=== PATIENT | male | born 1940 | race Caucasian/White ===

== ENCOUNTER → 2018-01-06 15:35 | Outpatient (REF) | payer MEDICARE, SELFPAY ==
[2018-01-06 19:46] LABS: Basophils # 0.1 K/mm3 (0-0.2); Basophils % 0.8 % (0.1-2.0); Eosinophils # 0.1 K/mm3 (0.0-0.4); Hematocrit 47.1 % (42.0-52.0); Hemoglobin 15.5 g/dL (14.1-18.0); Lymphocytes % 18.9 K/mm3 (10-50); Mean Corpuscular HGB Conc 32.9 g/dL (31.8-35.4); Mean Corpuscular Hemoglobin 29.8 pg (27.0-31.2); Mean Corpuscular Volume 90.6 fl (80-94); Mean Platelet Volume 8.6 fl (7.4-10.4); Monocytes # 0.5 K/mm3 (0.1-1.0); Monocytes % 5.1 % (1.7-9.3); Neutrophils # 7.9 K/mm3 (1.8-7.8); Neutrophils % 74.2 % (37.0-80.0); Platelet Count 244 K/mm3 (142-424); Red Cell Distribution Width 13.6 % (11.5-17.5); White Blood Count 10.7 K/mm3 (4.8-10.8)
[2018-01-06 20:32] LABS: Hemoglobin A1C 8.7 % (0.0-7.0)
[2018-01-06 20:52] LABS: Alanine Aminotransferase 23 U/L (12-78); Albumin Level 3.5 gm/dL (3.4-5.0); Alkaline Phosphatase 84 U/L (46-116); Anion Gap 17.3 mEq/L (5-15); Aspartate Amino Transferase 13 U/L (15-37); Bilirubin,Total 0.5 mg/dL (0.2-1.0); Blood Urea Nitrogen 17 mg/dL (7-18); Calcium 9.2 mg/dL (8.5-10.1); Carbon Dioxide 25 mmol/L (21.0-32.0); Chloride 103 mmol/L (98-107); Chol/HDL Ratio 4.1 (1-3.5); Cholesterol 150 mg/dL (140-200); Estimated Glomerular Filt Rate 65 ml/min (>60); GFR (African American) 79 ML/MIN (>60); Globulin 3.4 gm/dl (1.3-3.2); Glucose 239 mg/dL (74-106); HDL Cholesterol 37 mg/dL (27-67); LDL Cholesterol 71 mg/dL (0-130); Potassium 4.3 mmoL/L (3.5-5.1); Sodium 141 mmol/L (136-145); T4 (Thyroxine) 7.4 ug/dl (4.7-13.3); Thyroid Stimulating Hormone 2.87 uIU/ml (0.358-3.740); Total Protein,Serum 6.9 gm/dL (6.4-8.2); Triglycerides 212 mg/dL (30-200); VLDL Cholesterol 42 mg/dL (0-40)
[2018-01-08 12:34] LABS: Prostate Specific Ag 0.4 ng/mL (0.0-4.0)
[2018-01-08 12:35] LABS: PSA, Free 0.02 ng/mL
== END ==
LOC: LAB 15:35
PROVIDERS: Visit Provider Physician Assistant
DX: F32.1 Major depressive disorder, single episode, moderate (principal); E11.9 Type 2 diabetes mellitus without complications; E11.8 Type 2 diabetes mellitus with unspecified complications
CPT/HCPCS: 80053; 80061; 83036; 84153; 84154; 84436; 84443; 85025

== ENCOUNTER 2018-01-06 22:01 | Emergency (ER) | payer MEDICARE, SELFPAY ==
[2018-01-06 22:02] VITALS: BP 179/88; PULSE 93; RESP 16; TEMP 36.9; O2SAT 96; BMI 31.0
--- NOTE | 2018-01-06 22:13 | XR_ITS ---
XR elbow RT min 3V HISTORY: ITS.REASON: PAIN, SWELLING ORDERING PHYSICIAN: Scooter Ellis MD PATIENT AGE: 77 years COMPARISON: None FINDINGS: There are moderate osteoarthritic changes of the elbow joint with osteophytes involving the distal humerus, proximal radius and ulna. There is some decrease in joint space. The radial head has a somewhat lobular contour laterally and could be due to an old fracture. There is a positive anterior and posterior fat pad. IMPRESSION: 1. No acute displaced fracture. 2. Osteoarthritis of the elbow. 3. Positive fat pads consistent with joint effusion or hemarthrosis. If the patient has had recent trauma then, one must consider an occult fracture. In this case, CT may be of further value. There are some deformity of the radial head but this is felt to be chronic.
--- NOTE | 2018-01-06 22:13 | XR_ITS ---
XR chest 2V HISTORY: Chest pain ITS.REASON: RIGHT ARM PAIN ORDERING PHYSICIAN: Scooter Ellis MD PATIENT AGE: 77 years COMPARISON: 11/25/2014 FINDINGS: Borderline cardiomegaly without failure. Coronary artery stent versus calcification noted.. The lungs are clear without infiltrates, suspicious nodules, or pleural effusions. Degenerative change thoracic spine No acute bony abnormalities. IMPRESSION: 1. Borderline cardiomegaly with coronary artery disease 2. Otherwise negative
--- NOTE | 2018-01-06 22:26 | PC.NURSE ---
EKG COMPLETED A REPEAT WITH BETTER PLACEMENT
[2018-01-06 22:30] LABS: Basophils % 0.3 % (0.1-2.0); Eosinophils # 0.1 K/mm3 (0.0-0.4); Eosinophils % 0.6 % (0.1-12.0); Hematocrit 45.6 % (42.0-52.0); Hemoglobin 15.1 g/dL (14.1-18.0); Lymphocytes # 2.4 K/mm3 (0.7-4.5); Lymphocytes % 17.5 K/mm3 (10-50); Mean Corpuscular HGB Conc 33.2 g/dL (31.8-35.4); Mean Corpuscular Hemoglobin 29.8 pg (27.0-31.2); Mean Corpuscular Volume 89.6 fl (80-94); Mean Platelet Volume 7.9 fl (7.4-10.4); Monocytes # 0.6 K/mm3 (0.1-1.0); Monocytes % 4.2 % (1.7-9.3); Neutrophils # 10.5 K/mm3 (1.8-7.8); Neutrophils % 77.4 % (37.0-80.0); Platelet Count 248 K/mm3 (142-424); Red Blood Count 5.09 M/mm3 (4.60-6.20); Red Cell Distribution Width 13.6 % (11.5-17.5); White Blood Count 13.6 K/mm3 (4.8-10.8)
--- NOTE | 2018-01-06 22:40 | PC.NURSE ---
PT HELPED TO THE BATHROOM AT THIS TIME
[2018-01-06 22:57] LABS: Alanine Aminotransferase 20 U/L (12-78); Albumin Level 3.4 gm/dL (3.4-5.0); Albumin/Globulin Ratio 0.9 (1.1-1.8); Alkaline Phosphatase 75 U/L (46-116); Anion Gap 13.1 mEq/L (5-15); Aspartate Amino Transferase 12 U/L (15-37); Bilirubin,Total 0.5 mg/dL (0.2-1.0); Blood Urea Nitrogen 19 mg/dL (7-18); CKMB Relative Index 1.3 U/L (0-4.0); Calcium 8.9 mg/dL (8.5-10.1); Carbon Dioxide 29 mmol/L (21.0-32.0); Chloride 101 mmol/L (98-107); Creatine Kinase 60 U/L (39-308); Creatine Kinase MB 0.8 mg/ml (0.0-3.6); Creatinine Clearance Estimated 63 mL/min (0-300); Creatinine,Serum 1.25 mg/dL (0.70-1.30); Estimated Glomerular Filt Rate 56 ml/min (>60); GFR (African American) 68 ML/MIN (>60); Glucose 290 mg/dL (74-106); Potassium 4.1 mmoL/L (3.5-5.1); Sodium 139 mmol/L (136-145); Total Protein,Serum 7.4 gm/dL (6.4-8.2); Troponin I < 0.02 ng/ml (0.00-0.06)
[2018-01-06 23:02] VITALS: BP 181/91; PULSE 95; RESP 16
[2018-01-06 23:08] LABS: Lactic Acid 2.5 mmol/L (0.4-2.0)
--- NOTE | 2018-01-06 23:39 | PC.NURSE ---
PT HELPED TO THE BATHROOM AT THIS TIME
--- NOTE | 2018-01-07 00:40 | HMH.EDUPEXT ---
ED Disposition Clinical Impression: Arthritis, LBBB (left bundle branch block) Disposition: Home, Self-Care Condition on Discharge: Good Instructions: DI for Arthritis Additional Instructions: call pcp for follow up Prescriptions: predniSONE [Prednisone 20mg Tab] 20 mg PO DAILY #10 tab Referrals: Lili Seymour PA [Primary Care Provider] - - Critical Care Critical Care Time: No Attestation: On 01/06/18, the high probability of a clinically significant, sudden or life threatening deterioration of the following system(s) required my full and direct attention, intervention and personal management. The time I documented below is in addition to time spent performing reported procedures but includes the following listed in this critical care notation. Medical Decision Making - Medical Records Medical records reviewed: Yes: I reviewed the patient's medical records. Vital Signs: 01/06/18 22:02 01/06/18 23:02 Temperature 98.4 F Temperature Source Oral Pulse Rate [Right Brachial] 93 H 95 H Respiratory Rate 16 16 Blood Pressure [Right Arm] 179/88 181/91 Blood Pressure Mean [Right Arm] 118 121 02 Sat by Pulse Oximetry 96 Oxygen Delivery Method Room Air - Lab Data Lab results reviewed: Yes: I reviewed the patient's lab results. Lab Results 01/06/18 22:00: WBC 13.6 H D, RBC 5.09, Hgb 15.1, Hct 45.6, MCV 89.6, MCH 29.8, MCHC 33.2, RDW 13.6, Plt Count 248, MPV 7.9, Neut % (Auto) 77.4, Lymph % (Auto) 17.5, [place] % (Auto) 4.2, Eos % (Auto) 0.6, Baso % (Auto) 0.3, Neut # (Auto) 10.5 H, Lymph # (Auto) 2.4, [place] # (Auto) 0.6, Eos # (Auto) 0.1, Baso # (Auto) 0.0 01/06/18 22:00: Sodium 139, Potassium 4.1, Chloride 101, Carbon Dioxide 29, Anion Gap 13.1, BUN 19 H, Creatinine 1.25, Estimated Creat Clear 63, Estimated GFR 56 L, Est GFR ( Amer) 68, Glucose 290 H D, Calcium 8.9, Total Bilirubin 0.5, AST 12 L, ALT 20, Alkaline Phosphatase 75, Total Creatine Kinase 60, CK-MB (CK-2) 0.8, CK-MB (CK-2) Rel Index 1.3, Troponin I < 0.02, Total Protein 7.4, Albumin 3.4, Globulin 4.0 H, Albumin/Globulin Ratio 0.9 L 01/06/18 22:00: Lactic Acid 2.5 H Result diagrams: 01/06/18 22:00 01/06/18 22:00 Orders (Tests/Meds): ED MEDICATIONS Discontinued Medications Generic Name Dose Route Start Last Admin Trade Name Lamonteq PRN Reason Stop Dose Admin Ketorolac Tromethamine 30 mg 01/07/18 00:04 01/07/18 00:09 Toradol 30mg/Ml Vial IV 01/07/18 00:05 30 mg ONCE ONE Administration Methylprednisolone Sodium Succinate 125 mg 01/07/18 00:04 01/07/18 00:09 Solu-Medrol 125mg/2ml Vial IV 01/07/18 00:05 125 mg ONCE ONE Administration ORDERS Category Date Time Status Chest XR 2 view (NOT portable) [XR chest 2V] Stat Exams 01/06/18 22:13 Taken XR elbow RT min 3V Stat Exams 01/06/18 22:13 Taken Blood Culture Stat Micro 01/06/18 22:00 Received ECG Request by /Neville Stat Y 01/06/18 22:10 Ordered - Radiology Data #1 Image(s): Chest, Elbow Image Reviewed: Yes I reviewed the patient's radiology image Preliminary Findings: Abnormal, No Fracture Seen - ECG Data Tracing #1 I reviewed this ECG and interpreted as documented below: Normal Sinus Rhythm: Yes Conduction abnormalities present: LBBB - Cristiano Inquiry Pt receiving controlled substance: No Upper Extremity HPI - General Chief Complaint: Extremity Injury, Upper Stated Complaint: ARM PAIN Time Seen by Provider: 01/07/18 00:40 Mode of Arrival: Ambulatory Source of Information: Patient, Spouse, Relative, Medical Record Limitations: No Limitations - History of Present Illness HPI narrative: swelling and pain rt elbow w/o trauma today w/o gout hx- has diabetes and ht dis and neuropathy MD complaint: injury to: right, elbow Onset (ago): day(s) Other Extremity Injury: Right: elbow Handedness: right Place: home Severity: moderate Context: other - Related Data Home Medications Medication Instructio
--- NOTE | 2018-01-07 00:43 | ED_ITS ---
ED Disposition Clinical Impression: Arthritis, LBBB (left bundle branch block) Disposition: Home, Self-Care Condition on Discharge: Good Instructions: DI for Arthritis Additional Instructions: call pcp for follow up Prescriptions: predniSONE [Prednisone 20mg Tab] 20 mg PO DAILY #10 tab Referrals: Lili Seymour PA [Primary Care Provider] - - Critical Care Critical Care Time: No Attestation: On 01/06/18, the high probability of a clinically significant, sudden or life threatening deterioration of the following system(s) required my full and direct attention, intervention and personal management. The time I documented below is in addition to time spent performing reported procedures but includes the following listed in this critical care notation. Medical Decision Making - Medical Records Medical records reviewed: Yes: I reviewed the patient's medical records. Vital Signs: 01/06/18 22:02 01/06/18 23:02 Temperature 98.4 F Temperature Source Oral Pulse Rate [Right Brachial] 93 H 95 H Respiratory Rate 16 16 Blood Pressure [Right Arm] 179/88 181/91 Blood Pressure Mean [Right Arm] 118 121 02 Sat by Pulse Oximetry 96 Oxygen Delivery Method Room Air - Lab Data Lab results reviewed: Yes: I reviewed the patient's lab results. Lab Results 01/06/18 22:00: WBC 13.6 H D, RBC 5.09, Hgb 15.1, Hct 45.6, MCV 89.6, MCH 29.8, MCHC 33.2, RDW 13.6, Plt Count 248, MPV 7.9, Neut % (Auto) 77.4, Lymph % (Auto) 17.5, [place] % (Auto) 4.2, Eos % (Auto) 0.6, Baso % (Auto) 0.3, Neut # (Auto) 10.5 H, Lymph # (Auto) 2.4, [place] # (Auto) 0.6, Eos # (Auto) 0.1, Baso # (Auto) 0.0 01/06/18 22:00: Sodium 139, Potassium 4.1, Chloride 101, Carbon Dioxide 29, Anion Gap 13.1, BUN 19 H, Creatinine 1.25, Estimated Creat Clear 63, Estimated GFR 56 L, Est GFR ( Amer) 68, Glucose 290 H D, Calcium 8.9, Total Bilirubin 0.5, AST 12 L, ALT 20, Alkaline Phosphatase 75, Total Creatine Kinase 60, CK-MB (CK-2) 0.8, CK-MB (CK-2) Rel Index 1.3, Troponin I < 0.02, Total Protein 7.4, Albumin 3.4, Globulin 4.0 H, Albumin/Globulin Ratio 0.9 L 01/06/18 22:00: Lactic Acid 2.5 H Result diagrams: 01/06/18 22:00 01/06/18 22:00 Orders (Tests/Meds): ED MEDICATIONS Discontinued Medications Generic Name Dose Route Start Last Admin Trade Name Freq PRN Reason Stop Dose Admin Ketorolac Tromethamine 30 mg 01/07/18 00:04 01/07/18 00:09 Toradol 30mg/Ml Vial IV 01/07/18 00:05 30 mg ONCE ONE Administration Methylprednisolone Sodium Succinate 125 mg 01/07/18 00:04 01/07/18 00:09 Solu-Medrol 125mg/2ml Vial IV 01/07/18 00:05 125 mg ONCE ONE Administration ORDERS Category Date Time Status Chest XR 2 view (NOT portable) [XR chest 2V] Stat Exams 01/06/18 22:13 Taken XR elbow RT min 3V Stat Exams 01/06/18 22:13 Taken Blood Culture Stat Micro 01/06/18 22:00 Received ECG Request by /Neville Stat Y 01/06/18 22:10 Ordered - Radiology Data #1 Image(s): Chest, Elbow Image Reviewed: Yes I reviewed the patient's radiology image Preliminary Findings: Abnormal, No Fracture Seen - ECG Data Tracing #1 I reviewed this ECG and interpreted as documented below: Normal Sinus Rhythm: Yes Conduction abnormalities present: LBBB - Cristiano Inquiry Pt receiving controlled substance: No
[2018-01-07 00:46] VITALS: BP 208/101; PULSE 95; RESP 18; TEMP 36.7
== END 2018-01-07 00:52 | disposition home or self-care (01) ==
PROVIDERS: Emergency Provider Emergency Medicine; Family Provider Physician Assistant; PCP Physician Assistant
DX: M19.90 Unspecified osteoarthritis, unspecified site (principal); I44.7 Left bundle-branch block, unspecified; E11.40 Type 2 diabetes mellitus with diabetic neuropathy, unspecified; I25.2 Old myocardial infarction; Z79.82 Long term (current) use of aspirin; Z79.899 Other long term (current) drug therapy; Z86.79 Personal history of other diseases of the circulatory system
CPT/HCPCS: 71046; 73080; 80053; 80061; 82550; 82553; 83036; 83605; 84153; 84154; 84436; 84443; 84484; 85025; 87040; 93005; 93041; 96374; 96375; 99284

== ENCOUNTER → 2018-01-14 14:47 | Outpatient (CLI) | payer MEDICARE, SELFPAY ==
--- NOTE | 2018-01-14 14:48 | XR_ITS ---
XR chest 2V HISTORY: Weight loss, nausea and vomiting ITS.REASON: weight loss ORDERING PHYSICIAN: CHUCK Blancas PATIENT AGE: 77 years COMPARISON: [id number] FINDINGS: The cardiomediastinal silhouette and pulmonary vascularity are within normal limits. Coronary artery stent or calcification noted as before. Normal heart size. The lungs are clear without infiltrates, suspicious nodules, or pleural effusions. No acute bony abnormalities. IMPRESSION: No change with no acute finding
[2018-01-16 12:14] LABS: Folate 9.8 ng/mL (>3.0)
[2018-04-13 10:10] LABS: Testosterone, Total, LC/MS 266.9; Vitamin B12 195
[2018-04-13 10:11] LABS: 1,25 Dihydroxy Vitamin D 55; 1,25-Dihydroxy, Vitamin D-2 10; 1,25-Dihydroxy, Vitamin D-3 45; Testosterone,Free 11.3
== END ==
PROVIDERS: PCP Physician Assistant; Visit Provider Physician Assistant
DX: R63.4 Abnormal weight loss (principal)
CPT/HCPCS: 71046; 82607; 82652; 82746; 84402

== ENCOUNTER → 2018-01-14 14:56 | Outpatient (CLI) | payer MEDICARE, SELFPAY | PROVIDERS: Visit Provider Physician Assistant | DX: R63.4 Abnormal weight loss (principal); R53.82 Chronic fatigue, unspecified; R45.84 Anhedonia | CPT/HCPCS: 71046; 82607; 82652; 82746; 84402 ==

== ENCOUNTER → 2018-01-19 09:20 | Outpatient (CLI) | payer MEDICARE, SELFPAY | PROVIDERS: Family Provider Physician Assistant; PCP Physician Assistant; Visit Provider Physician Assistant | DX: R09.89 Other specified symptoms and signs involving the circulatory and respiratory systems (principal) ==

== ENCOUNTER → 2018-02-20 09:12 | Outpatient (POV) | payer MEDICARE, SELFPAY | PROVIDERS: Family Provider Physician Assistant; PCP Physician Assistant; Visit Provider Podiatrist | DX: Z00.00 Encounter for general adult medical examination without abnormal findings (principal) ==

== ENCOUNTER → 2018-08-05 08:44 | Outpatient (CLI) | payer MEDICARE, SELFPAY ==
[2018-08-05 09:37] LABS: Blood Urea Nitrogen 20 mg/dL (7-18); Estimated Glomerular Filt Rate 33 ml/min (>60); GFR (African American) 39 ML/MIN (>60)
--- NOTE | 2018-08-05 09:46 | CT_ITS ---
CT abdomen pelvis wo con CLINICAL INDICATION: Left lower quadrant pain ITS.REASON: LLQ PAIN ORDERING PHYSICIAN: Ev Gillis PATIENT AGE: 77 years COMPARISON: 03/18/2017 TECHNIQUE: Axial images obtained with sagittal and coronal reformats. All CT scans at the facility use one or more dose reduction, viz: automated exposure control, ma/kV adjustment per patient size (including targeted exams where dose is matched to indication, i.e. head), or iterative reconstruction technique. PROCEDURE: Oral Contrast: None IV Contrast: None . FINDINGS: Lower thoracic images show coronary artery calcification and/or stents lobe with bilateral valve annular calcification. There are multiple gallstones. The liver, spleen, adrenal glands, pancreas, and right kidney have an unremarkable appearance. There is mild left hydronephrosis and hydroureter secondary to a 3 mm stone at the ureterovesical junction. There is mild stranding of the left perinephric and periureteral fat. No intestinal obstruction or free air. Prior appendectomy. There is diverticulosis of the sigmoid colon. No evidence of diverticulitis. Prostate metallic seeds implants are noted. There is a small left inguinal hernia containing fat. No acute bony anomalies. Intramedullary kaden is present in the left femur. There is an old left symphysis pubis fracture IMPRESSION: 1. 3 mm left ureterovesical junction stone with mild left hydronephrosis and hydroureter along with stranding of the perinephric and periureteral fat on the left. 2. Cholelithiasis. 3. Left femoral hernia containing fat
== END ==
PROVIDERS: Family Provider Physician Assistant; PCP Nurse Practitioner Family; Visit Provider Nurse Practitioner Family
DX: R10.32 Left lower quadrant pain (principal)
CPT/HCPCS: 36415; 74176; 82565; 84520

== ENCOUNTER → 2019-04-16 07:53 | Outpatient (CLI) | payer MEDICARE, SELFPAY ==
--- NOTE | 2019-04-16 | CA_ITS ---
PROCEDURE: 2-D M-mode and color Doppler study INDICATIONS FOR THE TEST: Chest pain COPD Heart Murmur Tobacco Smoking Palpitations Fatigue+ Syncope Edema Hypertension+Diabetes Mellitus+ Rheumatic Fever SOB KIM Obesity Hyperlipidemia+ Family History HD Additional History CHF, CAD, GERD, HX OF MD, 3 STENTS PATIENT INFORMATION HEIGHT: 67 WEIGHT: 171 GENDER: Male B/P: 119/80 2-D/M-MODE INTERPRETATION: 2-D MEASUREMENTS OBSERVED VALUES IN CMS Right Ventricular Dimension (RVDd) 2.2 Interventricular Septum (Thickness)(IVsd) 1.1 Left Ventricular Internal Dimensions(LVIDd) 2.3 Left Ventricular Posterior Wall (Thickness)(LVPWd) 1.1 Aortic Root 3.5 Aortic Cusp Separation 2.2 Left Atrial Dimensions (LAD) 3.9 2D 1. Left atrium is mildly enlarged, left ventricle is normal size, mild concentric left ventricular hypertrophy, visually estimated ejection fraction 55%, there is abnormal septal motion. 2. The right atrium and right ventricle are normal size and contractility. 3. The aortic valve is thickened and calcified leaflet continue to display mobility. 4. Mitral and tricuspid valve leaflets are minimally thickened. 5. The pulmonic valve is poorly visualized. 6. No significant pericardial effusion noted. DOPPLER INTERROGATION: Doppler interrogation of the aortic, mitral and tricuspid valvular presence of mild mitral and tricuspid regurgitation, tricuspid regurgitation jet velocity is inadequate for calculation of the right ventricular systolic pressure, grade 1 diastolic dysfunction seen without tissue Doppler evidence of raised left atrial pressure. CONCLUSION: 1. Mildly enlarged left atrium, normal left ventricular size, mild concentric left ventricular hypertrophy, visually estimated ejection fraction 55%, there is abnormal septal motion, grade 1 diastolic dysfunction seen without tissue Doppler evidence of raised left atrial pressure. 2. Thickened and calcified aortic valve without aortic stenosis aortic insufficiency. 3. Mild mitral and tricuspid regurgitation 4. No significant pericardial effusion noted.
--- NOTE | 2019-04-16 07:57 | CT_ITS ---
CT head/brain wo con HISTORY: ITS.REASON: MILD COGNITIVE IMPAIMENT, HTN,FATIGUE ORDERING PHYSICIAN: Phil Yeager MD PATIENT AGE: 78 years COMPARISON: None TECHNIQUE: Axial images obtained without contrast. Brain and bone windows reviewed. All CT scans at the facility use one or more dose reduction, viz: automated exposure control, ma/kV adjustment per patient size (including targeted exams where dose is matched to indication, i.e. head), or iterative reconstruction technique. FINDINGS: No midline shift, mass effect, intracranial hemorrhage, hydrocephalus, or extra-axial fluid collection is evident. There is an old lacunar infarction with cystic encephalomalacia in the left basal ganglia anteriorly. There is mild generalized atrophy. The calvarium has an unremarkable appearance. No mastoid effusion. No sinus air-fluid levels.. IMPRESSION: 1. No acute intracranial findings. 2. Atrophy with old lacunar infarction of left basal ganglia
== END ==
PROVIDERS: PCP Internal Medicine Adolescent Medicine; Visit Provider Internal Medicine Adolescent Medicine
DX: G31.84 Mild cognitive impairment of uncertain or unknown etiology (principal); I10 Essential (primary) hypertension; R53.83 Other fatigue; R06.02 Shortness of breath
CPT/HCPCS: 70450; 93306; G0399

== ENCOUNTER → 2019-05-13 11:36 | Outpatient (CLI) | payer MEDICARE, SELFPAY | PROVIDERS: Visit Provider Urology | DX: C61 Malignant neoplasm of prostate (principal) | CPT/HCPCS: 36415; 84153 ==

== ENCOUNTER → 2019-08-30 11:29 | Outpatient (CLI) | payer MEDICARE, SELFPAY ==
[2019-08-30 14:56] LABS: Hemoglobin A1C 6.8 % (0.0-7.0)
== END ==
PROVIDERS: PCP Internal Medicine Adolescent Medicine; Visit Provider Internal Medicine Adolescent Medicine
DX: E11.9 Type 2 diabetes mellitus without complications (principal); Z79.4 Long term (current) use of insulin
CPT/HCPCS: 83036

== ENCOUNTER 2020-02-19 21:14 | Observation (INO) ==
[2020-02-19 21:26] LABS: Basophils # 0.1 K/mm3 (0-0.2); Basophils % 0.5 % (0.1-2.0); Eosinophils # 0.2 K/mm3 (0.0-0.4); Eosinophils % 1.1 % (0.1-12.0); Hematocrit 38.6 % (42.0-52.0); Hemoglobin 12.4 g/dL (14.1-18.0); Lymphocytes % 15.1 % (10-50); Mean Corpuscular HGB Conc 32.2 g/dL (31.8-35.4); Mean Corpuscular Volume 88.8 fl (80-94); Mean Platelet Volume 7.1 fl (7.4-10.4); Monocytes # 0.6 K/mm3 (0.1-1.0); Monocytes % 4.5 % (1.7-9.3); Neutrophils # 10.5 K/mm3 (1.8-7.8); Neutrophils % 78.9 % (37.0-80.0); Platelet Count 379 K/mm3 (142-424); Red Blood Count 4.35 M/mm3 (4.60-6.20); Red Cell Distribution Width 12.8 % (11.5-17.5); White Blood Count 13.3 K/mm3 (4.8-10.8)
[2020-02-19 21:31] LABS: Activated Partial Thrombo Time 25.9 seconds (23.6-34.0); INR 0.93 (0.9-1.1); Prothrombin Time 9.7 seconds (9.4-11.8)
[2020-02-19 21:33] LABS: Anion Gap 13.6 mEq/L (5-15)
[2020-02-19 21:34] LABS: Calcium 9.2 mg/dl (8.4-10.2)
[2020-02-19 21:39] LABS: Microscopic, Urine URINE MICROSCOPIC (MICROSCOPIC)
[2020-02-19 22:08] LABS: Appearance,Urine CLEAR (Clear); Bilirubin,Urine Negative (Negative); Blood, Urine 2+ (Negative); Color,Urine YELLOW (Yellow); Glucose,Urine (UA) Negative (Negative); Ketones,Urine Negative (Negative); Leukocyte Esterase,Urine Negative (Negative); Protein,Urine TRACE (Negative); Specific Gravity, Urine 1.025 (1.005-1.030); Urobilinogen,Urine 0.2 EU/dl (0.2)
--- NOTE | 2020-02-19 22:12 | Emergency Department Note ---
ED Disposition Clinical Impression: SIRS (systemic inflammatory response syndrome), LBBB (left bundle branch block), BRUCE (acute kidney injury) Type 2 diabetes mellitus Qualifiers: Diabetes mellitus intermediate insulin use: unspecified terminal make up operator insulin use status Diabetes mellitus complication status: with other specified complication Qualified Code(s): E11.69 - Type 2 diabetes mellitus with other specified complication Disposition: Admitted as Observation Condition on Discharge: Good Referrals: Provider,Referral, MD [Primary Care Provider] - - Critical Care Critical Care Time: No Attestation: On 02/19/20, the high probability of a clinically significant, sudden or life threatening deterioration of the following system(s) required my full and direct attention, intervention and personal management. The time I documented below is in addition to time spent performing reported procedures but includes the following listed in this critical care notation. Medical Decision Making - Medical Records Medical records reviewed: Yes: I reviewed the patient's medical records. - Cristiano Inquiry Pt receiving controlled substance: No Vital Signs: 02/19/20 21:06 02/19/20 21:36 02/19/20 22:29 Temperature 100.2 F H Temperature Source Rectal Pulse Rate [Left Radial] 104 H 94 H 96 H Respiratory Rate 16 16 16 Blood Pressure [Right Arm] 175/87 H 175/96 H 165/99 H Blood Pressure Mean [Right Arm] 116 122 121 Blood Pressure Source [Right Arm] Automatic Cuff Automatic Cuff Blood Pressure Position [Right Arm] Sitting Sitting Sitting 02 Sat by Pulse Oximetry 97 97 97 Oxygen Delivery Method Room Air Room Air Room Air 02/19/20 22:30 02/19/20 23:00 Temperature 99.1 F Temperature Source Oral Pulse Rate [Left Radial] 98 H 100 H Respiratory Rate 18 18 Blood Pressure [Right Arm] 189/96 H 188/93 H Blood Pressure Mean [Right Arm] 127 124 Blood Pressure Source [Right Arm] Automatic Cuff Automatic Cuff Blood Pressure Position [Right Arm] Supine Supine 02 Sat by Pulse Oximetry 99 99 Oxygen Delivery Method Room Air - Lab Data Lab results reviewed: Yes: I reviewed the patient's lab results. Lab Results 02/19/20 21:05: WBC 13.3 H, RBC 4.35 L, Hgb 12.4 L, Hct 38.6 L, MCV 88.8, MCH 28.6, MCHC 32.2, RDW 12.8, Plt Count 379, MPV 7.1 L, Neut % (Auto) 78.9, Lymph % (Auto) 15.1, [place] % (Auto) 4.5, Eos % (Auto) 1.1, Baso % (Auto) 0.5, Neut # (Auto) 10.5 H, Lymph # (Auto) 2.0, [place] # (Auto) 0.6, Eos # (Auto) 0.2, Baso # (Auto) 0.1 02/19/20 21:05: Sodium 136, Potassium 5.6 H, Chloride 98, Carbon Dioxide 30, Anion Gap 13.6, BUN 30 H, Creatinine 2.40 H, Estimated Creat Clear 24, Estimated GFR 26 L, Est GFR ( Amer) 32 L, Glucose 157 H, Calcium 9.2 02/19/20 21:05: PT 9.7, INR 0.93, APTT 25.9 02/19/20 21:05: Lactate 2.1 02/19/20 21:05: Troponin I < 0.01 02/19/20 21:30: Urine Color Yellow, Urine Appearance Clear, Urine pH 6.0, Ur Specific [place] 1.025, Urine Protein Trace, Urine Glucose (UA) Negative, Urine Ketones Negative, Urine Blood 2+, Urine Nitrate Negative, Urine Bilirubin Negative, Urine Urobilinogen 0.2, Ur Leukocyte Esterase Negative, Urine RBC 5- 10, Hyaline Casts 3-5, Coarse Granular Casts Occasional 02/19/20 21:30: Influenza Type A Ag Negative, Influenza Type B Ag Negative Result diagrams: 02/19/20 21:05 02/19/20 21:05 Orders (Tests/Meds): ED MEDICATIONS Generic Name Dose Route Start Last Admin Trade Name Freq PRN Reason Stop Dose Admin Sodium Chloride 1,000 mls @ 999 mls/hr 02/19/20 22:15 02/19/20 22:11 Sod Chlor 0.9% 1000ml Bag IV 02/19/20 23:15 999 mls/hr .Q1H1M CARLOS Administration ORDERS Category Date Time Status CXR --portable [XR chest portable] Stat Exams 02/19/20 22:22 Taken C-Reactive Protein Stat Lab 02/19/20 21:05 Received ESR [Erythrocyte Sedimentation Rate] Stat Lab 02/19/20 21:05 Received POC Glucose,Bedside Stat Lab 02/19/20 21:17 Ordered Troponin I Q3H Lab 02/20/20 01:15 Ordered Troponin I Q3H Lab 02/20/20 04:15 Ordered Uric Acid Stat Lab 02/19/20 21:05 Received Blood Culture Stat Micro 02/19/20 21:05 Received - Radiology Data #1 Image(s): Chest Image Reviewed: Yes I reviewed the patient's radiology image Preliminary Findings: Abnormal (cm) - CT Data CT Scan: Head Time Received: 23:[address] Reviewed: Yes: I have viewed the radiologist's interpretation Preliminary Findings: Abnormal (see report) - ECG Data Tracing #1 Normal Sinus Rhythm: Yes Ischemic changes: non-specific ST-T wave changes Conduction abnormalities present: LBBB ECG compared to prior tracings: there are no significant changes - Physician Consults Physician Consulted: temitope Reason -: Admission Neuro HPI - General Chief Complaint: Neuro Symptoms/Deficit Stated Complaint: right sided weakness Time Seen by Provider: 02/19/20 21:15 Mode of Arrival: Ambulatory Source of Information: Patient, EMS, Medical Record Limitations: No Limitations Description of Symptoms (Recalled from ER Triage Doc. by RN): pt stated the pt has had increased weakness on the right side since yesterday. pt is right handed and is usually able to feed and dress himself. pt isnt able to use his right hand and is unsteady on the right side when ambulating. pt has dementia and is unable to answer history questions. - History of Present Illness HPI Narrative: family reports temp 100.8 today and had pain and dec use of rt wrist - prev cva and has dementia and dec in speech function - no trauma - no cough Onset (ago): hour(s) Timing confirmed by: family member Location: right arm History of same: No Severity: moderate Context: gradual onset On Anticoagulants: No Associated symptoms: denies other symptoms Treatments Prior to Arrival: none - Related Data Home Medications: Home Medications Medication Instructions Recorded Confirmed aspirin 81 mg tablet,delayed 81 mg PO QDAY 12/04/17 02/19/20 release finasteride 5 mg tablet 5 mg PO ONCE 01/26/18 02/19/20 nitroglycerin 0.4 mg sublingual 0.4 mg SUBLINGUAL Q5M PRN 01/26/18 02/19/20 tablet Losartan Potassium [Cozaar 100mg 100 mg PO DAILY 09/23/18 02/19/20 Tablets] metformin 1,000 mg tablet 500 mg PO DAILY 90 Days tab 03/15/19 02/19/20 donepezil 5 mg tablet 10 mg PO DAILY tab 05/31/19 02/19/20 insulin glargine 100 unit/mL (3 15 unit SQ DAILY ml 05/31/19 02/19/20 mL) subcutaneous pen oxybutynin chloride 5 mg tablet 5 mg PO BID 01/25/20 02/19/20 Allergies/Adverse Reactions: Allergies Allergy/AdvReac Type Severity Reaction Status Date / Time pregabalin [From Lyrica] Allergy Verified 01/25/20 14:23 Stroke Alert/NIH Score - LOC Stroke Alert: Yes Stroke Alert date: 02/19/20 Stroke Alert time of activation: 21:00 Level of Consciousness: Alert LOC Questions: Both incorrect LOC Commands: Obeys both correctly - Facial/Visual Best Gaze: Normal Visual: No visual loss Facial Palsy: Normal - Motor Motor Response, Left Arm: No drift/Amputation/Fused Motor Response, Right Arm: Drift Motor Response, Left Leg: No drift/Amputation/Fused Motor Response, Right Leg: No drift/Amputation/Fused - Sensory/Language Limb Ataxia: Absent Sensory: Normal Best Language: Mild to moderate aphasia Dysarthria: Normal speech, Intubated or Barrier present - NIH Score Stroke Risk Score: 2 [facility] History - Hepatitis A Screen Drug use history?: No High risk sexual behaviors?: No History of sexually transmitted infection?: No Currently employed?: No Childcare worker?: No Do you have indoor plumbing?: Yes Do you have electricity?: Yes Attestation statement:: This patient has been screened for Hepatitis A risk factors. I have reviewed the patient's past medical history: Yes Medical History: Reports:: Cancer, Congestive Heart Failure, Coronary Artery Disease, Depression, Diabetes Mellitus Type 2, Gastroesophageal Reflux Disease(GERD), Myocardial Infarction Denies:: Diabetes Mellitus Type 1, Hyperlipidemia, Hypertension, Internal Pacemaker, Lung Disease, Seizures Other Medical History: Reports: Anemia Comment: BPH, Mild cognitive impairment, episode of major depression disorder, sleep disturbance Other Surgeries: Yes: Appendectomy, Cancer Surgery, Colonoscopy, Coronary Stent, Other. No: Pacemaker Amputation: No Fractures: No Comment: surgery Left leg - Social History Smoking Status: Never smoker Tobacco Type: cigarettes Alcohol Intake: never Alcohol Intake Frequency:: other Substance Use Type: denies use Occupational Status: retired Housing: house Household Members: family - Psychiatric History Pschychiatric History:: Reports:: Depression Family Hx:: Heart Attack, Diabetes ROS Obtained: Yes All systems reviewed & no additional complaints - Constitutional Constitutional: Reports fever(s) - Eyes Eyes: Denies change in vision - ENT Ears, Nose, Mouth, and Throat: Denies sore throat - Cardiovascular Cardiovascular: Denies chest pain - Respiratory Respiratory: No cough - Gastrointestinal Gastrointestingal: Denies: diarrhea - Genitourinary Male Genitourinary: Denies hematuria - Musculoskeletal Musculoskeletal: Reports as per HPI, Reports joint pain, Reports joint swelling, Reports limited range of motion - Integumentary/Breasts Skin/Breast: Denies rash - Neurologic Neurologic: Reports as per HPI, Reports abnormal speech, Denies focal weakness, Denies loss of vision, Denies seizure-like activity Physical Exam - General General appearance: alert - Head Head exam: normocephalic - Eye Eye exam: Present: PERRL, EOMI. Absent: scleral icterus - ENT ENT exam: Present: mucous membranes dry - Neck Neck exam: Present: trachea midline - Respiratory Respiratory exam: Present: normal lung sounds bilaterally. Absent: respiratory distress - Cardiovascular Cardiovascular exam: Present: regular rate, systolic murmur - Abdominal Exam Abdominal exam: Present: soft - Expanded Upper Extremity Exam Right Forearm/Wrist exam: Present: tenderness, swelling, other (inc warmth). Absent: full ROM Vascular exam: Normal: capillary refill - Neurological Exam Neurological exam: Present: alert, CN II-XII intact - Skin Skin exam: Absent: rash
[2020-02-19 22:14] LABS: Coarse Granular Casts,Urine Occasional #/lpf (0)
[2020-02-19 23:46] LABS: Uric Acid 6.7 mg/dl (3.5-8.5)
[2020-02-19 23:51] LABS: C-Reactive Protein 58.2 mg/L (0-4)
[2020-02-20 04:54] LABS: Anion Gap 11.6 mEq/L (5-15); Blood Urea Nitrogen 32 mg/dl (9-20); Calcium 8.7 mg/dl (8.4-10.2); Carbon Dioxide 25 mmol/L (22.0-30.0); Chloride 102 mmol/L (98-107); Sodium 133 mmol/L (136-145)
[2020-02-20 05:10] LABS: Glucose 195 mg/dl (74-100)
[2020-02-20 05:12] LABS: Basophils % 0.2 % (0.1-2.0); Eosinophils % 0.1 % (0.1-12.0); Hematocrit 34.8 % (42.0-52.0); Hemoglobin 11.5 g/dL (14.1-18.0); Lymphocytes # 0.9 K/mm3 (0.7-4.5); Lymphocytes % 7.6 % (10-50); Mean Corpuscular HGB Conc 33.1 g/dL (31.8-35.4); Mean Corpuscular Volume 86.3 fl (80-94); Mean Platelet Volume 7.8 fl (7.4-10.4); Monocytes # 0.2 K/mm3 (0.1-1.0); Monocytes % 1.7 % (1.7-9.3); Neutrophils # 11.1 K/mm3 (1.8-7.8); Neutrophils % 90.4 % (37.0-80.0); Platelet Count 343 K/mm3 (142-424); Red Blood Count 4.03 M/mm3 (4.60-6.20); Red Cell Distribution Width 12.9 % (11.5-17.5); White Blood Count 12.3 K/mm3 (4.8-10.8)
[2020-02-20 06:36] LABS: Lymphocytes % 4 % (10-50); Neutrophils % 90 % (42-76); RBC Morphology Normal; Total Cells Counted 100
--- NOTE | 2020-02-20 08:04 | Pharmacy Consult Notes ---
[facility] Pharmacy VTE Monitoring - Patient Demographics Admission date: 02/20/20 Report Date: 02/20/20 Time: 08:04 Allergies/Adverse Reactions: Patient Allergies pregabalin [From Lyrica] Allergy (Verified 01/25/20 14:23) Height: 1.7 m Weight: 76.26 kg Patient Problems: Current Active Problems SIRS (systemic inflammatory response syndrome) (Acute) BRUCE (acute kidney injury) (Acute) LBBB (left bundle branch block) (Acute) Type 2 diabetes mellitus (Acute) - VTE Risk Labs: VTE Related Lab Results Hgb 11.5 g/dL (14.1-18.0) L 02/20/20 04:30 Hct 34.8 % (42.0-52.0) L 02/20/20 04:30 Plt Count 343 K/mm3 (142-424) 02/20/20 04:30 PT 9.7 seconds (9.4-11.8) 02/19/20 21:05 INR 0.93 (0.9-1.1) 02/19/20 21:05 APTT 25.9 seconds (23.6-34.0) 02/19/20 21:05 BUN 32 mg/dl (9-20) H 02/20/20 04:30 Creatinine 2.20 mg/dl (0.66-1.25) H 02/20/20 04:30 Estimated Creat Clear 29 mL/min (50-200) 02/20/20 04:30 VTE Score: 8 VTE Risk Level: Moderate Risk - Prophylaxis Types of VTE Prophylaxis: TEDS Knee High (HARDIK HOSE ORDER PLACED) Location of Applied Device: Not Applicable
--- NOTE | 2020-02-20 10:25 | H&P/Discharge Summary ---
General - General Admission date:: 02/20/20 Discharge date: 02/20/20 *Admission Date: 02/20/20 *Chief complaint: Fatigue, wrist pain, SIRS *History of present illness: 79-year-old gentleman with history of dementia, diabetes, progressive decline over the past several months who presents from home via EMS to the ER. Patient recently excepted to hospice for further management of his dementia. Family has been pleased with the daily nursing assistance however displeased with patient's medical management as they were not fully aware that his symptoms would be managed and not treated more aggressively. They state over the past 24 to 48 hours prior to admission he had developed some worsening weakness. Additionally had some acute onset of right wrist pain with no known trauma. Upon presentation, patient found to have warm tender right wrist. Additionally noted to have worsening BRUCE. Was quite fatigued and had Sirs criteria with tachycardia and elevated white count. No focal source of infection identified at this time. Initiated on antibiotics with cultures obtained. IV fluids administered. Admitted to medicine for further management and observation overnight. [facility] History Medical History: Reports:: Cancer (Prostate), Congestive Heart Failure, Coronary Artery Disease, Depression, Diabetes Mellitus Type 2, Gastroesophageal Reflux Disease(GERD), Myocardial Infarction Denies:: Diabetes Mellitus Type 1, Hyperlipidemia, Hypertension, Internal Pacemaker, Lung Disease, Seizures *Have you ever received a pneumonia vaccine?: Yes *Have you received a flu vaccine this season?: Yes Other Medical History: Reports: Anemia Other Surgeries: Yes: Appendectomy, Cancer Surgery, Colonoscopy, Coronary Stent, Other. No: Pacemaker Amputation: No Fractures: No - *Social History Smoking Status: Never smoker Tobacco Type: cigarettes Alcohol Intake: never Alcohol Intake Frequency:: other Substance Use Type: denies use *Occupational Status:: retired Housing: house Household Members: spouse *Travel in the last 8 weeks: None - Psychiatric History Pschychiatric History:: Reports:: Depression Family Hx:: Unable to obtain Review of Systems - *Neurologic Reports abnormal speech, Denies localized weakness, Denies loss of vision, Denies seizure-like activity Exam Vital signs and Labs for Last 24 Hours: Temp Pulse Resp BP Pulse Ox 98.2 F 76 18 126/63 95 02/20/20 07:48 02/20/20 07:48 02/20/20 07:48 02/20/20 07:48 02/20/20 07:48 Laboratory Results - last 24 hr 02/19/20 21:05: WBC 13.3 H, RBC 4.35 L, Hgb 12.4 L, Hct 38.6 L, MCV 88.8, MCH 28.6, MCHC 32.2, RDW 12.8, Plt Count 379, MPV 7.1 L, Neut % (Auto) 78.9, Lymph % (Auto) 15.1, [place] % (Auto) 4.5, Eos % (Auto) 1.1, Baso % (Auto) 0.5, Neut # (Auto) 10.5 H, Lymph # (Auto) 2.0, [place] # (Auto) 0.6, Eos # (Auto) 0.2, Baso # (Auto) 0.1 02/19/20 21:05: Sodium 136, Potassium 5.6 H, Chloride 98, Carbon Dioxide 30, Anion Gap 13.6, BUN 30 H, Creatinine 2.40 H, Estimated Creat Clear 24, Estimated GFR 26 L, Est GFR ( Amer) 32 L, Glucose 157 H, Calcium 9.2 02/19/20 21:05: PT 9.7, INR 0.93, APTT 25.9 02/19/20 21:05: Lactate 2.1 02/19/20 21:05: Troponin I < 0.01 02/19/20 21:05: ESR 85 H 02/19/20 21:05: Uric Acid 6.7, C-Reactive Protein 58.2 H 02/19/20 21:30: Urine Color Yellow, Urine Appearance Clear, Urine pH 6.0, Ur Specific [place] 1.025, Urine Protein Trace, Urine Glucose (UA) Negative, Urine Ketones Negative, Urine Blood 2+, Urine Nitrate Negative, Urine Bilirubin Negative, Urine Urobilinogen 0.2, Ur Leukocyte Esterase Negative, Urine RBC 5- 10, Hyaline Casts 3-5, Coarse Granular Casts Occasional 02/19/20 21:30: Influenza Type A Ag Negative, Influenza Type B Ag Negative 02/20/20 01:20: Troponin I < 0.01 02/20/20 01:20: Lactate 1.2 02/20/20 04:30: Sodium 133 L, Potassium 5.6 H, Chloride 102, Carbon Dioxide 25, Anion Gap 11.6, BUN 32 H, Creatinine 2.20 H, Estimated Creat Clear 29, Estimated GFR 29 L, Est GFR ( Amer) 35 L, Glucose 195 H D, Calcium 8.7, Troponin I < 0.01 02/20/20 04:30: WBC 12.3 H, RBC 4.03 L, Hgb 11.5 L, Hct 34.8 L, MCV 86.3, MCH 28.6, MCHC 33.1, RDW 12.9, Plt Count 343, MPV 7.8, Neut % (Auto) 90.4 H, Lymph % (Auto) 7.6 L, [place] % (Auto) 1.7, Eos % (Auto) 0.1, Baso % (Auto) 0.2, Neut # (Auto) 11.1 H, Lymph # (Auto) 0.9, [place] # (Auto) 0.2, Eos # (Auto) 0.0, Baso # (Auto) 0.0, Total Counted 100, Neutrophils % (Manual) 90 H, Band Neutrophils % 6.0, Lymphocytes % (Manual) 4 L, Platelet Estimate Normal, RBC Morphology Normal 02/20/20 06:22: POC Glucose 215 H I & O for Last 24 hours: Intake & Output 02/17/20 02/18/20 02/19/20 02/20/20 23:59 23:59 23:59 23:59 Intake Total 804 / 804 Balance 804 / 804 Weight 68.039 kg 76.26 kg - Constitutional no acute distress, average body habitus, cooperative - *Routine HEENT Exam Head: Present: normocephalic Eye: Present: EOMI, PERRL ENT: Present: mucous membranes moist - *Routine Neck Exam Present: supple. Absent: lymphadenopathy - *Routine Respiratory Exam Present: CTA bilaterally - *Routine Cardiovascular Exam Present: RRR - *Routine Abdominal Exam Present: soft, normoactive bowel sounds. Absent: tenderness - *Routine Extremities Exam Absent: cyanosis, clubbing, edema Comments: Right wrist mildly warm compared to left, tender to palpation on the dorsum of right wrist, no significant swelling or erythema; movement in hands bilaterally intact. No other swollen joints appreciated - *Routine Skin Exam Present: warm. Absent: rash - *Routine Neurological Exam Present: alert Oriented x2. Cooperative. No focal neurologic deficits Hospital Course Hospital Course: Admitted to medicine for Sirs and BRUCE. Responded well to IV fluids with improvement in creatinine. Tolerating p.o. intake. Patient appeared in no distress this morning on exam. Stated he was feeling much better and comfortable going home. Had discussion with patient's who felt comfortable taking him home at this time. Plan to complete empiric course of Augmentin while cultures are pending. Suspect right wrist was warm and painful due to gout however given patient's diabetes and worsening kidney function. Will repeat labs later this week and have close follow-up in the outpatient setting. Patient afebrile, hemodynamically stable, decreased blood pressure medication dosage in the setting of BRUCE and using an ARB at home. Stressed the importance of p.o. fluids to . She felt comfortable taking him home today. Denies chest pain, nausea, vomiting, diarrhea, dysuria, focal weakness, confusion. No complaint of pain until right wrist is touched however has good range of motion. Medically stable for discharge Results Labs on day of discharge: Labs from last 24 hours 02/20/20 02/20/20 02/20/20 06:22 04:30 04:30 WBC 12.3 H RBC 4.03 L Hgb 11.5 L Hct 34.8 L MCV 86.3 MCH 28.6 MCHC 33.1 RDW 12.9 Plt Count 343 MPV 7.8 Neut % (Auto) 90.4 H Lymph % (Auto) 7.6 L [place] % (Auto) 1.7 Eos % (Auto) 0.1 Baso % (Auto) 0.2 Neut # (Auto) 11.1 H Lymph # (Auto) 0.9 [place] # (Auto) 0.2 Eos # (Auto) 0.0 Baso # (Auto) 0.0 Total Counted 100 Neutrophils % (Manual) 90 H Band Neutrophils % 6.0 Lymphocytes % (Manual) 4 L Platelet Estimate Normal RBC Morphology Normal ESR PT INR APTT Sodium 133 L Potassium 5.6 H Chloride 102 Carbon Dioxide 25 Anion Gap 11.6 BUN 32 H Creatinine 2.20 H Estimated Creat Clear 29 Estimated GFR 29 L Est GFR ( Amer) 35 L Glucose 195 H D POC Glucose 215 H Lactate Uric Acid Calcium 8.7 Troponin I < 0.01 C-Reactive Protein Urine Color Urine Appearance Urine pH Ur Specific [place] Urine Protein Urine Glucose (UA) Urine Ketones Urine Blood Urine Nitrate Urine Bilirubin Urine Urobilinogen Ur Leukocyte Esterase Urine RBC Hyaline Casts Coarse Granular Casts Influenza Type A Ag Influenza Type B Ag 02/20/20 02/20/20 02/19/20 01:20 01:20 21:30 WBC RBC Hgb Hct MCV MCH MCHC RDW Plt Count MPV Neut % (Auto) Lymph % (Auto) [place] % (Auto) Eos % (Auto) Baso % (Auto) Neut # (Auto) Lymph # (Auto) [place] # (Auto) Eos # (Auto) Baso # (Auto) Total Counted Neutrophils % (Manual) Band Neutrophils % Lymphocytes % (Manual) Platelet Estimate RBC Morphology ESR PT INR APTT Sodium Potassium Chloride Carbon Dioxide Anion Gap BUN Creatinine Estimated Creat Clear Estimated GFR Est GFR ( Amer) Glucose POC Glucose Lactate 1.2 Uric Acid Calcium Troponin I < 0.01 C-Reactive Protein Urine Color Urine Appearance Urine pH Ur Specific [place] Urine Protein Urine Glucose (UA) Urine Ketones Urine Blood Urine Nitrate Urine Bilirubin Urine Urobilinogen Ur Leukocyte Esterase Urine RBC Hyaline Casts Coarse Granular Casts Influenza Type A Ag Negative Influenza Type B Ag Negative 02/19/20 02/19/20 02/19/20 21:30 21:05 21:05 WBC RBC Hgb Hct MCV MCH MCHC RDW Plt Count MPV Neut % (Auto) Lymph % (Auto) [place] % (Auto) Eos % (Auto) Baso % (Auto) Neut # (Auto) Lymph # (Auto) [place] # (Auto) Eos # (Auto) Baso # (Auto) Total Counted Neutrophils % (Manual) Band Neutrophils % Lymphocytes % (Manual) Platelet Estimate RBC Morphology ESR 85 H PT INR APTT Sodium Potassium Chloride Carbon Dioxide Anion Gap BUN Creatinine Estimated Creat Clear Estimated GFR Est GFR ( Amer) Glucose POC Glucose Lactate Uric Acid 6.7 Calcium Troponin I C-Reactive Protein 58.2 H Urine Color Yellow Urine Appearance Clear Urine pH 6.0 Ur Specific [place] 1.025 Urine Protein Trace Urine Glucose (UA) Negative Urine Ketones Negative Urine Blood 2+ Urine Nitrate Negative Urine Bilirubin Negative Urine Urobilinogen 0.2 Ur Leukocyte Esterase Negative Urine RBC 5-10 Hyaline Casts 3-5 Coarse Granular Casts Occasional Influenza Type A Ag Influenza Type B Ag 02/19/20 02/19/20 02/19/20 21:05 21:05 21:05 WBC RBC Hgb Hct MCV MCH MCHC RDW Plt Count MPV Neut % (Auto) Lymph % (Auto) [place] % (Auto) Eos % (Auto) Baso % (Auto) Neut # (Auto) Lymph # (Auto) [place] # (Auto) Eos # (Auto) Baso # (Auto) Total Counted Neutrophils % (Manual) Band Neutrophils % Lymphocytes % (Manual) Platelet Estimate RBC Morphology ESR PT 9.7 INR 0.93 APTT 25.9 Sodium Potassium Chloride Carbon Dioxide Anion Gap BUN Creatinine Estimated Creat Clear Estimated GFR Est GFR ( Amer) Glucose POC Glucose Lactate 2.1 Uric Acid Calcium Troponin I < 0.01 C-Reactive Protein Urine Color Urine Appearance Urine pH Ur Specific [place] Urine Protein Urine Glucose (UA) Urine Ketones Urine Blood Urine Nitrate Urine Bilirubin Urine Urobilinogen Ur Leukocyte Esterase Urine RBC Hyaline Casts Coarse Granular Casts Influenza Type A Ag Influenza Type B Ag 02/19/20 02/19/20 21:05 21:05 WBC 13.3 H RBC 4.35 L Hgb 12.4 L Hct 38.6 L MCV 88.8 MCH 28.6 MCHC 32.2 RDW 12.8 Plt Count 379 MPV 7.1 L Neut % (Auto) 78.9 Lymph % (Auto) 15.1 [place] % (Auto) 4.5 Eos % (Auto) 1.1 Baso % (Auto) 0.5 Neut # (Auto) 10.5 H Lymph # (Auto) 2.0 [place] # (Auto) 0.6 Eos # (Auto) 0.2 Baso # (Auto) 0.1 Total Counted Neutrophils % (Manual) Band Neutrophils % Lymphocytes % (Manual) Platelet Estimate RBC Morphology ESR PT INR APTT Sodium 136 Potassium 5.6 H Chloride 98 Carbon Dioxide 30 Anion Gap 13.6 BUN 30 H Creatinine 2.40 H Estimated Creat Clear 24 Estimated GFR 26 L Est GFR ( Amer) 32 L Glucose 157 H POC Glucose Lactate Uric Acid Calcium 9.2 Troponin I C-Reactive Protein Urine Color Urine Appearance Urine pH Ur Specific [place] Urine Protein Urine Glucose (UA) Urine Ketones Urine Blood Urine Nitrate Urine Bilirubin Urine Urobilinogen Ur Leukocyte Esterase Urine RBC Hyaline Casts Coarse Granular Casts Influenza Type A Ag Influenza Type B Ag DS: Diagnosis - Discharge Diagnosis (1) Dementia Status: Chronic (2) BRUCE (acute kidney injury) Status: Acute (3) SIRS (systemic inflammatory response syndrome) Status: Acute (4) Type 2 diabetes mellitus Status: Chronic (5) Gout attack Status: Acute Problem details: right wrist Discharge Plan - Patient Discharge Instructions ACTIVITY: Continue current activity DIET: continue same diet Patient Instructions: DI for Diabetes Type 2, DI for Acute Kidney Injury - Follow up Plan Follow up with: Phil Yeager MD [Staff Physician] - 2 weeks Disposition: Home, Self-Group Home Medications: Home Medications Medication Instructions Recorded Confirmed Type aspirin 81 mg tablet,delayed 81 mg PO DAILY 12/04/17 02/20/20 History release finasteride 5 mg tablet 5 mg PO ONCE 01/26/18 02/19/20 History metformin 1,000 mg tablet 500 mg PO DAILY 90 Days tab 03/15/19 02/19/20 History insulin glargine 100 unit/mL (3 15 unit SQ DAILY ml 05/31/19 02/19/20 History mL) subcutaneous pen oxybutynin chloride 5 mg tablet 5 mg PO BID 01/25/20 02/19/20 History Amoxicillin/Potassium Clav 1 tab PO Q12H 9 Days #18 tab 02/20/20 Rx [Augmentin 875-125 Tablet] Donepezil HCl [Aricept 10mg 10 mg PO HS 02/20/20 02/20/20 History tablet] Losartan Potassium [Cozaar 100mg 50 mg PO DAILY 30 Days #15 tab 02/20/20 Rx Tablets] Prescriptions/Medication Reconciliation: New Amoxicillin/Potassium Clav [Augmentin 875-125 Tablet] 1 tab PO Q12H 9 Days #18 tab Losartan Potassium [Cozaar 100mg Tablets] 50 mg PO DAILY 30 Days #15 tab Continued aspirin 81 mg tablet,delayed release 81 mg PO DAILY finasteride 5 mg tablet 5 mg PO ONCE metformin 1,000 mg tablet 500 mg PO DAILY 90 Days tab insulin glargine 100 unit/mL (3 mL) subcutaneous pen 15 unit SQ DAILY ml oxybutynin chloride 5 mg tablet 5 mg PO BID Donepezil HCl [Aricept 10mg tablet] 10 mg PO HS Discontinued nitroglycerin 0.4 mg sublingual tablet 0.4 mg SUBLINGUAL Q5M PRN PRN Reason: Chest Pain Citalopram Hydrobromide [Celexa 40mg Tablet] 20 mg PO DAILY - Problem Reconciliation Problems Reviewed?: Yes
--- NOTE | 2020-02-21 16:12 | Electrocardiograph Report ---
APPROVED REPORT Exam: Resting ECG HR:100 bpm ECG Measurements Heart Rate 100 AXES UT 152 P 45 QRSd 128 QRS 27 QT 384 T14 QTc 495 <Conclusion> Normal sinus rhythm Left bundle branch block Abnormal ECG Electronically signed by : Martínez Castellon, 02/21/2020 16:12:13
== END 2020-02-20 15:00 | disposition home or self-care (01) ==
LOC: ER 21:14 → 2ND 21:14
PROVIDERS: ADMIT Internal Medicine Adolescent Medicine; ATTEND Internal Medicine Adolescent Medicine
CPT/HCPCS: 36415; 70450; 71010; 71045; 80048; 81001; 82962; 83605; 84484; 84550; 85007; 85025; 85610; 85651; 85730; 86140; 87040; 87275; 87276; 93005; 96365; 96367; 96375; 99285; G0378

== ENCOUNTER → 2020-02-25 09:55 | Outpatient (CLI) | payer MEDICARE, SELFPAY ==
--- NOTE | 2020-02-25 10:01 | XR_ITS ---
PROCEDURE: XR WRIST RT MIN 3V CLINICAL INDICATION: RT WRIST PAIN COMPARISON: No exams were available for comparison FINDINGS: Osteoarthritic changes are present involving the scapho trapezium joint and 1st metacarpal-carpal joint. No other significant anomalies are evident. 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
[2020-02-25 11:06] LABS: Erythrocyte Sedimentation Rate 112 mm/hr (0-20)
[2020-02-25 15:09] LABS: C-Reactive Protein 62.2 mg/L (0-4)
== END ==
PROVIDERS: PCP Internal Medicine Adolescent Medicine; Visit Provider Internal Medicine Adolescent Medicine
DX: M25.531 Pain in right wrist (principal)
CPT/HCPCS: 36415; 73110; 85651; 86140

== ENCOUNTER → 2020-05-11 12:08 | Outpatient (CLI) | payer MEDICARE, SELFPAY ==
[2020-05-11 14:04] LABS: Prostate Specific Ag, Diagnost 0.188 ng/ml (0.0-4.0)
== END ==
PROVIDERS: Visit Provider Urology
DX: C61 Malignant neoplasm of prostate (principal)
CPT/HCPCS: 36415; 84153

== ENCOUNTER → 2020-05-29 15:36 | Outpatient (CLI) | payer MEDICARE, SELFPAY ==
[2020-05-29 16:11] LABS: Basophils # 0.1 K/mm3 (0-0.2); Basophils % 0.9 % (0.1-2.0); Eosinophils # 0.2 K/mm3 (0.0-0.4); Eosinophils % 2.4 % (0.1-12.0); Hematocrit 34.5 % (42.0-52.0); Hemoglobin 11.8 g/dL (14.1-18.0); Lymphocytes % 31.5 % (10-50); Mean Corpuscular HGB Conc 34.3 g/dL (31.8-35.4); Mean Corpuscular Volume 87.4 fl (80-94); Mean Platelet Volume 7.5 fl (7.4-10.4); Monocytes # 0.4 K/mm3 (0.1-1.0); Monocytes % 3.8 % (1.7-9.3); Neutrophils # 5.8 K/mm3 (1.8-7.8); Neutrophils % 61.4 % (37.0-80.0); Platelet Count 311 K/mm3 (142-424); Red Blood Count 3.95 M/mm3 (4.60-6.20); Red Cell Distribution Width 15.1 % (11.5-17.5); White Blood Count 9.4 K/mm3 (4.8-10.8)
[2020-05-29 16:33] LABS: Hemoglobin A1C 7.4 % (4.0-6.0)
[2020-05-29 19:00] LABS: Chloride 101 mmol/L (98-107)
[2020-05-29 19:01] LABS: Sodium 133 mmol/L (136-145)
[2020-05-29 19:03] LABS: Alanine Aminotransferase 14 U/L (12-78); Aspartate Amino Transferase 17 U/L (17-59); Blood Urea Nitrogen 22 mg/dl (9-20); Estimated Glomerular Filt Rate 39 ml/min (>60); GFR (African American) 47 ML/MIN (>60); Potassium 4.9 mmoL/L (3.5-5.1)
[2020-05-29 19:04] LABS: Albumin Level 3.1 g/dl (3.5-5.0); Alkaline Phosphatase 96 U/L (38-126); Anion Gap 10.9 mEq/L (5-15); Bilirubin,Total 0.4 mg/dl (0.2-1.3); Calcium 8.8 mg/dl (8.4-10.2); Carbon Dioxide 26 mmol/L (22.0-30.0); Glucose 222 mg/dl (74-100); Total Protein,Serum 6.1 g/dl (6.3-8.2)
[2020-05-29 20:03] LABS: Erythrocyte Sedimentation Rate 63 mm/hr (0-20)
== END ==
PROVIDERS: Visit Provider Internal Medicine Adolescent Medicine
DX: I10 Essential (primary) hypertension (principal); M25.531 Pain in right wrist; E11.9 Type 2 diabetes mellitus without complications; Z79.4 Long term (current) use of insulin
CPT/HCPCS: 36415; 80053; 83036; 85025; 85651; 86140

== ENCOUNTER → 2020-05-30 08:52 | Outpatient (CLI) | payer MEDICARE, SELFPAY ==
--- NOTE | 2020-05-30 08:58 | CT_ITS ---
PROCEDURE: CT ABDOMEN PELVIS W CON CLINICAL INDICATION: Follow-up colon cancer COMPARISON: [facility] abdomen pelvis wo con from 08/05/2018 TECHNIQUE: IV Contrast: 75ML OPTIRAY 350 Oral Contrast 450ml Redicat Axial images obtained with sagittal and coronal reformats. All CT scans at the facility use one or more dose reduction, viz: automated exposure control, ma/kV adjustment per patient size (including targeted exams where dose is matched to indication, i.e. head), or iterative reconstruction technique. FINDINGS: LOWER THORAX: No acute finding ABDOMEN & PELVIS: There are multiple gallstones present. No focal liver lesion evident. The spleen, adrenal glands, have an unremarkable appearance. There is pancreatic atrophy without obvious pancreatic mass. There is mild prominence of the right renal pelvis. There is moderate left hydronephrosis and hydroureter secondary to a 19 by 10 mm stone in the mid left ureter at the L3 level. No intestinal obstruction or free air. No evidence of appendicitis or diverticulitis. There are prostate seed implants present. No pelvic or abdominal mass adenopathy or abnormal fluid collection. There is colonic diverticulosis without evidence of diverticulitis. There is an old pubic bone fracture medially. Intramedullary kaden is present in the left femur. There is a small left inguinal hernia containing fat IMPRESSION: 1. No evidence of metastatic disease. 2. 19 x 10 mm left mid ureteral stone with moderate left hydroureteronephrosis 3. Cholelithiasis Dictated by: Taye Gould MD 05/31/2020 11:14 Electronically signed by Taye Gould MD in [place] 05/31/2020 11:14
--- NOTE | 2020-05-30 08:58 | CT_ITS ---
PROCEDURE: CT CHEST W CON CLINCAL INDICATION: COLON CANCER Follow-up colon cancer COMPARISON: [facility] CT abdomen pelvis wo con from 08/05/2018 CT ABDOMEN PELVIS W CON from 05/30/2020 TECHNIQUE: IV Contrast: 75ml Optiray 350 Axial images obtained with sagittal and coronal reformats. All CT scans at the facility use one or more dose reduction, viz: automated exposure control, ma/kV adjustment per patient size (including targeted exams where dose is matched to indication, i.e. head), or iterative reconstruction technique. FINDINGS: HEART AND MEDIASTINAL STRUCTURES: There are few scattered small mediastinal lymph nodes. No dominant adenopathy. No mediastinal or. There is extensive coronary artery calcification and/or stents noted. There is some eccentric atherosclerotic plaque within the aortic arch inferiorly and on the left LUNGS AND PLEURAL SPACES: Atelectatic or fibrotic changes are present in the lung bases. There is a 3 mm nodule in the right upper lobe anteriorly image 37 and a 5 mm nodule right middle lobe centrally image 45. These nodules may been present on the previous abdomen CT of 08/05/2018 probably benign. No lobar consolidation or collapse BONY STRUCTURES: No acute bony abnormalities apparent. UPPER ABDOMEN: Please see abdomen report ADDITIONAL FINDINGS: Mild gynecomastia IMPRESSION: No convincing evidence of metastatic disease Dictated by: Taye Gould MD 05/31/2020 11:09 Electronically signed by Taye Gould MD in [place] 05/31/2020 11:09
== END ==
PROVIDERS: PCP Internal Medicine Adolescent Medicine; Visit Provider Surgery
DX: C18.9 Malignant neoplasm of colon, unspecified (principal)
CPT/HCPCS: 71260; 74177; Q9967

== ENCOUNTER → 2020-06-08 09:41 | Outpatient (CLI) | payer MEDICARE, SELFPAY ==
[2020-06-08 10:25] LABS: Basophils # 0.1 K/mm3 (0-0.2); Basophils % 0.8 % (0.1-2.0); Eosinophils # 0.3 K/mm3 (0.0-0.4); Eosinophils % 2.3 % (0.1-12.0); Hematocrit 39.8 % (42.0-52.0); Hemoglobin 13.3 g/dL (14.1-18.0); Lymphocytes # 2.1 K/mm3 (0.7-4.5); Lymphocytes % 16.2 % (10-50); Mean Corpuscular HGB Conc 33.6 g/dL (31.8-35.4); Mean Corpuscular Hemoglobin 30.5 pg (27.0-31.2); Mean Platelet Volume 7.5 fl (7.4-10.4); Monocytes # 0.5 K/mm3 (0.1-1.0); Monocytes % 3.8 % (1.7-9.3); Neutrophils # 9.9 K/mm3 (1.8-7.8); Neutrophils % 76.9 % (37.0-80.0); Platelet Count 283 K/mm3 (142-424); Red Blood Count 4.37 M/mm3 (4.60-6.20); Red Cell Distribution Width 15.1 % (11.5-17.5); White Blood Count 12.9 K/mm3 (4.8-10.8)
[2020-06-08 11:09] LABS: Chloride 101 mmol/L (98-107); Potassium 4.9 mmoL/L (3.5-5.1); Sodium 135 mmol/L (136-145)
[2020-06-08 11:12] LABS: Anion Gap 11.9 mEq/L (5-15); Blood Urea Nitrogen 30 mg/dl (9-20); Carbon Dioxide 27 mmol/L (22.0-30.0); Estimated Glomerular Filt Rate 34 ml/min (>60); GFR (African American) 42 ML/MIN (>60); Glucose 282 mg/dl (74-100)
[2020-06-08 13:20] LABS: Coronavirus 19 IgG Antibody Positive (Negative); Coronavirus 19 IgM Antibody Negative (Negative)
== END ==
PROVIDERS: Visit Provider Urology
DX: Z01.818 Encounter for other preprocedural examination (principal); N20.0 Calculus of kidney
CPT/HCPCS: 36415; 80048; 85025; 86328

== ENCOUNTER 2020-06-09 08:49 | Day surgery (SDC) | payer MEDICARE, SELFPAY ==
[2020-06-08 11:20] VITALS: BMI 28.0
[2020-06-09] VITALS (11 sets, daily range): BP systolic 144–164; BP diastolic 50–99; PULSE 75–88; RESP 12–19; TEMP 36.3–43; O2SAT 96–99
--- NOTE | 2020-06-09 12:17 | HMH.ANESCL ---
[facility] Anesthesia Checklist - Structural Data Admitted From: Home Planned Operative Procedure/s: eswl Consent for Planned Operative Procedure(s) Verified: Yes - Additional verifications Anesthesia Reactions: No Hx Blood Transfusions: No Blood Transfusion Reaction: No - Airway Assessment C-Spine Mobility Assessed: Yes TMJ Mobility Assessed: Yes Dentition: Good Dentition - Neurological Assessment Level of Consciousness: Awake, Alert, Appropriate - Anesthesia Plan Anesthesia Risk discussed: Yes Anesthesia Plan: Verified ASA Class: III Anesthesia Type: General [facility] History I have reviewed the patient's past medical history: Yes Medical History: Reports:: Cancer (prostate, colon), Congestive Heart Failure, Coronary Artery Disease, Depression, Diabetes Mellitus Type 2, Gastroesophageal Reflux Disease(GERD), Myocardial Infarction Denies:: Diabetes Mellitus Type 1, Hyperlipidemia, Hypertension, Internal Pacemaker, Lung Disease, MRSA, Seizures *Have you ever received a pneumonia vaccine?: Yes *Have you received a flu vaccine this season?: Yes Other Medical History: Reports: Anemia. Denies: Blood Transfusion Reaction Anesthesia experience/problems:: none Other Surgeries: Yes: No Previous Surgery, Appendectomy, Cancer Surgery, Colonoscopy, Coronary Stent, Other. No: Pacemaker Amputation: No Fractures: No - *Social History Last grade of school completed: 9th or 10th Smoking Status: Never smoker Tobacco Type: cigarettes Alcohol Intake: never Alcohol Intake Frequency:: other Substance Use Type: denies use *Occupational Status:: retired Housing: house Household Members: spouse *Travel in the last 8 weeks: None - Psychiatric History Pschychiatric History:: Reports:: Depression Family Hx:: Coronary Artery Disease, Diabetes, Heart Attack
[2020-06-09 12:35] LABS: POC Glucose,Bedside 160 (70-110)
--- NOTE | 2020-06-09 13:45 | SUR.OPER ---
Cystoscopy and left ureteral stent placement procedure ended at 1130, pt repositioned for ESWL and start time for ESWL was at 1133, counts correct and verified prior to start of ESWL, surgeon notified
--- NOTE | 2020-06-09 13:58 | HMH.OPNOTE ---
Date of procedure: 06/09/20 Pre-op Diagnosis:: 19 x 10 mm left proximal ureteral stone Post-op Diagnosis:: Same Procedure performed:: Cystoscopy with left stent placement and left ESWL Surgeon:: Monroe Miranda MD [employer]INTAINER:: Oscar Haynes Anesthesia: GETA Estimated blood loss (mL): 0 Clinical Note:: 79-year-old white male with incidentally noted 19 x 10 mm proximal left ureteral stone on recent CT scan. Patient is asymptomatic and denies any nausea vomiting fevers chills or hematuria. He is pleasantly demented. Operative findings:: Stent was able to bypass the proximal left ureteral stone and 4000 shockwaves delivered to the stone. Operative note:: Patient taken to the operating room after informed consent was obtained. Placed on the operating table in the supine position. General anesthesia administered. IV antibiotics and sequential compression devices placed. He was then placed into the dorsal lithotomy position prepped draped in the standard surgical fashion. 22 Omar passed into the urethra and into the bladder without difficulty. Bladder was examined in a systematic fashion and there is no evidence of abnormalities. The left ureteral orifice was cannulated with a 5 Panamanian ureteral catheter and passed up to the level of the proximal stone. Was attempted to be manipulated back into the renal pelvis but it was too large and would not budge. We were able to pass a wire by the stone and a 6 x 24 Panamanian stent was passed over the wire and the wire removed. A good curl was noted proximally and distally. Patient then positioned to the supine position and after the lithotripter was focused onto the ureteral stone. Started at the distal end of the stone and worked her way back proximally. Total of 4000 shockwaves at a maximum KV of 9 were delivered. Patient tolerated procedure well there are no complications. Of note when the stent was placed there is no evidence of any purulent debris present. Patient discharged to recovery in stable condition. He was discharged home with routine instructions and medications. Condition: stable Disposition: PACU Specimens:: None Complications:: None
== END 2020-06-09 13:27 | disposition home or self-care (01) ==
PROVIDERS: PCP Internal Medicine Adolescent Medicine; Visit Provider Urology
PROC: (CPT 50590; principal; 2020-06-09 10:30)
DX: N20.1 Calculus of ureter (principal); Z85.46 Personal history of malignant neoplasm of prostate; Z79.82 Long term (current) use of aspirin; Z79.84 Long term (current) use of oral hypoglycemic drugs; Z79.4 Long term (current) use of insulin; Z79.899 Other long term (current) drug therapy; Z86.73 Personal history of transient ischemic attack (TIA), and cerebral infarction without residual deficits; F03.90 Unspecified dementia, unspecified severity, without behavioral disturbance, psychotic disturbance, mood disturbance, and anxiety; Z85.038 Personal history of other malignant neoplasm of large intestine; Z90.49 Acquired absence of other specified parts of digestive tract; E11.9 Type 2 diabetes mellitus without complications; I25.2 Old myocardial infarction
CPT/HCPCS: 50590; 52000; 82962; 96374; C2617; J2405

== ENCOUNTER → 2020-06-19 13:56 | Outpatient (CLI) | payer MEDICARE, SELFPAY ==
--- NOTE | 2020-06-19 14:03 | XR_ITS ---
PROCEDURE: XR KUB CLINICAL INDICATION: ureteral stone COMPARISON: CT ABDOMEN PELVIS W CON from 05/30/2020 FINDINGS: There is a left ureteral stent in place with the proximal aspect of the stent overlying the region of the renal pelvis and the distal aspect overlying the urinary bladder. A 2 cm stone is in the proximal right ureter at the L3 level. Scattered areas of calcification are present along the proximal ureter and 1 at the distal ureter which could be due to ureteral stone fragments also with small fragments overlying the lower pole of the left kidney. IMPRESSION: Ureteral stent in place with left ureteral calculi Dictated by: Taye Gould MD 06/19/2020 15:49 Electronically signed by Taye Gould MD in [place] 06/19/2020 15:49
== END ==
PROVIDERS: PCP Internal Medicine Adolescent Medicine; Visit Provider Urology
DX: N20.1 Calculus of ureter (principal)
CPT/HCPCS: 74018

== ENCOUNTER → 2020-07-03 12:12 | Outpatient (CLI) | payer MEDICARE, SELFPAY ==
--- NOTE | 2020-07-03 12:17 | XR_ITS ---
PROCEDURE: XR KUB CLINICAL INDICATION: kidney stone COMPARISON: CT ABDOMEN PELVIS W CON from 05/30/2020 XR KUB from 06/19/2020 FINDINGS: AP and oblique views are obtained of the abdomen. There is left ureteral stent in place. Along the proximal aspect of the stent there is a large stone measuring 2.3 by 0.9 cm. This stone is lateral to the stent. There is a calcific density measuring 5 mm medial to the distal aspect of the stent which is probably related to a vascular calcification. IMPRESSION: Left ureteral stent in place with 2.3 cm ureteral stone lateral to the stent at the L3 level Dictated by: Taye Gould MD 07/03/2020 13:26 Electronically signed by Taye Gould MD in [place] 07/03/2020 13:26
== END ==
PROVIDERS: PCP Internal Medicine Adolescent Medicine; Visit Provider Urology
DX: N20.0 Calculus of kidney (principal)
CPT/HCPCS: 74018

== ENCOUNTER → 2020-07-06 11:05 | Outpatient (CLI) | payer MEDICARE, SELFPAY ==
[2020-07-06 13:47] LABS: Coronavirus 19 IgM Antibody Negative (Negative)
[2020-07-06 13:49] LABS: Coronavirus 19 IgG Antibody Positive (Negative)
== END ==
PROVIDERS: Visit Provider Urology
DX: Z01.818 Encounter for other preprocedural examination (principal); Z20.828 Contact with and (suspected) exposure to other viral communicable diseases
CPT/HCPCS: 86328

== ENCOUNTER 2020-07-07 08:02 | Day surgery (SDC) | payer MEDICARE, SELFPAY ==
[2020-07-05 13:41] VITALS: BMI 28.1
[2020-07-07] VITALS (11 sets, daily range): BP systolic 144–191; BP diastolic 77–97; PULSE 77–93; RESP 15–18; TEMP 36.1–36.5; O2SAT 94–100
[2020-07-07 08:39] LABS: POC Glucose,Bedside 85 (70-110)
[2020-07-07 08:46] LABS: Basophils # 0.1 K/mm3 (0-0.2); Basophils % 0.7 % (0.1-2.0); Eosinophils # 0.4 K/mm3 (0.0-0.4); Hematocrit 39.1 % (42.0-52.0); Hemoglobin 13.2 g/dL (14.1-18.0); Lymphocytes # 2.7 K/mm3 (0.7-4.5); Lymphocytes % 28.9 % (10-50); Mean Corpuscular HGB Conc 33.7 g/dL (31.8-35.4); Mean Corpuscular Hemoglobin 29.8 pg (27.0-31.2); Mean Corpuscular Volume 88.5 fl (80-94); Mean Platelet Volume 7.4 fl (7.4-10.4); Monocytes # 0.5 K/mm3 (0.1-1.0); Monocytes % 5.1 % (1.7-9.3); Neutrophils # 5.8 K/mm3 (1.8-7.8); Neutrophils % 61.3 % (37.0-80.0); Platelet Count 244 K/mm3 (142-424); Red Blood Count 4.42 M/mm3 (4.60-6.20); White Blood Count 9.5 K/mm3 (4.8-10.8)
[2020-07-07 08:49] LABS: Chloride 103 mmol/L (98-107); Potassium 4.1 mmoL/L (3.5-5.1)
[2020-07-07 08:50] LABS: Sodium 139 mmol/L (136-145)
[2020-07-07 08:52] LABS: Blood Urea Nitrogen 24 mg/dl (9-20); Creatinine Clearance Estimated 36 mL/min (50-200); Estimated Glomerular Filt Rate 34 ml/min (>60); GFR (African American) 42 ML/MIN (>60)
[2020-07-07 08:53] LABS: Anion Gap 11.1 mEq/L (5-15); Calcium 9.3 mg/dl (8.4-10.2); Carbon Dioxide 29 mmol/L (22.0-30.0); Glucose 91 mg/dl (74-100)
--- NOTE | 2020-07-07 08:54 | P.PN_ITS ---
[facility] Anesthesia Checklist - Patient Identification Patient Identification: Arm Band - Structural Data Admitted From: Home Planned Operative Procedure/s: left ureteroscopy with laser of stone, stone extraction, stent change Consent for Planned Operative Procedure(s) Verified: Yes Verified Documents: Surgical Consent, History and Physical - NPO Status Verified Time NPO: 00:00 - Additional verifications Anesthesia Reactions: No Hx Blood Transfusions: No Blood Transfusion Reaction: No - Airway Assessment C-Spine Mobility Assessed: Yes (mp2) TMJ Mobility Assessed: Yes Dentition: Poor Dentition - Neurological Assessment Level of Consciousness: Awake, Alert - Anesthesia Plan Anesthesia Risk discussed: Yes Anesthesia Plan: Verified ASA Class: III Anesthesia Type: General [facility] History I have reviewed the patient's past medical history: Yes Medical History: Reports:: Cancer (prostate, colon), Congestive Heart Failure, Coronary Artery Disease, Depression, Diabetes Mellitus Type 2, Gastroesophageal Reflux Disease(GERD), Kidney Stones, Myocardial Infarction Denies:: Diabetes Mellitus Type 1, Hyperlipidemia, Hypertension, Internal Pacemaker, Lung Disease, MRSA, Seizures *Have you ever received a pneumonia vaccine?: Yes *Have you received a flu vaccine this season?: Yes Other Medical History: Reports: Anemia, Arthritis. Denies: Blood Transfusion Reaction Anesthesia experience/problems:: nac Other Surgeries: Yes: Appendectomy, Cancer Surgery, Colonoscopy, Coronary Stent, Other. No: Pacemaker Amputation: No Fractures: Yes - *Social History Last grade of school completed: 9th or 10th Smoking Status: Never smoker Tobacco Type: cigarettes Alcohol Intake: never Alcohol Intake Frequency:: other Substance Use Type: denies use *Occupational Status:: retired Housing: house Household Members: spouse *Travel in the last 8 weeks: None - Psychiatric History Pschychiatric History:: Reports:: Depression Family Hx:: Coronary Artery Disease, Diabetes, Heart Attack
--- NOTE | 2020-07-07 11:23 | HMH.ANESI ---
[facility] Anesthesia Record Part I Intake, IV Amount: 1,000 Estimated blood loss (mL): 0 Urine output (mL): 0 Blood Pressure: 144/77 SaO2: 94 Pulse Rate: 93 Respiratory Rate: 16 Temperature: 97.7 F Patient is:: Drowsy, Stable Stable to PACU at:: 11:20
--- NOTE | 2020-07-07 12:10 | HMH.OPNOTE ---
Date of procedure: 07/07/20 Pre-op Diagnosis:: 2 cm proximal left ureteral stone Post-op Diagnosis:: Same Procedure performed:: Left ureteroscopy, laser lithotripsy, stone extraction, stent removal and stent replacement Surgeon:: Monroe Miranda MD ONCOLOGY PHYSICIAN:: Huber Vasquez Anesthesia: GETA Estimated blood loss (mL): 0 Clinical Note:: 79-year-old white male with a large asymptomatic left ureteral stone. He has undergone previous left ESWL that shows fragmentation of the stone but no significant stone passage. Operative findings:: Left ureteroscopy showed a bleeding stone fragment that was likely preventing some fragmented stones behind it from passing. Operative note:: Patient taken to the operating room after informed consent was obtained. Placed on the operating table in the supine position and general anesthesia administered. Preoperative antibiotics and sequential compression devices placed. Was then placed into the dorsal lithotomy position and prepped and draped in the standard surgical fashion. A 22 Serbian scope was passed into the urethra and into the bladder without difficulty. The bladder was examined in a systematic fashion. There were no abnormalities other than the stent noted from the left ureteral orifice. Stent was grasped and pulled out to the urethral meatus. Scope removed and a 0.035 guidewire was passed through the lumen of the ureteral stent and under fluoroscopy passed into the left renal pelvis without difficulty. The stent was then removed and our semirigid ureteroscope was passed into the urethral meatus and into the bladder without difficulty. Was passed into the left ureteral orifice and up to the level of the stone. R2 100 nm laser fiber was passed through the ureteroscope and the leading edge of the stone fragment was fragmented. We were then able to see behind the larger stone fragment and there did appear to be fragmentation of the stone from the previous ESWL. We proceeded to fragment stone even more so with the laser set that 1.0 x 10. After all significant stone fragments were broken I was able to pass ureteroscope passed all stones. A couple of passes were made to remove some stone debris but due to the proximal nature of the stone I did not feel comfortable passing the ureteroscope too often. I believe the stone fragments were small enough to pass the ureteroscope removed and our cystoscope was replaced and the wire backloaded over the scope and a 6 x 24 Serbian ureteral stent was passed over the guidewire and into the renal pelvis without difficulty. The string and wire removed. A good curl was noted proximally and distally. The bladder drained scope removed. Urojet was placed into the urethra. Patient tolerated procedure well discharged to recovery in stable condition. Condition: stable Disposition: PACU Specimens:: None Complications:: None
--- NOTE | 2020-07-07 13:21 | XR_ITS ---
PROCEDURE: XR KUB CLINICAL INDICATION: STENT PLACEMENT ON THE LT SIDE COMPARISON: CT CT ABDOMEN PELVIS W CON from 05/30/2020 FINDINGS: Fluoroscopy time: 1 minutes and 35 seconds At left-sided ureteral stent was placed under fluoro. Images submitted are limited showing a left ureteral stent in place with the proximal aspect curled in the left upper quadrant and distal aspect in the left aspect of the your pelvis. Calcific density is present along the medial and distal aspect of the stent and may be due to residual ureteral stone. IMPRESSION: Status post stent placement on the left Dictated b Taye Gould MD 07/07/2020 15:49 Taye Gould MD in [place] 07/07/2020 15:49
--- NOTE | 2020-07-07 13:36 | HMH.ANESII ---
[facility] Anesthesia Record Part II Discharge Time: 11:50 Destination: Surgical Day Care (OP Surgery) PACU nurse assessment reviewed?: Yes Patient Condition:: Good Anesthesia Complications:: None Swallowing reflex intact?: Yes Cyanosis?: No Blood Pressure: 168/94 Pulse Rate: 83 Temperature: 97.6 F Mental Status: Alert & Oriented Pain level:: 0 Nausea and/or vomitting:: None Intake, IV Amount: 0
[2020-07-28 18:58] LABS: Composition SEE BELOW:; Size 3X2 mm; Specimen Type NOT PROVIDED
[2020-07-28 18:59] LABS: Photo TO FOLLOW
== END 2020-07-07 12:30 | disposition home or self-care (01) ==
LOC: OR 08:04
PROVIDERS: PCP Internal Medicine Adolescent Medicine; Visit Provider Urology
PROC: 0TJ98ZZ Inspection of Ureter, Via Natural or Artificial Opening Endoscopic (ICD-10-PCS; CPT 52351; principal; 2020-07-07 09:30)
DX: N20.1 Calculus of ureter (principal); Z87.442 Personal history of urinary calculi; E11.9 Type 2 diabetes mellitus without complications; I50.9 Heart failure, unspecified; I25.10 Atherosclerotic heart disease of native coronary artery without angina pectoris; F32.9 Major depressive disorder, single episode, unspecified; K21.9 Gastro-esophageal reflux disease without esophagitis; I25.2 Old myocardial infarction; Z85.46 Personal history of malignant neoplasm of prostate; D64.9 Anemia, unspecified; M19.90 Unspecified osteoarthritis, unspecified site; Z90.49 Acquired absence of other specified parts of digestive tract
CPT/HCPCS: 50590; 74018; 76000; 80048; 82370; 82962; 85025; 96374; C2617; J2405

== ENCOUNTER → 2020-07-14 12:37 | Outpatient (CLI) | payer MEDICARE, SELFPAY ==
--- NOTE | 2020-07-14 12:45 | XR_ITS ---
PROCEDURE: XR KUB CLINICAL INDICATION: ureteral stone COMPARISON: CT CT ABDOMEN PELVIS W CON from 05/30/2020 FINDINGS: Gas pattern-The bowel gas pattern is unremarkable. No obvious obstruction. Calcifications-, the calculus seen proximal left ureter on the CT scan 05/30/2020 is not seen but there appear to be some faint fragments at the level of the interspace between the transverse process of L 2 and L3 on the left side presumably secondary to interval lithotripsy. No other definite calculi are seen along the course of the ureteral stent. The stent is in satisfactory position extending from the left renal pelvis to the bladder floor. IMPRESSION: Possible small bone fragments remaining at the site of the previous large proximal ureteral calculus. Dictated by: Dr. Grzegorz Valenzuela MD 07/14/2020 13:47 Dr. Grzegorz Valenzuela MD in [place] 07/14/2020 13:47
== END ==
PROVIDERS: PCP Internal Medicine Adolescent Medicine; Visit Provider Urology
DX: N20.1 Calculus of ureter (principal)
CPT/HCPCS: 74018

== ENCOUNTER → 2020-07-14 14:42 | Outpatient (CLI) | payer MEDICARE, SELFPAY ==
[2020-07-14 15:49] LABS: Coronavirus 19 IgG Antibody Positive (Negative); Coronavirus 19 IgM Antibody Negative (Negative)
== END ==
PROVIDERS: Visit Provider Urology
DX: Z01.818 Encounter for other preprocedural examination (principal); N20.1 Calculus of ureter
CPT/HCPCS: 36415; 74018; 86328

== ENCOUNTER 2020-07-17 09:06 | Day surgery (SDC) | payer MEDICARE, SELFPAY ==
[2020-07-17 09:27] VITALS: BP 198/91; PULSE 85; RESP 18; TEMP 36.3; O2SAT 100; BMI 28.0
[2020-07-17 09:34] LABS: POC Glucose,Bedside 169 (70-110)
[2020-07-17 10:30] VITALS: BP 161/87; PULSE 95; RESP 18; TEMP 36.2; O2SAT 99
--- NOTE | 2020-07-17 11:16 | HMH.OPNOTE ---
Date of procedure: 07/17/20 Pre-op Diagnosis:: Left ureteral stent secondary to left ureteral calculi Post-op Diagnosis:: Same Procedure performed:: Cystoscopy with left stent removal Surgeon:: Monroe Miranda MD Anesthesia: local Estimated blood loss (mL): 0 Clinical Note:: 79-year-old white male with dementia presents for left stent removal after previous procedures to treat a large left proximal ureteral stone. Operative findings:: Stent noted in the bladder and removed without difficulty. Operative note:: Patient taken to the treatment room after informed consent was obtained. On the stretcher he was prepped and draped in the standard surgical fashion and 2% lidocaine placed into the urethra and clamped for 5 minutes. Clamp and removed and the flexible cystoscope passed into the urethra meatus and into the bladder without difficulty. Stent was noted from the left ureteral orifice and flexible graspers were passed through the scope and the stent grasped and removed without difficulty. Patient tolerated procedure well there are no complications. Condition: stable Disposition: same day Specimens:: Ureteral stent Complications:: None
== END 2020-07-17 10:35 | disposition home or self-care (01) ==
LOC: OUTP 09:07
PROVIDERS: PCP Internal Medicine Adolescent Medicine; Visit Provider Urology
PROC: (CPT 52310; principal; 2020-07-17 10:00)
DX: N20.1 Calculus of ureter (principal); Z96.0 Presence of urogenital implants; Z85.46 Personal history of malignant neoplasm of prostate; I25.10 Atherosclerotic heart disease of native coronary artery without angina pectoris; E11.9 Type 2 diabetes mellitus without complications; F03.90 Unspecified dementia, unspecified severity, without behavioral disturbance, psychotic disturbance, mood disturbance, and anxiety; M19.90 Unspecified osteoarthritis, unspecified site; Z88.8 Allergy status to other drugs, medicaments and biological substances; Z79.82 Long term (current) use of aspirin; Z79.84 Long term (current) use of oral hypoglycemic drugs; Z79.4 Long term (current) use of insulin; Z79.899 Other long term (current) drug therapy
CPT/HCPCS: 52310; 82962

== ENCOUNTER → 2020-09-04 10:49 | Outpatient (CLI) | payer MEDICARE, SELFPAY ==
[2020-09-04 14:11] LABS: Hemoglobin A1C 7.1 % (4.0-6.0)
== END ==
PROVIDERS: Visit Provider Internal Medicine Adolescent Medicine
DX: E11.9 Type 2 diabetes mellitus without complications (principal); Z79.4 Long term (current) use of insulin
CPT/HCPCS: 36415; 83036

== ENCOUNTER → 2020-12-22 14:29 | Outpatient (CLI) | payer MEDICARE, SELFPAY ==
--- NOTE | 2020-12-22 14:36 | XR_ITS ---
PROCEDURE: XR KUB CLINICAL INDICATION: kidney stone COMPARISON: CT CT ABDOMEN PELVIS W CON from 05/30/2020 FINDINGS: There are at least 2 calculi along the lower pole of the left kidney measuring to 6 mm. There is also calcification in the left paraspinal region at the L2 area measuring 7 mm which may represent stone within the left ureter. There may be an additional linear calcific density at 11 mm inferior to the left L3 transverse process. Suture lines are present in the left upper quadrant. Prostate seed implants are noted in there is a small intramedullary kaden in the left femur which extends superior to the femoral neck. IMPRESSION: Left renal and suspected left ureteral calculi as described above. CT may confirm Dictated by: Taye Gould MD 12/22/2020 15:33 Taye Gould MD in [place] 12/22/2020 15:33
== END ==
PROVIDERS: PCP Internal Medicine Adolescent Medicine; Visit Provider Urology
DX: N20.0 Calculus of kidney (principal)
CPT/HCPCS: 74018

== ENCOUNTER → 2020-12-28 13:34 | Outpatient (CLI) | payer MEDICARE, SELFPAY ==
--- NOTE | 2020-12-28 13:34 | CT_ITS ---
PROCEDURE: CT ABDOMEN PELVIS WO CON CLINICAL INDICATION: kidney stone Left flank pain/kidney stone Hx of colon and prostate cancer COMPARISON: CT CT ABDOMEN PELVIS W CON from 05/30/2020 TECHNIQUE: Axial images obtained with sagittal and coronal reformats. All CT scans at the facility use one or more dose reduction, viz: automated exposure control, ma/kV adjustment per patient size (including targeted exams where dose is matched to indication, i.e. head), or iterative reconstruction technique. FINDINGS: LOWER THORAX: Coronary artery and mitral valve annular calcifications are present. There are mild atelectatic changes in the left lower lobe. ABDOMEN & PELVIS: Multiple gallstones are noted. The liver, spleen, adrenal glands, and pancreas have an unremarkable appearance. There is stones present in the left kidney in the lower pole measuring up to 8 mm. There is moderate left-sided hydronephrosis and there is moderate dilatation of the left ureter throughout its course. Scattered small stones are present in the left ureter in the upper and mid aspect. Two stones in the mid upper ureter are present measuring 8 mm and 5 mm. A distal ureteral stone or multiple small small stones is present measuring 13 x 3 mm. This is just proximal to the ureterovesical junction. Previously there was a 19 x 10 mm stone in the mid left ureter. Has the patient had interval lithotripsy? No evidence of appendicitis. There is a suture line in the colon in the left upper quadrant. No evidence of diverticulitis. There is redundancy of the sigmoid colon with a mild amount of retained colonic feces. Prostate implants are present. The prostate is slightly prominent at 4 cm. There is a small left inguinal hernia containing fat. Intramedullary kaden is present in the left femur proximally IMPRESSION: 1. Moderate left hydronephrosis and hydroureter with multiple left renal and ureteral stones. There appears to be a cluster of stones distally just proximal to the UVJ causing the left obstructive uropathy. Has the patient had interval lithotripsy? 2. Moderate amount of retained colonic feces. 3. Cholelithiasis 4. Other nonacute findings as described above Dictated by: Taye Gould MD 12/29/2020 07:59 Taye Gould MD in [place] 12/29/2020 07:59
== END ==
PROVIDERS: PCP Internal Medicine Adolescent Medicine; Visit Provider Urology
DX: N20.0 Calculus of kidney (principal)
CPT/HCPCS: 74176

== ENCOUNTER → 2021-02-13 07:56 | Outpatient (CLI) | payer MEDICARE, MEDICAID, SELFPAY ==
[2021-02-13 14:25] LABS: Chloride 106 mmol/L (98-107); Sodium 135 mmol/L (136-145)
[2021-02-13 14:26] LABS: Potassium 4.2 mmoL/L (3.5-5.1)
[2021-02-13 14:28] LABS: Alanine Aminotransferase 24 U/L (12-78); Albumin Level 2.9 g/dl (3.5-5.0); Alkaline Phosphatase 130 U/L (38-126); Anion Gap 9.2 mEq/L (5-15); Aspartate Amino Transferase 23 U/L (17-59); Bilirubin,Total 0.4 mg/dl (0.2-1.3); Blood Urea Nitrogen 25 mg/dl (9-20); Carbon Dioxide 24 mmol/L (22.0-30.0); Estimated Glomerular Filt Rate 39 ml/min (>60); GFR (African American) 47 ML/MIN (>60); Total Protein,Serum 5.9 g/dl (6.3-8.2)
[2021-02-13 14:29] LABS: Calcium 8.6 mg/dl (8.4-10.2); Glucose 202 mg/dl (74-100)
[2021-02-13 15:00] LABS: Basophils # 0.1 K/mm3 (0-0.2); Basophils % 0.9 % (0.1-2.0); Eosinophils # 0.4 K/mm3 (0.0-0.4); Hematocrit 35.2 % (42.0-52.0); Hemoglobin 11.4 g/dL (14.1-18.0); Lymphocytes # 2.7 K/mm3 (0.7-4.5); Lymphocytes % 29.7 % (10-50); Mean Corpuscular HGB Conc 32.4 g/dL (31.8-35.4); Mean Corpuscular Hemoglobin 28.3 pg (27.0-31.2); Mean Corpuscular Volume 87.3 fl (80-94); Mean Platelet Volume 9.1 fl (7.4-10.4); Monocytes # 0.5 K/mm3 (0.1-1.0); Neutrophils # 5.5 K/mm3 (1.8-7.8); Neutrophils % 60.4 % (37.0-80.0); Platelet Count 266 K/mm3 (142-424); Red Blood Count 4.03 M/mm3 (4.60-6.20); Red Cell Distribution Width 15.4 % (11.5-17.5); White Blood Count 9.1 K/mm3 (4.8-10.8)
== END ==
PROVIDERS: Visit Provider Nurse Practitioner Family
DX: E11.9 Type 2 diabetes mellitus without complications (principal); Z79.4 Long term (current) use of insulin
CPT/HCPCS: 36415; 80053; 83036; 85025

== ENCOUNTER → 2021-04-10 08:40 | Outpatient (CLI) | payer OTHER, MEDICARE, SELFPAY ==
[2021-04-10 14:08] LABS: Basophils # 0.1 K/mm3 (0-0.2); Basophils % 0.9 % (0.1-2.0); Eosinophils # 0.4 K/mm3 (0.0-0.4); Eosinophils % 4.5 % (0.1-12.0); Hematocrit 36.8 % (42.0-52.0); Hemoglobin 11.8 g/dL (14.1-18.0); Mean Corpuscular HGB Conc 32.2 g/dL (31.8-35.4); Mean Corpuscular Hemoglobin 28.7 pg (27.0-31.2); Mean Corpuscular Volume 89.4 fl (80-94); Mean Platelet Volume 8.2 fl (7.4-10.4); Monocytes # 0.4 K/mm3 (0.1-1.0); Monocytes % 4.1 % (1.7-9.3); Neutrophils # 4.8 K/mm3 (1.8-7.8); Neutrophils % 55.5 % (37.0-80.0); Platelet Count 224 K/mm3 (142-424); Red Blood Count 4.11 M/mm3 (4.60-6.20); Red Cell Distribution Width 14.9 % (11.5-17.5); White Blood Count 8.7 K/mm3 (4.8-10.8)
[2021-04-10 14:19] LABS: Alanine Aminotransferase 15 U/L (12-78); Albumin Level 2.8 g/dl (3.5-5.0); Alkaline Phosphatase 125 U/L (38-126); Anion Gap 8.2 mEq/L (5-15); Aspartate Amino Transferase 18 U/L (17-59); Bilirubin,Total 0.3 mg/dl (0.2-1.3); Blood Urea Nitrogen 25 mg/dl (9-20); Calcium 8.5 mg/dl (8.4-10.2); Carbon Dioxide 24 mmol/L (22.0-30.0); Chloride 110 mmol/L (98-107); Estimated Glomerular Filt Rate 39 ml/min (>60); GFR (African American) 47 ML/MIN (>60); Globulin 2.7 g/dL (1.3-3.2); Glucose 139 mg/dl (74-100); Potassium 4.2 mmoL/L (3.5-5.1); Sodium 138 mmol/L (136-145); Total Protein,Serum 5.5 g/dl (6.3-8.2)
== END ==
PROVIDERS: Visit Provider Nurse Practitioner Family
DX: I10 Essential (primary) hypertension (principal); E11.65 Type 2 diabetes mellitus with hyperglycemia; I25.10 Atherosclerotic heart disease of native coronary artery without angina pectoris; Z79.4 Long term (current) use of insulin
CPT/HCPCS: 36415; 80053; 85025

== ENCOUNTER → 2021-05-11 16:14 | Outpatient (CLI) | payer OTHER, SELFPAY ==
[2021-05-11 16:27] LABS: Basophils # 0.1 K/mm3 (0-0.2); Basophils % 0.9 % (0.1-2.0); Eosinophils # 0.3 K/mm3 (0.0-0.4); Eosinophils % 2.8 % (0.1-12.0); Hematocrit 38.1 % (42.0-52.0); Hemoglobin 12.7 g/dL (14.1-18.0); Lymphocytes # 3.2 K/mm3 (0.7-4.5); Lymphocytes % 33.8 % (10-50); Mean Corpuscular HGB Conc 33.3 g/dL (31.8-35.4); Mean Corpuscular Hemoglobin 29.5 pg (27.0-31.2); Mean Corpuscular Volume 88.6 fl (80-94); Mean Platelet Volume 8.1 fl (7.4-10.4); Monocytes # 0.4 K/mm3 (0.1-1.0); Monocytes % 3.9 % (1.7-9.3); Neutrophils # 5.6 K/mm3 (1.8-7.8); Neutrophils % 58.6 % (37.0-80.0); Platelet Count 253 K/mm3 (142-424); White Blood Count 9.5 K/mm3 (4.8-10.8)
[2021-05-11 16:58] LABS: Anion Gap 10.5 mEq/L (5-15); Blood Urea Nitrogen 20 mg/dl (9-20); Calcium 8.6 mg/dl (8.4-10.2); Carbon Dioxide 25 mmol/L (22.0-30.0); Chloride 105 mmol/L (98-107); Estimated Glomerular Filt Rate 45 ml/min (>60); GFR (African American) 54 ML/MIN (>60); Glucose 224 mg/dl (74-100); Potassium 4.5 mmoL/L (3.5-5.1); Sodium 136 mmol/L (136-145)
[2021-05-11 17:29] LABS: Prostate Specific Ag, Diagnost 0.214 ng/ml (0.0-4.0)
== END ==
PROVIDERS: Visit Provider Urology
DX: R97.20 Elevated prostate specific antigen [PSA] (principal); N20.0 Calculus of kidney
CPT/HCPCS: 80048; 84153; 85025

== ENCOUNTER 2021-07-13 09:01 | Emergency (ER) | payer MEDICARE, SELFPAY ==
[2021-07-13 09:01] VITALS: BP 132/77; PULSE 105; RESP 18; TEMP 36.6; O2SAT 97; BMI 26.6
--- NOTE | 2021-07-13 09:09 | XR_ITS ---
PROCEDURE: XR CHEST PORTABLE CLINICAL HISTORY: soa COMPARISON: CR CXR1VP XR chest portable from 01/30/2019 CR XR CHEST 2V from 10/23/2019 CR XR CHEST PORTABLE from 02/19/[address] CHEST W CON from 05/30/2020 FINDINGS: Lordotic positioning. Cardiomegaly with mild pulmonary venous congestion and some interstitial edema suggesting CHF. Trace bilateral effusions. No lobar consolidation or collapse No acute bony abnormalities. IMPRESSION: CHF with trace effusions and mild interstitial edema Dictated by: Taye Gould MD 07/13/2021 10:08 Taye Gould MD in [place] 07/13/2021 10:08
--- NOTE | 2021-07-13 09:34 | HMH.EDWEAK ---
ED Disposition Clinical Impression: Community acquired pneumonia Disposition: Home, Self-Care Condition on Discharge: Good Instructions: Pneumonia-Adult Additional Instructions: Follow-up with Dr. Yeager next week as scheduled. Otherwise return to the emergency department within the next 24 hours should you have worsening difficulty breathing or any other concerns Prescriptions: Amoxicillin/Potassium Clav [Augmentin 875-125 Tablet] 1 tab PO Q12H 7 Days #14 tab Transmission Status: Pending to [facility] #[id number] Azithromycin [Z-Beny 250mg Tab*] 250 mg PO UD DOSE PK #6 tab Transmission Status: Pending to [facility] #[id number] Referrals: Phil Yeager MD [Primary Care Provider] - - Critical Care Critical Care Time: No Attestation: On 07/13/21, the high probability of a clinically significant, sudden or life threatening deterioration of the following system(s) required my full and direct attention, intervention and personal management. The time I documented below is in addition to time spent performing reported procedures but includes the following listed in this critical care notation. Medical Decision Making - Medical Records Medical records reviewed: Yes: I reviewed the patient's medical records. - Cristiano Inquiry Pt receiving controlled substance: No Vital Signs: 07/13/21 09:01 07/13/21 10:00 07/13/21 10:30 Temperature 97.9 F Temperature Source Oral Pulse Rate 89 84 Pulse Rate [Right Radial] 105 H Respiratory Rate 18 18 18 Blood Pressure 119/77 119/72 Blood Pressure [Right Arm] 132/77 Blood Pressure Mean 88 79 Blood Pressure Mean [Right Arm] 95 Blood Pressure Source [Right Arm] Automatic Cuff Blood Pressure Position [Right Arm] Sitting 02 Sat by Pulse Oximetry 97 95 96 Oxygen Delivery Method Room Air Room Air Room Air - Lab Data Lab Results 07/13/21 09:31: SARS-CoV-2 (PCR) Not detected, Influenza A Untype (PCR) Not detected, Influenza Type B (PCR) Not detected 07/13/21 09:32: WBC 15.7 H, RBC 4.54 L, Hgb 13.3 L, Hct 39.9 L, MCV 87.8, MCH 29.3, MCHC 33.4, RDW 14.8, Plt Count 290, MPV 7.8, Neut % (Auto) 85.8 H, Lymph % (Auto) 10.1, [place] % (Auto) 3.7, Eos % (Auto) 0.0 L, Baso % (Auto) 0.3, Neut # (Auto) 13.4 H, Lymph # (Auto) 1.6, [place] # (Auto) 0.6, Eos # (Auto) 0.0, Baso # (Auto) 0.1, Total Counted 100, Neutrophils % (Manual) 74, Band Neutrophils % 5.0, Lymphocytes % (Manual) 13, Monocytes % (Manual) 3, Eosinophils % (Manual) 4 H, Basophils % (Manual) 1.0, Nucleated RBCs 1, Platelet Estimate Normal 07/13/21 09:32: Sodium 137, Potassium 5.0, Chloride 104, Carbon Dioxide 24, Anion Gap 14.0, BUN 24 H, Creatinine 1.90 H, Estimated Creat Clear 34, Estimated GFR 34 L, Est GFR ( Amer) 41 L, Glucose 201 H, Calcium 8.7, Total Bilirubin 0.6, AST 56, ALT 22, Alkaline Phosphatase 138 H, Total Protein 7.1 D, Albumin 3.7, Globulin 3.4 H, Albumin/Globulin Ratio 1.1 Result diagrams: 07/13/21 09:32 07/13/21 09:32 Orders (Tests/Meds): ORDERS Category Date Time Status Lactic Acid Stat Lab 07/13/21 09:32 Ordered Urinalysis and Microscopic Stat Lab 07/13/21 09:10 Ordered Medical Decision Narrative: 80-year-old male presents with fever and cough. He is in no acute distress nontoxic-appearing vital signs are stable no evidence of sepsis on initial exam. Will be tested for COVID-19 and precautions have been taken. Laboratory and radiographic imaging obtained as well. COVID-19 test was negative. Chest x-ray shows mild pulmonary edema history of diastolic failure however oxygen saturation is normal today. He is in no acute distress on reexamination. He does have mild leukocytosis plan to treat for likely community-acquired pneumonia. His kidney function is stable. Discussed case with Dr. Yeager and he recommends follow-up with him and plan to set up with clinic appointment and otherwise given strict return precautions Weakness HPI - General Chief complaint: Weakness
[2021-07-13 09:41] LABS: Coronavirus 19, PCR Not Detected (NotDetected); Influenza A, PCR Not Detected (NotDetected); Influenza B, PCR Not Detected (NotDetected)
[2021-07-13 09:49] LABS: Basophils # 0.1 K/mm3 (0-0.2); Basophils % 0.3 % (0.1-2.0); Hematocrit 39.9 % (42.0-52.0); Hemoglobin 13.3 g/dL (14.1-18.0); Lymphocytes # 1.6 K/mm3 (0.7-4.5); Lymphocytes % 10.1 % (10-50); Mean Corpuscular HGB Conc 33.4 g/dL (31.8-35.4); Mean Corpuscular Hemoglobin 29.3 pg (27.0-31.2); Mean Corpuscular Volume 87.8 fl (80-94); Mean Platelet Volume 7.8 fl (7.4-10.4); Monocytes # 0.6 K/mm3 (0.1-1.0); Monocytes % 3.7 % (1.7-9.3); Neutrophils # 13.4 K/mm3 (1.8-7.8); Neutrophils % 85.8 % (37.0-80.0); Platelet Count 290 K/mm3 (142-424); Red Blood Count 4.54 M/mm3 (4.60-6.20); Red Cell Distribution Width 14.8 % (11.5-17.5); White Blood Count 15.7 K/mm3 (4.8-10.8)
[2021-07-13 09:51] LABS: Chloride 104 mmol/L (98-107); MANUAL DIFFERENTIAL MANUAL DIFFERENTIAL (MANUAL DIFF); Sodium 137 mmol/L (136-145)
[2021-07-13 09:54] LABS: Alanine Aminotransferase 22 U/L (12-78); Albumin Level 3.7 g/dl (3.5-5.0); Albumin/Globulin Ratio 1.1 (1.1-1.8); Alkaline Phosphatase 138 U/L (38-126); Aspartate Amino Transferase 56 U/L (17-59); Bilirubin,Total 0.6 mg/dl (0.2-1.3); Blood Urea Nitrogen 24 mg/dl (9-20); Calcium 8.7 mg/dl (8.4-10.2); Carbon Dioxide 24 mmol/L (22.0-30.0); Creatinine Clearance Estimated 34 mL/min (50-200); Estimated Glomerular Filt Rate 34 ml/min (>60); GFR (African American) 41 ML/MIN (>60); Globulin 3.4 g/dL (1.3-3.2); Glucose 201 mg/dl (74-100); Total Protein,Serum 7.1 g/dl (6.3-8.2)
[2021-07-13 10:00] VITALS: BP 119/77; PULSE 89; RESP 18; O2SAT 95
[2021-07-13 10:16] LABS: Eosinophils % 4 % (0-3); Lymphocytes % 13 % (10-50); Monocytes % 3 % (2-9); Neutrophils % 74 % (42-76); Nucleated Red Blood Cells 1; Total Cells Counted 100
[2021-07-13 10:17] LABS: Platelet Estimate Normal
--- NOTE | 2021-07-13 10:24 | PC.NURSE ---
waiting fire protection engineer back from Dr. Yeager
[2021-07-13 10:30] VITALS: BP 119/72; PULSE 84; RESP 18; O2SAT 96
[2021-07-13 11:42] VITALS: BP 126/80; PULSE 86; RESP 18; TEMP 36.6; O2SAT 97
== END 2021-07-13 11:42 | disposition home or self-care (01) ==
PROVIDERS: Emergency Provider Emergency Medicine; PCP Internal Medicine Adolescent Medicine
DX: J18.9 Pneumonia, unspecified organism (principal); Z20.822 Contact with and (suspected) exposure to COVID-19; F03.90 Unspecified dementia, unspecified severity, without behavioral disturbance, psychotic disturbance, mood disturbance, and anxiety; F33.1 Major depressive disorder, recurrent, moderate; I25.2 Old myocardial infarction; E11.9 Type 2 diabetes mellitus without complications; K21.9 Gastro-esophageal reflux disease without esophagitis; I10 Essential (primary) hypertension; E78.5 Hyperlipidemia, unspecified; Z79.899 Other long term (current) drug therapy
CPT/HCPCS: 71045; 80053; 85007; 85025; 99283; U0003

== ENCOUNTER 2021-08-31 16:35 | Outpatient (CLI) | payer MEDICARE, MEDICAID, SELFPAY ==
[2021-08-31 16:46] LABS: Microscopic,Cath URINE MICROSCOPIC (MICROSCOPIC)
[2021-08-31 17:44] LABS: Basophils # 0.1 K/mm3 (0-0.2); Basophils % 1.6 % (0.1-2.0); Eosinophils # 0.3 K/mm3 (0.0-0.4); Eosinophils % 3.8 % (0.1-12.0); Hemoglobin 12.8 g/dL (14.1-18.0); Lymphocytes % 35.8 % (10-50); Mean Corpuscular HGB Conc 32.1 g/dL (31.8-35.4); Mean Corpuscular Hemoglobin 29.8 pg (27.0-31.2); Mean Corpuscular Volume 92.7 fl (80-94); Mean Platelet Volume 8.6 fl (7.4-10.4); Monocytes # 0.4 K/mm3 (0.1-1.0); Monocytes % 4.2 % (1.7-9.3); Neutrophils # 4.5 K/mm3 (1.8-7.8); Neutrophils % 54.5 % (37.0-80.0); Platelet Count 280 K/mm3 (142-424); Red Blood Count 4.31 M/mm3 (4.60-6.20); Red Cell Distribution Width 14.2 % (11.5-17.5); White Blood Count 8.3 K/mm3 (4.8-10.8)
[2021-08-31 18:14] LABS: Alanine Aminotransferase 11 U/L (12-78); Albumin/Globulin Ratio 0.9 (1.1-1.8); Alkaline Phosphatase 116 U/L (38-126); Anion Gap 8.3 mEq/L (5-15); Aspartate Amino Transferase 16 U/L (17-59); Bilirubin,Total 0.3 mg/dl (0.2-1.3); Blood Urea Nitrogen 17 mg/dl (9-20); Calcium 8.4 mg/dl (8.4-10.2); Carbon Dioxide 28 mmol/L (22.0-30.0); Chloride 106 mmol/L (98-107); Estimated Glomerular Filt Rate 49 ml/min (>60); GFR (African American) 59 ML/MIN (>60); Globulin 3.2 g/dL (1.3-3.2); Glucose 238 mg/dl (74-100); Potassium 4.3 mmoL/L (3.5-5.1); Sodium 138 mmol/L (136-145); Total Protein,Serum 6.2 g/dl (6.3-8.2)
[2021-08-31 18:30] LABS: 25-OH Vitamin D, Total 22.5 ng/mL (30-100)
[2021-08-31 19:03] LABS: Vitamin B12 243 pg/mL (239-931)
[2021-08-31 20:03] LABS: Appearance,Urine/Cath SL CLOUDY (Clear); Bilirubin,Cath Negative (Negative); Blood, Urine/Cath 2+ (Negative); Color,Urine/Cath YELLOW (Yellow); Glucose,Urine/Cath (UA) 1+ (Negative); Ketones,Urine/Cath Negative (Negative); Leukocyte Esterase,Cath 2+ (Negative); Nitrate,Cath Negative (Negative); PH,Urine/Cath 5.5 (5.0-8.5); Protein,Urine/Cath 1+ (Negative); Specific Gravity, Urine/Cath >= 1.030 (1.005-1.030); Urobilinogen,Cath 0.2 EU/dl (0.2)
[2021-08-31 20:15] LABS: Bacteria,Urine/Cath 2+ /lpf
== END 2021-08-31 17:32 | disposition home or self-care (01) ==
LOC: LAB 16:39
PROVIDERS: Visit Provider Nurse Practitioner Family
DX: R50.9 Fever, unspecified (principal); E11.9 Type 2 diabetes mellitus without complications; E55.9 Vitamin D deficiency, unspecified; R53.83 Other fatigue; Z79.4 Long term (current) use of insulin
CPT/HCPCS: 36415; 80053; 81001; 82306; 82607; 83036; 85025; 87086; 87088; 87186

== ENCOUNTER 2021-10-04 13:01 | Emergency (ER) | payer MEDICARE, MEDICAID, SELFPAY ==
[2021-10-04 13:00] VITALS: BP 153/78; PULSE 74; RESP 16; TEMP 36.8; O2SAT 97; BMI 27.4
--- NOTE | 2021-10-04 13:52 | HMH.EDGENADL ---
ED Disposition Clinical Impression: Diarrhea Qualifiers: Diarrhea type: unspecified type Qualified Code(s): R19.7 - Diarrhea, unspecified Disposition: Home, Self-Care Condition on Discharge: Good Additional Instructions: If he has worsening of diarrhea, he begins having more than 4 episodes a day, he has any blood in his diarrhea he begins having vomiting, refuses to eat or drink, begins appearing uncomfortable or agitated return to emergency department. Referrals: Phil Yeager MD [Primary Care Provider] - - Critical Care Critical Care Time: No Attestation: On 10/04/21, the high probability of a clinically significant, sudden or life threatening deterioration of the following system(s) required my full and direct attention, intervention and personal management. The time I documented below is in addition to time spent performing reported procedures but includes the following listed in this critical care notation. Medical Decision Making - Medical Records Medical records reviewed: Yes: I reviewed the patient's medical records. - Cristiano Inquiry Pt receiving controlled substance: No Vital Signs: 10/04/21 13:00 Temperature 98.2 F Temperature Source Oral Pulse Rate [Right Radial] 74 Respiratory Rate 16 Blood Pressure [Right Arm] 153/78 H Blood Pressure Mean [Right Arm] 103 Blood Pressure Source [Right Arm] Automatic Cuff Blood Pressure Position [Right Arm] Sitting 02 Sat by Pulse Oximetry 97 Medical Decision Narrative: Patient is an 81-year-old male presents emerged department with 2 loose bowel movements. On examination patient is well-appearing, observed in the emergency department for short period of time, and given that he has only had 2 loose bowel movements over the course of 2 days, neither of which are bloody, patient has soft nonperitoneal take abdomen has been eating and drinking as is normal have lower suspicion for a significant C. diff diarrhea, bowel obstruction, electrolyte abnormality or other cause. This return precautions were discussed with his health assessment and treatment teacher, including concerns for dehydration, any blood in his bowel movements, vomiting he would need to be reassessed. Will give him Zofran for home. General Adult HPI - General Chief complaint: Recheck/Abnormal Lab/Rx Stated complaint: RUNNY STOOL Time Seen by Provider: 10/04/21 13:20 Mode of Arrival: EMS Limitations: No Limitations Description of Symptoms (Recalled from ER Triage Doc. by RN): EMS REPORTS THAT DAUGHTER, WHOM IS THE PT'S CAREGIVER, ADVISED THEM THAT PT HAS HAD RUNNY MUCUS STOOL SINCE YESTERDAY. PT DENIES ANY BM'S TODAY. DENIES PAIN. - History of Present Illness HPI narrative: Patient is an 81-year-old male with dementia who is brought in by his is concerned because he has had 2 episodes of runny stool. states that he had one episode yesterday that was light yellow and very runny and then he had another episode today was light yellow very runny and seem to have some mucus with it. She denies any blood, any change in appetite although she states that he has a very poor appetite at baseline, fever, signs of discomfort or increased agitation from him. She does states that his dementia is quite severe and that he may or may not be able to tell her his symptoms, although she states that she can tell when he is in pain. states that last week he had constipation and she was giving had docusate to improve his symptoms. This morning he ate as normal, had homemade gravy tomatoes orange juice and cranberry juice. - Related Data Home Medications Medication Instructions Recorded Confirmed aspirin 81 mg tablet,delayed 81 mg PO DAILY 12/04/17 10/01/21 release finasteride 5 mg tablet 5 mg PO ONCE 01/26/18 10/01/21 insulin glargine 100 unit/mL (3 15 unit SQ DAILY ml 05/31/19 10/01/21 mL) subcutaneous pen Donepezil HCl [Aricept 10mg 10 mg PO HS 02/20/20 10/01/21 tablet] allopurinol 100 mg tablet 100 mg PO ta
[2021-10-04 14:00] VITALS: BP 137/76; PULSE 69; RESP 18; O2SAT 98
[2021-10-04 14:30] VITALS: BP 144/79; PULSE 67; RESP 20; O2SAT 98
[2021-10-04 14:55] VITALS: BP 144/79; PULSE 67; RESP 20; TEMP 36.9; O2SAT 99
== END 2021-10-04 14:55 | disposition home or self-care (01) ==
PROVIDERS: Emergency Provider Emergency Medicine; PCP Internal Medicine Adolescent Medicine
DX: R19.7 Diarrhea, unspecified (principal); F03.90 Unspecified dementia, unspecified severity, without behavioral disturbance, psychotic disturbance, mood disturbance, and anxiety; E11.9 Type 2 diabetes mellitus without complications; K21.9 Gastro-esophageal reflux disease without esophagitis; E78.5 Hyperlipidemia, unspecified; I10 Essential (primary) hypertension; I25.2 Old myocardial infarction; Z79.4 Long term (current) use of insulin; Z79.899 Other long term (current) drug therapy
CPT/HCPCS: 96374; 99281; J2405

== ENCOUNTER 2022-02-19 18:57 | Emergency (ER) | payer MEDICARE, MEDICAID, SELFPAY ==
[2022-02-19 18:59] VITALS: BP 149/87; PULSE 84; RESP 16; TEMP 37.1; O2SAT 97; BMI 25.7
--- NOTE | 2022-02-19 19:20 | HMH.EDGENADL ---
ED Disposition Clinical Impression: Urinary tract infection Qualifiers: Urinary tract infection type: acute cystitis Hematuria presence: with hematuria Qualified Code(s): N30.01 - Acute cystitis with hematuria Disposition: Home, Self-Care Condition on Discharge: Fair Additional Instructions: Follow up with his urologist. Return to the emergency department for any new or concerning symptoms. Prescriptions: Cefdinir [Omnicef 300mg Capsule] 300 mg PO BID #20 cap Transmission Status: Sent to [facility] Referrals: Phil Yeager MD [Primary Care Provider] - - Critical Care Critical Care Time: No Attestation: On 02/19/22, the high probability of a clinically significant, sudden or life threatening deterioration of the following system(s) required my full and direct attention, intervention and personal management. The time I documented below is in addition to time spent performing reported procedures but includes the following listed in this critical care notation. Medical Decision Making - Medical Records Medical records reviewed: Yes: I reviewed the patient's medical records. - Cristiano Inquiry Pt receiving controlled substance: No Vital Signs: 02/19/22 18:59 02/19/22 19:31 02/19/22 19:52 Temperature 98.8 F Temperature Source Oral Pulse Rate 63 86 Pulse Rate [Left Radial] 84 Respiratory Rate 16 Blood Pressure 153/80 H 149/75 H Blood Pressure [Right Arm] 149/87 H Blood Pressure Mean [Right Arm] 107 Blood Pressure Source [Right Arm] Automatic Cuff Blood Pressure Position [Right Arm] Sitting 02 Sat by Pulse Oximetry 97 97 95 Oxygen Delivery Method Room Air - Lab Data Lab results reviewed: Yes: I reviewed the patient's lab results. Lab Results 02/19/22 19:38: WBC 6.9, RBC 4.09 L, Hgb 12.2 L, Hct 38.7 L, MCV 94.5 H, MCH 29.9, MCHC 31.7 L, RDW 14.7, Plt Count 225, MPV 8.0, Neut % (Auto) 59.6, Lymph % (Auto) 30.3, [place] % (Auto) 4.4, Eos % (Auto) 4.6, Baso % (Auto) 1.2, Neut # (Auto) 4.1, Lymph # (Auto) 2.1, [place] # (Auto) 0.3, Eos # (Auto) 0.3, Baso # (Auto) 0.1 02/19/22 19:38: Sodium 138, Potassium 4.7, Chloride 107, Carbon Dioxide 27, Anion Gap 8.7, BUN 28 H, Creatinine 1.80 H, Estimated Creat Clear 35, Estimated GFR 36 L, Est GFR ( Amer) 44 L, Glucose 216 H, Calcium 8.1 L, Total Bilirubin 0.5, AST 20, ALT 14, Alkaline Phosphatase 94, Total Protein 6.2 L, Albumin 3.2 L, Globulin 3.0, Albumin/Globulin Ratio 1.1 02/19/22 19:38: Urine Color Yellow, Urine Appearance Clear, Urine pH 6.5, Ur Specific [place] 1.025, Urine Protein 3+, Urine Glucose (UA) Trace, Urine Ketones 1+, Urine Blood 3+, Urine Nitrate Positive, Urine Bilirubin 3+ A, Urine Urobilinogen 2.0, Ur Leukocyte Esterase 3+ A, Urine RBC Tntc, Urine WBC 5-10, Ur Squamous Epith Cells None, Urine Bacteria 2+ Result diagrams: 02/19/22 19:38 02/19/22 19:38 Orders (Tests/Meds): ED MEDICATIONS Generic Name Dose Route Start Last Admin Trade Name Freq PRN Reason Stop Dose Admin Cefdinir 300 mg 02/20/22 09:00 Cefdinir 300mg Capsule PO 03/06/22 08:59 DAILY CARLOS Sodium Chloride 1,000 mls @ 999 mls/hr 02/19/22 19:45 02/19/22 19:47 Sod Chlor 0.9% 1000ml Bag IV 02/19/22 20:45 999 mls/hr .Q1H1M CARLOS Administration ORDERS Category Date Time Status Urine Culture Stat Micro 02/19/22 19:38 Received Medical Decision Narrative: Patient is a 81 y/o male presenting with hematuria. Differential diagnosis given this patient's history is hemhorragic cystitis, UTI, Pyelonephritis, Renal calculi, BRUCE among others. Given this plan to order CBC, CMP, CT non-con, UA. Patient ua is mildly bloody and concerning for a UTI. Patient at increased risk for infection given his adult diaper use, history. Patient seemingly asymptomatic. Will discharge with Cefdinir and instruction to follow up with urologist. General Adult HPI - General Stated complaint: passing blood thur kidneys Time Seen by Provider: 02/19/22 19:21
[2022-02-19 19:31] VITALS: BP 153/80; PULSE 63; O2SAT 97
--- NOTE | 2022-02-19 19:44 | CT_ITS ---
PROCEDURE INFORMATION: Exam: CT Abdomen And Pelvis Without Contrast Exam date and time: 02/19/2022 7:54 PM Age: 81 years old Clinical indication: Other: Hematuria; Additional info: Stone protocol; Possible kidney stone TECHNIQUE: Imaging protocol: Computed tomography of the abdomen and pelvis without contrast. Radiation optimization: All CT scans at this facility use at least one of these dose optimization techniques: automated exposure control; mA and/or kV adjustment per patient size (includes targeted exams where dose is matched to clinical indication); or iterative reconstruction. COMPARISON: CT ABDOMEN PELVIS WO CON 12/28/2020 3:43 PM FINDINGS: Pleural spaces: Pleural effusions with basal septal thickening and pulmonary opacities. Heart: Cardiomegaly. Coronary artery calcifications. Liver: Parenchymal enhancement is not evaluated without contrast. No hepatomegaly. Gallbladder and bile ducts: Multiple calcified gallstones. Pancreas: Atrophic appearing pancreas. Spleen: There are multiple splenic calcifications likely on the basis of prior granulomatous exposure. Adrenal glands: No mass. Kidneys and ureters: Moderately severe dilation of the left collecting system and ureter. Nonobstructing calcification within the left lower renal pole measuring 7 mm with multiple calcifications within the left ureter measuring 6 mm proximally, 6 mm just inferior, 4 mm several cm inferior to this, 4 mm within the pelvis and another 2 mm calcification just before the UVJ. Stomach and bowel: No obstruction. No mucosal thickening. Appendix: No evidence of appendicitis. Intraperitoneal space: No free air. No significant fluid collection. Vasculature: Calcified atherosclerosis. Lymph nodes: No enlarged lymph nodes. Urinary bladder: Norman catheter within the urinary bladder which is decompressed however appears to demonstrate wall thickening with adjacent stranding. Reproductive: Postprocedural change to the prostate. Bones/joints: No acute fracture. Soft tissues: 3.5 cm fat containing left inguinal hernia. IMPRESSION: 1. Moderately severe dilation of the left collecting system and ureter with multiple ureteral calcifications described above. 2. Norman catheter within the urinary bladder which is decompressed however appears to demonstrate wall thickening with adjacent stranding. Correlation with UA is recommended. 3. 3.5 cm fat containing left inguinal hernia. 4. Pleural effusions with basal septal thickening and pulmonary opacities concerning for edema however atypical pneumonitis should be clinically excluded. 5. Multiple calcified gallstones.
[2022-02-19 19:45] LABS: Microscopic, Urine URINE MICROSCOPIC (MICROSCOPIC)
[2022-02-19 19:51] LABS: Basophils # 0.1 K/mm3 (0-0.2); Basophils % 1.2 % (0.1-2.0); Eosinophils # 0.3 K/mm3 (0.0-0.4); Eosinophils % 4.6 % (0.1-12.0); Hematocrit 38.7 % (42.0-52.0); Hemoglobin 12.2 g/dL (14.1-18.0); Lymphocytes # 2.1 K/mm3 (0.7-4.5); Lymphocytes % 30.3 % (10-50); Mean Corpuscular HGB Conc 31.7 g/dL (31.8-35.4); Mean Corpuscular Hemoglobin 29.9 pg (27.0-31.2); Mean Corpuscular Volume 94.5 fl (80-94); Monocytes # 0.3 K/mm3 (0.1-1.0); Monocytes % 4.4 % (1.7-9.3); Neutrophils # 4.1 K/mm3 (1.8-7.8); Neutrophils % 59.6 % (37.0-80.0); Platelet Count 225 K/mm3 (142-424); Red Blood Count 4.09 M/mm3 (4.60-6.20); Red Cell Distribution Width 14.7 % (11.5-17.5); White Blood Count 6.9 K/mm3 (4.8-10.8)
[2022-02-19 19:52] VITALS: BP 149/75; PULSE 86; O2SAT 95
[2022-02-19 20:00] LABS: Alanine Aminotransferase 14 U/L (12-78); Albumin Level 3.2 g/dl (3.5-5.0); Albumin/Globulin Ratio 1.1 (1.1-1.8); Alkaline Phosphatase 94 U/L (38-126); Anion Gap 8.7 mEq/L (5-15); Aspartate Amino Transferase 20 U/L (17-59); Bilirubin,Total 0.5 mg/dl (0.2-1.3); Blood Urea Nitrogen 28 mg/dl (9-20); Calcium 8.1 mg/dl (8.4-10.2); Carbon Dioxide 27 mmol/L (22.0-30.0); Chloride 107 mmol/L (98-107); Creatinine Clearance Estimated 35 mL/min (50-200); Estimated Glomerular Filt Rate 36 ml/min (>60); GFR (African American) 44 ML/MIN (>60); Glucose 216 mg/dl (74-100); Potassium 4.7 mmoL/L (3.5-5.1); Sodium 138 mmol/L (136-145); Total Protein,Serum 6.2 g/dl (6.3-8.2)
[2022-02-19 20:27] LABS: Appearance,Urine CLEAR (Clear); Blood, Urine 3+ (Negative); Color,Urine YELLOW (Yellow); Glucose,Urine (UA) TRACE (Negative); Ketones,Urine 1+ (Negative); Leukocyte Esterase,Urine 3+ (Negative); Nitrate,Urine POSITIVE (Negative); PH,Urine 6.5 (5.0-8.5); Protein,Urine 3+ (Negative); Specific Gravity, Urine 1.025 (1.005-1.030)
[2022-02-19 20:28] LABS: Bilirubin,Urine 3+ (Negative)
[2022-02-19 20:58] LABS: Bacteria,Urine 2+ /lpf; RBC,Urine TNTC #/hpf (0-3)
[2022-02-19 21:00] VITALS: BP 137/87; PULSE 87; RESP 18; TEMP 37.1; O2SAT 95
[2022-02-19 21:39] VITALS: BP 149/85; PULSE 87; RESP 18; TEMP 36.7; O2SAT 95
== END 2022-02-19 21:41 | disposition home or self-care (01) ==
PROVIDERS: Emergency Provider Emergency Medicine; PCP Internal Medicine Adolescent Medicine
DX: N30.01 Acute cystitis with hematuria (principal); F03.90 Unspecified dementia, unspecified severity, without behavioral disturbance, psychotic disturbance, mood disturbance, and anxiety; I25.10 Atherosclerotic heart disease of native coronary artery without angina pectoris; E11.9 Type 2 diabetes mellitus without complications; K21.9 Gastro-esophageal reflux disease without esophagitis; I10 Essential (primary) hypertension; E78.5 Hyperlipidemia, unspecified; Z87.442 Personal history of urinary calculi
CPT/HCPCS: 51702; 74176; 80053; 81001; 85025; 87086; 87088; 87186; 96365; 99284

== ENCOUNTER 2022-02-20 15:07 | Observation (INO) | payer MEDICARE, MEDICAID, SELFPAY ==
[2022-02-20 15:14] VITALS: BMI 27.1
[2022-02-20 16:00] VITALS: BP 139/72; PULSE 91; RESP 20; TEMP 36.3; O2SAT 98
[2022-02-20 17:04] LABS: Basophils # 0.1 K/mm3 (0-0.2); Eosinophils # 0.2 K/mm3 (0.0-0.4); Eosinophils % 1.8 % (0.1-12.0); Hematocrit 38.7 % (42.0-52.0); Hemoglobin 12.4 g/dL (14.1-18.0); Lymphocytes # 2.5 K/mm3 (0.7-4.5); Lymphocytes % 25.2 % (10-50); Mean Corpuscular HGB Conc 32.1 g/dL (31.8-35.4); Mean Corpuscular Volume 93.7 fl (80-94); Mean Platelet Volume 8.4 fl (7.4-10.4); Monocytes # 0.4 K/mm3 (0.1-1.0); Neutrophils # 6.8 K/mm3 (1.8-7.8); Neutrophils % 67.9 % (37.0-80.0); Platelet Count 278 K/mm3 (142-424); Red Blood Count 4.13 M/mm3 (4.60-6.20); Red Cell Distribution Width 14.6 % (11.5-17.5)
[2022-02-20 17:05] LABS: Chloride 107 mmol/L (98-107); Sodium 137 mmol/L (136-145)
[2022-02-20 17:06] LABS: Potassium 4.8 mmoL/L (3.5-5.1)
[2022-02-20 17:08] LABS: Blood Urea Nitrogen 27 mg/dl (9-20); Creatinine Clearance Estimated 38 mL/min (50-200); Estimated Glomerular Filt Rate 39 ml/min (>60); GFR (African American) 47 ML/MIN (>60)
[2022-02-20 17:09] LABS: Anion Gap 10.8 mEq/L (5-15); Calcium 7.6 mg/dl (8.4-10.2); Carbon Dioxide 24 mmol/L (22.0-30.0); Glucose 231 mg/dl (74-100)
[2022-02-20 17:25] LABS: Coronavirus 19, PCR Not Detected (NotDetected); Influenza A, PCR Not Detected (NotDetected); Influenza B, PCR Not Detected (NotDetected)
--- NOTE | 2022-02-20 17:28 | HMH.HP ---
*Admission Date: 02/20/22 *Chief complaint: Diarrhea/hematuria/UTI with failed outpatient therapy *History of present illness: 81-year-old white male with severe dementia who has been on hospice care intermittently at home who presented to the emergency department yesterday with hematuria noticed by his when she was cleaning him after changing his adult diaper. In the emergency department he was found to have kidney stones and evidence of UTI, with swallowing well and was prescribed cefdinir and discharged home. Unfortunately, cefdinir has caused significant amounts of diarrhea. This is been extremely difficult for his to handle, he has become somewhat more somnolent and has appeared to be dehydrated. He was seen in our office, found to be dry, slightly tachycardic. And is admitted to hospital for UTI with failed outpatient therapy, hematuria, nephrolithiasis and for urology consultation. [facility] History I have reviewed the patient's past medical history: Yes Medical History: Reports:: Cancer (COLON AND PROSTATE), Congestive Heart Failure, Coronary Artery Disease, Dementia, Depression, Diabetes Mellitus Type 2, Gastroesophageal Reflux Disease(GERD), Hyperlipidemia, Hypertension, Kidney Stones, Myocardial Infarction, Urinary Tract Infection Denies:: Diabetes Mellitus Type 1, Internal Pacemaker, Lung Disease, MRSA, Seizures *Have you ever received a pneumonia vaccine?: Yes *Have you received a flu vaccine this season?: No Other Medical History: Reports: Anemia, Arthritis, Radiation Therapy. Denies: Blood Transfusion Reaction Other Surgeries: Yes: No Previous Surgery, Appendectomy, Cancer Surgery, Cardiac Surgery, Colonoscopy, Coronary Stent, Other. No: Pacemaker Amputation: No Fractures: Yes (left leg) - *Social History Last grade of school completed: 9th or 10th Smoking Status: Never smoker Tobacco Type: cigarettes Alcohol Intake: never Alcohol Intake Frequency:: other Substance Use Type: denies use *Occupational Status:: retired Housing: house Household Members: spouse *Travel in the last 8 weeks: None - Psychiatric History Pschychiatric History:: Reports:: Depression Family Hx:: Coronary Artery Disease, Diabetes, Heart Attack Review of Systems - Review of Systems Review of systems:: unable to obtain, pertinent systems reviewed and negative unless documented below Meds Home Medications Medication Instructions Recorded Confirmed Type aspirin 81 mg tablet,delayed 81 mg PO DAILY 12/04/17 01/01/22 History release finasteride 5 mg tablet 5 mg PO ONCE 01/26/18 01/01/22 History insulin glargine 100 unit/mL (3 15 unit SQ DAILY ml 05/31/19 01/01/22 History mL) subcutaneous pen Donepezil HCl [Aricept 10mg 10 mg PO HS 02/20/20 01/01/22 History tablet] Losartan Potassium [Cozaar 100mg 50 mg PO DAILY 30 Days #15 tab 02/20/20 01/01/22 Rx Tablets] allopurinol 100 mg tablet 100 mg PO tab 06/27/21 01/01/22 History insulin degludec 100 unit/mL (3 unit SQ 06/27/21 01/01/22 History mL) subcutaneous pen Ondansetron [Zofran 4mg ODT] 4 mg PO BIDP PRN #10 tab 10/04/21 01/01/22 Rx omeprazole 40 mg capsule,delayed 40 mg PO cap 01/01/22 01/01/22 History release Cefdinir [Omnicef 300mg Capsule] 300 mg PO BID #20 cap 02/19/22 Rx Allergies Allergy/AdvReac Type Severity Reaction Status Date / Time pregabalin [From Lyrica] Allergy Verified 01/01/22 13:13 hydromorphone [From Dilaudid] AdvReac Verified 01/01/22 13:13 Exam Vital signs and Labs for Last 24 Hours: Temp Pulse Resp BP Pulse Ox 97.4 F L 91 H 20 139/72 98 02/20/22 15:52 02/20/22 15:52 02/20/22 15:52 02/20/22 15:52 02/20/22 15:52 Laboratory Results - last 24 hr 02/20/22 16:40: WBC 10.0 D, RBC 4.13 L, Hgb 12.4 L, Hct 38.7 L, MCV 93.7, MCH 30.0, MCHC 32.1, RDW 14.6, Plt Count 278, MPV 8.4, Neut % (Auto) 67.9, Lymph % (Auto) 25.2, [place] % (Auto) 4.0, Eos % (Auto) 1.8, Baso % (Auto) 1.0, Neut # (Auto) 6.8, Lymph # (Aut
[2022-02-20 17:36] LABS: POC Glucose,Bedside 247 (70-110)
[2022-02-20 20:00] VITALS: BP 118/74; PULSE 70; RESP 17; TEMP 36.8; O2SAT 95
[2022-02-20 20:34] LABS: POC Glucose,Bedside 145 (70-110)
--- NOTE | 2022-02-20 22:43 | HMH.PHAVTE ---
[facility] Pharmacy VTE Monitoring - Patient Demographics Admission date: 02/20/22 Report Date: 02/20/22 Time: 22:43 Allergies/Adverse Reactions: Patient Allergies pregabalin [From Lyrica] Allergy (Verified 01/01/22 13:13) hydromorphone [From Dilaudid] Adverse Reaction (Verified 01/01/22 13:13) Height: 1.7 m Weight: 78.5 kg Patient Problems: Current Active Problems BRUCE (acute kidney injury) (Acute) Dementia (Chronic) Urinary tract infection (Acute) Depression (Chronic) - VTE Risk Labs: VTE Related Lab Results Hgb 12.4 g/dL (14.1-18.0) L 02/20/22 16:40 Hct 38.7 % (42.0-52.0) L 02/20/22 16:40 Plt Count 278 K/mm3 (142-424) 02/20/22 16:40 BUN 27 mg/dl (9-20) H 02/20/22 16:40 Creatinine 1.70 mg/dl (0.66-1.25) H 02/20/22 16:40 Estimated Creat Clear 38 mL/min (50-200) 02/20/22 16:40 Was VTE Risk Assessment Performed: Yes VTE Score: 2 Clinical Trial Participant: No - Prophylaxis VTE Prophylaxis Ordered?: Yes Types of VTE Prophylaxis: TEDS Knee High
[2022-02-21 04:00] VITALS: BP 110/63; PULSE 78; RESP 17; TEMP 36.6; O2SAT 94
[2022-02-21 05:53] VITALS: BMI 27.6
[2022-02-21 06:46] LABS: Basophils # 0.1 K/mm3 (0-0.2); Eosinophils # 0.4 K/mm3 (0.0-0.4); Eosinophils % 3.8 % (0.1-12.0); Hematocrit 34.9 % (42.0-52.0); Hemoglobin 11.3 g/dL (14.1-18.0); Lymphocytes % 32.6 % (10-50); Mean Corpuscular HGB Conc 32.5 g/dL (31.8-35.4); Mean Corpuscular Volume 92.5 fl (80-94); Mean Platelet Volume 8.2 fl (7.4-10.4); Monocytes # 0.4 K/mm3 (0.1-1.0); Monocytes % 4.4 % (1.7-9.3); Neutrophils # 5.3 K/mm3 (1.8-7.8); Neutrophils % 58.2 % (37.0-80.0); Platelet Count 243 K/mm3 (142-424); Red Blood Count 3.78 M/mm3 (4.60-6.20); Red Cell Distribution Width 14.6 % (11.5-17.5); White Blood Count 9.2 K/mm3 (4.8-10.8)
[2022-02-21 06:51] LABS: Anion Gap 9.1 mEq/L (5-15); Blood Urea Nitrogen 25 mg/dl (9-20); Calcium 7.9 mg/dl (8.4-10.2); Carbon Dioxide 26 mmol/L (22.0-30.0); Chloride 107 mmol/L (98-107); Creatinine Clearance Estimated 41 mL/min (50-200); Estimated Glomerular Filt Rate 42 ml/min (>60); GFR (African American) 50 ML/MIN (>60); Glucose 95 mg/dl (74-100); Potassium 4.1 mmoL/L (3.5-5.1); Sodium 138 mmol/L (136-145)
[2022-02-21 08:00] VITALS: BP 108/68; PULSE 67; RESP 18; TEMP 36.6; O2SAT 93
--- NOTE | 2022-02-21 09:07 | HMH.ACPN2 ---
Internal Medicine - PN: Subj *Date: 02/21/22 *Time: 09:07 Interval history: Patient did well overnight, seem to sleep well. His dementia precludes a lot of active conversation this morning but he denies pain and is very pleasant and smiles. Exam Vital signs and Labs for Last 24 Hours: Temp Pulse Resp BP Pulse Ox 97.8 F 67 18 108/68 L 93 L 02/21/22 08:00 02/21/22 08:00 02/21/22 08:00 02/21/22 08:00 02/21/22 08:00 Laboratory Results - last 24 hr 02/20/22 16:40: WBC 10.0 D, RBC 4.13 L, Hgb 12.4 L, Hct 38.7 L, MCV 93.7, MCH 30.0, MCHC 32.1, RDW 14.6, Plt Count 278, MPV 8.4, Neut % (Auto) 67.9, Lymph % (Auto) 25.2, [place] % (Auto) 4.0, Eos % (Auto) 1.8, Baso % (Auto) 1.0, Neut # (Auto) 6.8, Lymph # (Auto) 2.5, [place] # (Auto) 0.4, Eos # (Auto) 0.2, Baso # (Auto) 0.1 02/20/22 16:40: Sodium 137, Potassium 4.8, Chloride 107, Carbon Dioxide 24, Anion Gap 10.8, BUN 27 H, Creatinine 1.70 H, Estimated Creat Clear 38, Estimated GFR 39 L, Est GFR ( Amer) 47 L, Glucose 231 H, Calcium 7.6 L 02/20/22 17:02: POC Glucose 247 H 02/20/22 17:15: SARS-CoV-2 (PCR) Not detected, Influenza A Untype (PCR) Not detected, Influenza Type B (PCR) Not detected 02/20/22 20:26: POC Glucose 145 H 02/21/22 06:06: WBC 9.2, RBC 3.78 L, Hgb 11.3 L, Hct 34.9 L, MCV 92.5, MCH 30.0, MCHC 32.5, RDW 14.6, Plt Count 243, MPV 8.2, Neut % (Auto) 58.2, Lymph % (Auto) 32.6, [place] % (Auto) 4.4, Eos % (Auto) 3.8, Baso % (Auto) 1.0, Neut # (Auto) 5.3, Lymph # (Auto) 3.0, [place] # (Auto) 0.4, Eos # (Auto) 0.4, Baso # (Auto) 0.1 02/21/22 06:06: Sodium 138, Potassium 4.1, Chloride 107, Carbon Dioxide 26, Anion Gap 9.1, BUN 25 H, Creatinine 1.60 H, Estimated Creat Clear 41, Estimated GFR 42 L, Est GFR ( Amer) 50 L, Glucose 95 D, Calcium 7.9 L I & O for Last 24 hours: Intake & Output 02/18/22 02/19/22 02/20/22 02/21/22 11:59 11:59 11:59 11:59 Intake Total 240 / 240 Balance 240 / 240 Weight 175 lb 14.4 oz Narrative: Heart rate regular, lungs clear, abdomen soft, no edema or clubbing. Neurologic exam notable for his dementia. No focal deficits. Skin clear. Assessment and Plan (1) BRUCE (acute kidney injury) Status: Acute Category: Medical Code(s): N17.9 - Acute kidney failure, unspecified (2) Urinary tract infection Status: Acute Category: Medical Code(s): N39.0 - Urinary tract infection, site not specified (3) Dementia Status: Chronic Category: Medical Code(s): F03.90 - Unspecified dementia without behavioral disturbance (4) Depression Status: Chronic Qualifiers: Category: Medical Code(s): F32.9 - Major depressive disorder, single episode, unspecified - Assessment and plan all Dx Assessment and Plan for all problems:: Hypocalcemia noted. Will replace IV. Hematuria-urology consult today. Tolerating IV antibiotics well. PT/OT evaluation today to evaluate for home safety.
--- NOTE | 2022-02-21 09:29 | HMH.PHAINT ---
MEDICATION RECONCILIATION COMPLETED ON PATIENT USING EXTERNAL FILL HISTORY FROM PHARMACY. -PINKY XIONG, SENTHILD
--- NOTE | 2022-02-21 10:07 | HMH.PTEV ---
Physical Therapy Evaluation Rehab PT IP Evaluation Start: 02/21/22 09:06 Freq: ONCE Status: Active Protocol: Document 02/21/22 10:04 JENISE (Rec: 02/21/22 10:06 JENISE [id number]) Subjective/History History History 81 yowm adm to [facility] with UTI and hx of baseline dementia. He lives with spouse and is generally independent with mobility at home. Subjective Subjective Pt with no c/o this am. Rehab PT IP Eval Objective Appearance Patient Behavior Appropriate Patient Orientation Person,Place Difficulty following instructions none Speech Pattern Clear Ambulation Patient Able to Ambulate Yes Ambulation Observation IP General Gait Pattern Observation Shuffling Step Ambulation Distance (feet) 10 Ambulation Assistive Device None Ambulation Ability Contact Guard/Hand Hold Balance Ability to Arise Able, uses arms to help Sitting Balance Steady, safe Standing Balance Steady, wide stance Dynamic Sitting Balance Ability Good Dynamic Standing Balance Ability Fair Transfers Bed Transfer Ability Contact Guard/Hand Hold Chair Transfer Ability Contact Guard/Hand Hold Sit to Stand Bed Transfer Ability Contact Guard/Hand Hold Sit to Stand Chair Transfer Ability Contact Guard/Hand Hold Rehab PT IP prob,goals,plan Problems Date of Evaluation: 02/21/22 PT IP Problems Bed Mobility,Transfers,Gait Rehab Potential Rehab Potential Good Plan PT Intervention Plan Bed Mobility,Transfers,Gait, Therapeutic Exercise PT Plan Frequency BID Duration LOS Discharge Goals Bed Transfer Ability Supervision/Stand by Sit to Stand Chair Transfer Ability Supervision/Stand by Ambulation Distance (feet) 20 Discharge Plan PT Discharge Plan Pt is appropriate to return home once medically stable with assist. G -code Required No Eval Complexity Eval Charge Codes 37706 - Moderate Complexity PHYSICIAN CERTIFICATION: I certify the specified therapy services for Cliff Wright are required, authorized, and reviewed every 30 days.
--- NOTE | 2022-02-21 11:49 | HMH.OTEV ---
OT Inpatient Evaluation Rehab OT IP Evaluation Start: 02/21/22 09:06 Freq: ONCE Status: Complete Protocol: Document 02/21/22 11:32 RA (Rec: 02/21/22 11:48 RA [id number]) Rehab OT IP Assessment Subjective History 81-year-old white male with severe dementia who has been on hospice care intermittently at home who presented to the emergency department yesterday with hematuria noticed by his when she was cleaning him after changing his adult diaper. In the emergency department he was found to have kidney stones and evidence of UTI, with swallowing well and was prescribed cefdinir and discharged home. Unfortunately, cefdinir has caused significant amounts of diarrhea. This is been extremely difficult for his to handle, he has become somewhat more somnolent and has appeared to be dehydrated. He was seen in our office, found to be dry, slightly tachycardic. And is admitted to hospital for UTI with failed outpatient therapy, hematuria, nephrolithiasis and for urology consultation. [facility] History I have reviewed the patient's past medical history: Yes Medical History: Reports:: Cancer (COLON AND PROSTATE), Congestive Heart Failure, Coronary Artery Disease, Dementia, Depression, Diabetes Mellitus Type 2, Gastroesophageal Reflux Disease(GERD), Hyperlipidemia, Hypertension, Kidney Stones, Myocardial Infarction, Urinary Tract Infection Patient lives at home with with hospice care. Patient 's care for him at home
[2022-02-21 12:02] LABS: POC Glucose,Bedside 115 (70-110)
[2022-02-21 14:39] VITALS: BMI 27.6
--- NOTE | 2022-02-21 15:29 | PC.NURSE ---
PT IS RESTING IN BED. ALERT TO SELF ONLY. PT ANSWERS SIMPLE YES OR NO QUESTIONS AND FOLLOWS SIMPLE COMMANDS. TOLERATED SITTING UP IN THE CHAIR FOR SEVERAL HOURS THIS SHIFT. EATING AND DRINKING WELL. PT HAS HAD A FEW LOOSE BOWEL MOVEMENTS THIS SHIFT. URINE DARK CHELSEA. PT IS INCONTINENT OF URINE/BOWEL. LUNG SOUNDS CLEAR. ABDOMEN SOFT/NON TENDER WITH ACTIVE BOWEL SOUNDS. WILL CONTINUE TO MONITOR.
[2022-02-21 16:00] VITALS: BP 143/73; PULSE 97; RESP 22; TEMP 36.9; O2SAT 87
--- NOTE | 2022-02-21 16:01 | HMH.CONS ---
*Admission Date: 02/20/22 *Reason for consult:: Gross hematuria, ureteral stones and left hydronephrosis *History of present illness: Patient is an 81-year-old white male well-known to me. He has a history of prostate cancer status post radiation several years ago with a good response. He also has a history of left ureteral stones. He came to the ER 2 days ago with blood that was noted in his depends. He is incontinent due to some dementia. He came to the emergency room and a CT scan showed multiple stones in the left ureter with a dilated ureter and hydronephrosis. He was discharged home with an antibiotic and the next day the urine appeared brighter shows took him to Dr. Yeager and patient was admitted to the hospital. Patient has a history of a large left distal ureteral stone that was treated with ureteroscopy and lithotripsy a year and a half ago. CT scan last summer showed several small stones in the course of the ureter and dilated ureter which was thought to be chronic due to the longstanding stone that had been treated. Stones in the ureter appeared to be adherent to the wall and the we have been watching those. The recent scan 2 days ago appears exactly the same as it did last summer. Patient has never had any left-sided flank pain even when he had the larger left distal ureteral stone. He does have evidence of urinary tract infection. His white count is normal and his creatinine is elevated but stable compared to baseline. Patient is on antibiotics for UTI. He is not verbal due to his dementia but is cooperative. [facility] History Medical History: Reports:: Cancer (COLON AND PROSTATE), Congestive Heart Failure, Coronary Artery Disease, Dementia, Depression, Diabetes Mellitus Type 2, Gastroesophageal Reflux Disease(GERD), Hyperlipidemia, Hypertension, Kidney Stones, Myocardial Infarction, Urinary Tract Infection Denies:: Diabetes Mellitus Type 1, Internal Pacemaker, Lung Disease, MRSA, Seizures *Have you ever received a pneumonia vaccine?: Yes *Have you received a flu vaccine this season?: No Other Medical History: Reports: Anemia, Arthritis, Radiation Therapy. Denies: Blood Transfusion Reaction Other Surgeries: Yes: No Previous Surgery, Appendectomy, Cancer Surgery, Cardiac Surgery, Colonoscopy, Coronary Stent, Other. No: Pacemaker Amputation: No Fractures: Yes (left leg) - *Social History Last grade of school completed: 9th or 10th Smoking Status: Never smoker Tobacco Type: cigarettes Alcohol Intake: never Alcohol Intake Frequency:: other Substance Use Type: denies use *Occupational Status:: retired Housing: house Household Members: spouse *Travel in the last 8 weeks: None - Psychiatric History Pschychiatric History:: Reports:: Depression Family Hx:: Coronary Artery Disease, Diabetes, Heart Attack Review of Systems - Review of Systems Review of systems:: pertinent systems reviewed and negative unless documented below Meds Home Medications Medication Instructions Recorded Confirmed Type aspirin 81 mg tablet,delayed 81 mg PO DAILY 12/04/17 02/21/22 History release finasteride 5 mg tablet 5 mg PO DAILY 01/26/18 02/21/22 History Donepezil HCl [Aricept 10mg 10 mg PO HS 02/20/20 02/21/22 History tablet] allopurinol 100 mg tablet 100 mg PO DAILY tab 06/27/21 02/21/22 History insulin degludec 100 unit/mL (3 7 unit SQ DAILY 06/27/21 02/21/22 History mL) subcutaneous pen omeprazole 40 mg capsule,delayed 40 mg PO DAILY cap 01/01/22 02/21/22 History release Cefdinir [Omnicef 300mg Capsule] 300 mg PO BID 02/21/22 02/21/22 History Fluticasone Propionate [Flonase 1 spray NS DAILY 02/21/22 02/21/22 History Allergy Relief NS] Allergies Allergy/AdvReac Type Severity Reaction Status Date / Time pregabalin [From Lyrica] Allergy Verified 01/01/22 13:13 hydromorphone [From Dilaudid] AdvReac Verified 01/01/22 13:13 Exam Vital signs and Labs for Last 24 Hours: Temp Pulse Resp BP Pulse
--- NOTE | 2022-02-21 17:14 | XR_ITS ---
PROCEDURE INFORMATION: Exam: XR Chest Exam date and time: 02/21/2022 5:22 PM Age: 81 years old Clinical indication: Wheezing; Additional info: Left sided wheezing. TECHNIQUE: Imaging protocol: XR of the chest. Views: 2 views. COMPARISON: CR XR CHEST PORTABLE 07/13/2021 9:18 AM FINDINGS: Lungs: Mild prominence of the interstitial markings. Findings may reflect changes of pulmonary venous congestion. Could not exclude an infectious etiology. Pleural spaces: Bilateral pleural effusions greatest on the left now demonstrated. Heart/Mediastinum: Cardiomegaly. Bones/joints: Unremarkable. IMPRESSION: 1. Cardiomegaly. 2. Bilateral pleural effusions with prominence of the interstitial markings as described above. Findings may reflect congestive heart failure. Other etiologies including an infectious etiology should be considered.
[2022-02-21 20:00] VITALS: BP 140/77; PULSE 96; RESP 14; TEMP 36.8; O2SAT 96
[2022-02-21 20:34] LABS: POC Glucose,Bedside 105 (70-110)
[2022-02-21 20:34] LABS: POC Glucose,Bedside 198 (70-110)
[2022-02-21 21:02] LABS: POC Glucose,Bedside 261 (70-110)
[2022-02-22] VITALS: BP 134/86; PULSE 90; RESP 17; TEMP 36.9; O2SAT 93
[2022-02-22 04:00] VITALS: BP 135/74; PULSE 72; RESP 15; TEMP 36.8; O2SAT 96
[2022-02-22 06:01] VITALS: BMI 27.5
--- NOTE | 2022-02-22 06:02 | P.PN_ITS ---
Internal Medicine - PN: Subj *Date: 02/22/22 *Time: 06:02 Interval history: Seen by urology yesterday. No stones to intervene on. Suspect hematuria secondary to infection. Pleasant this morning on exam. No fevers overnight. Remains hemodynamically stable. Remains incontinent, wearing depends. Patient has no complaints this morning. He is at his baseline flat affect. Exam Vital signs and Labs for Last 24 Hours: Temp Pulse Resp BP Pulse Ox 98.3 F 72 15 135/74 96 02/22/22 04:00 02/22/22 04:00 02/22/22 04:00 02/22/22 04:00 02/22/22 04:00 Laboratory Results - last 24 hr 02/21/22 05:20: POC Glucose 115 H 02/21/22 06:06: WBC 9.2, RBC 3.78 L, Hgb 11.3 L, Hct 34.9 L, MCV 92.5, MCH 30.0, MCHC 32.5, RDW 14.6, Plt Count 243, MPV 8.2, Neut % (Auto) 58.2, Lymph % (Auto) 32.6, [place] % (Auto) 4.4, Eos % (Auto) 3.8, Baso % (Auto) 1.0, Neut # (Auto) 5.3, Lymph # (Auto) 3.0, [place] # (Auto) 0.4, Eos # (Auto) 0.4, Baso # (Auto) 0.1 02/21/22 06:06: Sodium 138, Potassium 4.1, Chloride 107, Carbon Dioxide 26, Anion Gap 9.1, BUN 25 H, Creatinine 1.60 H, Estimated Creat Clear 41, Estimated GFR 42 L, Est GFR ( Amer) 50 L, Glucose 95 D, Calcium 7.9 L 02/21/22 11:40: POC Glucose 105 02/21/22 15:35: POC Glucose 198 H 02/21/22 20:50: POC Glucose 261 H I & O for Last 24 hours: Intake & Output 02/19/22 02/20/22 02/21/22 02/22/22 23:59 23:59 23:59 23:59 Intake Total 240 / 240 2507 / 2507 Output Total 0 / 0 Balance 240 / 240 2507 / 2507 Weight 78.5 kg 79.78 kg 79.515 kg Assessment and Plan (1) BRUCE (acute kidney injury) Status: Acute Category: Medical Code(s): N17.9 - Acute kidney failure, unspecified (2) Urinary tract infection Status: Acute Category: Medical Code(s): N39.0 - Urinary tract infection, site not specified (3) Dementia Status: Chronic Category: Medical Code(s): F03.90 - Unspecified dementia without behavioral disturbance (4) Depression Status: Chronic Qualifiers: Category: Medical Code(s): F32.9 - Major depressive disorder, single episode, unspecified (5) Ureteral calculi Status: Acute Category: Medical Code(s): N20.1 - Calculus of ureter (6) Hematuria Status: Acute Category: Medical Code(s): R31.9 - Hematuria, unspecified (7) Type 2 diabetes mellitus with other specified complication Status: Chronic Qualifiers: Diabetes mellitus usp insulin use: without usp use Qualified Code(s): E11.69 - Type 2 diabetes mellitus with other specified complication Category: Medical Code(s): E11.69 - Type 2 diabetes mellitus with other specified complication
[2022-02-22 06:23] LABS: POC Glucose,Bedside 115 (70-110)
--- NOTE | 2022-02-22 06:47 | PC.NURSE ---
Pt a + o x2. Pt very cooperative with care. Limited speech but is able to voice needs. Pt has been NPO since midnight. Pt has had 2 wet depends during shift, urine is yellow, no hematuria noted. no complaints voiced to staff. Call bull in reach. bed alarm on for safety.
[2022-02-22 06:53] LABS: Basophils # 0.1 K/mm3 (0-0.2); Basophils % 0.9 % (0.1-2.0); Eosinophils # 0.3 K/mm3 (0.0-0.4); Eosinophils % 2.3 % (0.1-12.0); Hematocrit 39.2 % (42.0-52.0); Hemoglobin 12.5 g/dL (14.1-18.0); Lymphocytes # 2.7 K/mm3 (0.7-4.5); Lymphocytes % 23.5 % (10-50); Mean Corpuscular HGB Conc 31.8 g/dL (31.8-35.4); Mean Corpuscular Hemoglobin 29.9 pg (27.0-31.2); Mean Corpuscular Volume 93.9 fl (80-94); Mean Platelet Volume 8.3 fl (7.4-10.4); Monocytes # 0.5 K/mm3 (0.1-1.0); Monocytes % 4.5 % (1.7-9.3); Neutrophils # 7.9 K/mm3 (1.8-7.8); Neutrophils % 68.8 % (37.0-80.0); Platelet Count 288 K/mm3 (142-424); Red Blood Count 4.17 M/mm3 (4.60-6.20); Red Cell Distribution Width 14.7 % (11.5-17.5); White Blood Count 11.5 K/mm3 (4.8-10.8)
[2022-02-22 07:24] LABS: Anion Gap 9.4 mEq/L (5-15); Blood Urea Nitrogen 29 mg/dl (9-20); Calcium 8.6 mg/dl (8.4-10.2); Carbon Dioxide 25 mmol/L (22.0-30.0); Chloride 106 mmol/L (98-107); Creatinine Clearance Estimated 36 mL/min (50-200); Estimated Glomerular Filt Rate 36 ml/min (>60); GFR (African American) 44 ML/MIN (>60); Glucose 123 mg/dl (74-100); Potassium 4.4 mmoL/L (3.5-5.1); Sodium 136 mmol/L (136-145)
[2022-02-22 07:35] VITALS: BP 147/91; PULSE 90; RESP 18; TEMP 36.8; O2SAT 98
--- NOTE | 2022-02-22 09:47 | SW/DCPLANNER ---
Addendum entered by [facility] 02/22/22 13:14: Sanjana garcia/ [facility] has stated that bed will be delivered at first of next week and is agreeable with plan. has requested an all electric bed: [facility] will follow up with patient's family. Addendum entered by [facility] 02/22/22 10:49: Stu stated that services will begin first of next week for this patient. Addendum entered by [facility] 02/22/22 10:15: Patient information/order has been faxed to [facility] for hospital bed and [facility] for home health services. Original Note: I spoke with this patients this AM regarding discharge plans: she wants patient to return home, he is already established with Medicaid waiver services that provide in home sitters, is agreeable to home health services (no preference) and is in need of a hospital bed (wants to use [facility]). is not interested in placement at this time for this patient. Patient could discharge soon: hospital bed will be set up today and home health will be set up at time of discharge.
--- NOTE | 2022-02-22 09:54 | CARE MANAGER ---
Patient has medical condition which requires positioning of the body in ways not feasible with an ordinary bed. KASSY Erickson
--- NOTE | 2022-02-22 12:38 | HMH.CONFU ---
Internal Medicine - PN: Subj *Date: 02/22/22 *Time: 12:38 Interval history: 81-year-old white male with history of prostate cancer and dementia with a recent gross hematuria. CT scan showed nonobstructing ureteral stones which were stable from a scan last year. His urinalysis is consistent with a urinary tract infection and I believe that is the cause of the hematuria. He is on antibiotics and by report the nursing staff states that there has been no blood in his depends overnight or this morning. He has no flank pain, nausea or vomiting. Exam Vital signs and Labs for Last 24 Hours: Temp Pulse Resp BP Pulse Ox 98.3 F 90 18 147/91 H 98 02/22/22 07:35 02/22/22 07:35 02/22/22 07:35 02/22/22 07:35 02/22/22 07:35 Laboratory Results - last 24 hr 02/21/22 11:40: POC Glucose 105 02/21/22 15:35: POC Glucose 198 H 02/21/22 20:50: POC Glucose 261 H 02/22/22 05:20: POC Glucose 115 H 02/22/22 06:25: WBC 11.5 H, RBC 4.17 L, Hgb 12.5 L, Hct 39.2 L, MCV 93.9, MCH 29.9, MCHC 31.8, RDW 14.7, Plt Count 288, MPV 8.3, Neut % (Auto) 68.8, Lymph % (Auto) 23.5, [place] % (Auto) 4.5, Eos % (Auto) 2.3, Baso % (Auto) 0.9, Neut # (Auto) 7.9 H, Lymph # (Auto) 2.7, [place] # (Auto) 0.5, Eos # (Auto) 0.3, Baso # (Auto) 0.1 02/22/22 06:25: Sodium 136, Potassium 4.4, Chloride 106, Carbon Dioxide 25, Anion Gap 9.4, BUN 29 H, Creatinine 1.80 H, Estimated Creat Clear 36, Estimated GFR 36 L, Est GFR ( Amer) 44 L, Glucose 123 H, Calcium 8.6 I & O for Last 24 hours: Intake & Output 03/22/22 03/23/22 03/24/22 03/25/22 23:59 23:59 23:59 23:59 Intake Total 240 / 240 2507 / 2507 0 / 0 Output Total 0 / 0 Balance 240 / 240 2507 / 2507 0 / 0 Weight 78.5 kg 79.78 kg 79.515 kg - Constitutional no acute distress - *Routine HEENT Exam Head: Present: normocephalic Eye: Present: EOMI, PERRL ENT: Present: mucous membranes moist - *Routine Neck Exam Present: supple. Absent: lymphadenopathy - *Routine Respiratory Exam Absent: accessory muscle use - *Routine Cardiovascular Exam Absent: JVD - *Routine Abdominal Exam Present: soft. Absent: tenderness - *Routine Extremities Exam Absent: cyanosis, clubbing, edema - *Routine Skin Exam Present: warm. Absent: rash - *Routine Neurological Exam Present: alert Assessment and Plan (1) BRUCE (acute kidney injury) Status: Acute Category: Medical Code(s): N17.9 - Acute kidney failure, unspecified (2) Urinary tract infection Status: Acute Category: Medical Code(s): N39.0 - Urinary tract infection, site not specified (3) Dementia Status: Chronic Category: Medical Code(s): F03.90 - Unspecified dementia without behavioral disturbance (4) Depression Status: Chronic Qualifiers: Category: Medical Code(s): F32.9 - Major depressive disorder, single episode, unspecified (5) Ureteral calculi Status: Acute Category: Medical Code(s): N20.1 - Calculus of ureter (6) Hematuria Status: Acute Category: Medical Code(s): R31.9 - Hematuria, unspecified Gross hematuria in this 81-year-old white male with a history of nephrolithiasis. Patient's urine is clearing on antibiotics and I believe that is the source of his hematuria. He does have some stones in the course of his ureter but his ureter is chronically dilated from a previous large stone in the distal ureter that was treated. The stones have been in a stable position since the scan last year. Patient to follow-up with me in a a couple of weeks after discharge. (7) Type 2 diabetes mellitus with other specified complication Status: Chronic Qualifiers: Diabetes mellitus moth exterminator insulin use: without correction use Qualified Code(s): E11.69 - Type 2 diabetes mellitus with other specified complication Category: Medical Code(s): E11.69 - Type 2 diabetes mellitus with other specified complication
[2022-02-22 14:07] VITALS: O2SAT 93
--- NOTE | 2022-02-22 14:08 | HMH.DCSUM ---
General - General Admission date:: 02/20/22 Discharge date: 02/22/22 HPI HPI: 81-year-old white male with severe dementia who has been on hospice care intermittently at home who presented to the emergency department yesterday with hematuria noticed by his when she was cleaning him after changing his adult diaper. In the emergency department he was found to have kidney stones and evidence of UTI, with swallowing well and was prescribed cefdinir and discharged home. Unfortunately, cefdinir has caused significant amounts of diarrhea. This is been extremely difficult for his to handle, he has become somewhat more somnolent and has appeared to be dehydrated. He was seen in our office, found to be dry, slightly tachycardic. And is admitted to hospital for UTI with failed outpatient therapy, hematuria, nephrolithiasis and for urology consultation. Hospital Course Hospital Course: 81-year-old male admitted for UTI, confusion, hematuria. Work-up concerning for some electrolyte disturbances. Treated for UTI. Urology consulted. Gradual improvement in urine over course of admission. Remained afebrile. Tolerating good p.o. intake. Back to baseline. PT/OT eval cleared to return home. Urine positive for Pseudomonas. Sensitivities guided antibiotic management. Urology consulted. Recs from admission: Gross hematuria in this 81-year-old white male with a history of nephrolithiasis. Patient's urine is clearing on antibiotics and I believe that is the source of his hematuria. He does have some stones in the course of his ureter but his ureter is chronically dilated from a previous large stone in the distal ureter that was treated. The stones have been in a stable position since the scan last year. Patient to follow-up with Urology in a a couple of weeks after discharge. Medically stable for discharge home. Examined on day of discharge. Complete course of antibiotics in the outpatient setting. Close follow-up in our office. Objective Vital signs: Temp Pulse Resp BP Pulse Ox 98.3 F 90 18 147/91 H 93 L 02/22/22 07:35 02/22/22 07:35 02/22/22 07:35 02/22/22 07:35 02/22/22 14:07 Narrative: - Constitutional no acute distress - *Routine HEENT Exam Head: Present: normocephalic Eye: Present: EOMI, PERRL ENT: Present: mucous membranes dry - *Routine Neck Exam Present: supple. Absent: lymphadenopathy - *Routine Respiratory Exam Present: CTA bilaterally - *Routine Cardiovascular Exam Present: RRR - *Routine Abdominal Exam Present: soft, normoactive bowel sounds, tenderness - *Routine Extremities Exam Absent: cyanosis, clubbing, edema - *Routine Skin Exam Present: warm. Absent: rash - *Routine Neurological Exam Present: alert; flat affect, Significant memory loss and expressive aphasia. Pleasant, smiles, shakes my hand. Results Labs on day of discharge: Labs from last 24 hours 02/22/22 02/22/22 02/22/22 06:25 06:25 05:20 WBC 11.5 H RBC 4.17 L Hgb 12.5 L Hct 39.2 L MCV 93.9 MCH 29.9 MCHC 31.8 RDW 14.7 Plt Count 288 MPV 8.3 Neut % (Auto) 68.8 Lymph % (Auto) 23.5 [place] % (Auto) 4.5 Eos % (Auto) 2.3 Baso % (Auto) 0.9 Neut # (Auto) 7.9 H Lymph # (Auto) 2.7 [place] # (Auto) 0.5 Eos # (Auto) 0.3 Baso # (Auto) 0.1 Sodium 136 Potassium 4.4 Chloride 106 Carbon Dioxide 25 Anion Gap 9.4 BUN 29 H Creatinine 1.80 H Estimated Creat Clear 36 Estimated GFR 36 L Est GFR ( Amer) 44 L Glucose 123 H POC Glucose 115 H Calcium 8.6 02/21/22 02/21/22 02/21/22 20:50 15:35 11:40 WBC RBC Hgb Hct MCV MCH MCHC RDW Plt Count MPV Neut % (Auto) Lymph % (Auto) [place] % (Auto) Eos % (Auto) Baso % (Auto) Neut # (Auto) Lymph # (Auto) [place] # (Auto) Eos # (Auto) Baso # (Auto) Sodium Potassium Chloride
--- NOTE | 2022-02-22 14:21 | HMH.PHAINT ---
I spoke with the patient and his today about his medication list. Went over the new medication they were to fern picker from their home pharmacy. Also went over the medications the patient was to continue. When we spoke there were no questions or concerns. Patient was provided a copy of the medication list.
[2022-02-23 01:20] LABS: POC Glucose,Bedside 142 (70-110)
--- NOTE | 2022-02-25 12:25 | CARE MANAGER ---
Addendum entered by Stephania Winn RN 02/27/22 11:50: Patient's , Julieth contacted me regarding patient. States that patient was still having problems with excess fluid and Dr. Yeager prescribed Lasix that he will finish tomorrow. We reviewed signs and symptoms to watch for and when to contact MD. Hospital bed had not been delivered yet so I contacted [facility] and they said it was delivered to the store today or yesterday and that the patient would hear from them today or tomorrow for delivery. Denies any other questions or concerns. KASSY Erickson Addendum entered by Stephania Winn RN 02/26/22 13:35: Attempted to contact patient again for post discharge call. Left voicemail mesage. KASSY Erickson Original Note: Attempted to contact patient for post discharge call. Left voicemail message. KASSY Erickson
== END 2022-02-22 14:55 | disposition home or self-care (01) ==
PROVIDERS: Nurse Practitioner Family; Admitting Provider Internal Medicine Adolescent Medicine; PCP Internal Medicine Adolescent Medicine; Visit Provider Internal Medicine Adolescent Medicine
DX: N39.0 Urinary tract infection, site not specified (principal); E86.0 Dehydration; Z20.822 Contact with and (suspected) exposure to COVID-19; E11.9 Type 2 diabetes mellitus without complications; Z79.4 Long term (current) use of insulin; F03.90 Unspecified dementia, unspecified severity, without behavioral disturbance, psychotic disturbance, mood disturbance, and anxiety; N17.9 Acute kidney failure, unspecified; N20.1 Calculus of ureter; F32.9 Major depressive disorder, single episode, unspecified; R31.9 Hematuria, unspecified; I11.0 Hypertensive heart disease with heart failure; I50.9 Heart failure, unspecified
CPT/HCPCS: G0378; G0379; 36415; 71046; 80048; 82962; 85025; 87040; 97116; 97162; 97165; 97530; 97535; C9803; J0696; U0003; U0005

== ENCOUNTER → 2022-03-08 14:37 | Outpatient (CLI) | payer MEDICARE, MEDICAID, SELFPAY ==
[2022-03-08 16:20] LABS: Prostate Specific Ag, Diagnost 0.277 ng/ml (0.0-4.0)
== END ==
PROVIDERS: PCP Internal Medicine Adolescent Medicine; Visit Provider Urology
DX: C61 Malignant neoplasm of prostate (principal)
CPT/HCPCS: 36415; 84153

== ENCOUNTER 2022-03-11 10:41 | Observation (INO) | payer MEDICARE, MEDICAID, SELFPAY ==
[2022-03-11] VITALS (10 sets, daily range): BP systolic 141–166; BP diastolic 73–102; PULSE 77–98; RESP 16–19; TEMP 36.8–37.1; O2SAT 96–99; BMI 27.1; BMI 26.1
--- NOTE | 2022-03-11 10:45 | XR_ITS ---
FINAL REPORT TECHNIQUE: Chest PA & Lateral CLINICAL HISTORY: SOB COMPARISON: February 21, 2022 FINDINGS: 2 views of the chest were performed. The heart is mildly enlarged. There is a small to moderate hiatal hernia. There are chronic changes in the lung bases. There is a small left pleural effusion. There is no pneumothorax. The bony thorax appears intact. IMPRESSION: Chronic changes, stable. Reviewed, Interpreted and Dictated by Bobby Etienne MD Transcribed by Nasir Graff Authenticated by Bobby Etienne MD on 03/11/2022 12:17:55 PM [facility]
--- NOTE | 2022-03-11 11:25 | HMH.EDUTC ---
[facility] [place] Clinical Impression: Dyspnea Qualifiers: Dyspnea type: unspecified Qualified Code(s): R06.00 - Dyspnea, unspecified Disposition: Still a Patient Condition on Discharge: Fair Referrals: Phil Yeager MD [Primary Care Provider] - Time of Disposition: 12:05 Medical Decision Making - Medical Records Medical records reviewed: No: I reviewed the patient's medical records. - Cristiano Inquiry Pt receiving controlled substance: No Vital Signs: 03/11/22 11:05 Temperature 98.7 F Temperature Source Oral Pulse Rate [Right Brachial] 78 Respiratory Rate 19 Blood Pressure [Right Arm] 141/73 H Blood Pressure Mean [Right Arm] 95 Blood Pressure Source [Right Arm] Automatic Cuff Blood Pressure Position [Right Arm] Sitting 02 Sat by Pulse Oximetry 98 Oxygen Delivery Method Room Air Orders (Tests/Meds): ORDERS Category Date Time Status CXR 2 view (NOT portable) [XR chest 2V] Stat Exams 03/11/22 10:45 Taken Medical Decision Narrative: He was transferred to the ER due to his history of chf, shortness of breath, and other chronic and acute issues. [facility] [place] HPI - General Stated complaint: soa Time Seen by Provider: 03/11/22 11:26 Mode of Arrival: Ambulatory Source of Information: Patient Limitations: No Limitations Description of Symptoms (Recalled from Triage Doc. by RN): PATIENT C/O COUGH AND SOA SINCE JANUARY. FAMILY REPORTS HE WAS ADMITTED TO HOSPITAL FOR UTI IN LATE JANUARY AND HAS HAD COUGH AND SOA SINCE THEN. HEENT Symptoms (Recalled from RN notes): No Resp Symptoms (Recalled from RN notes): Yes Skin Symptoms (Recalled from RN notes): No MS Symptoms (Recalled from RN notes): No Functional Status (Recalled from RN notes): WNL - History of Present Illness Provider Complaint: His states that the patient has had cough for the past 3 weeks. He seems like the cough and shortness of breath is getting worse. He has a history of dementia. - Related Data Home Medications Medication Instructions Recorded Confirmed aspirin 81 mg tablet,delayed 81 mg PO DAILY 12/04/17 03/11/22 release finasteride 5 mg tablet 5 mg PO DAILY 01/26/18 03/11/22 Donepezil HCl [Aricept 10mg 10 mg PO HS 02/20/20 03/11/22 tablet] allopurinol 100 mg tablet 100 mg PO DAILY tab 06/27/21 03/11/22 insulin degludec 100 unit/mL (3 7 unit SQ DAILY 06/27/21 03/08/22 mL) subcutaneous pen omeprazole 40 mg capsule,delayed 40 mg PO DAILY cap 01/01/22 03/11/22 release Losartan Potassium [Cozaar 100mg 100 mg PO DAILY 03/11/22 03/11/22 Tablets] Allergies Allergy/AdvReac Type Severity Reaction Status Date / Time pregabalin [From Lyrica] Allergy Verified 03/08/22 13:45 hydromorphone [From Dilaudid] AdvReac Verified 03/08/22 13:45 - Worker's Comp Is this a Worker's Comp case?: No [facility] History - Hepatitis A Screen Drug use history?: No High risk sexual behaviors?: No History of sexually transmitted infection?: No Currently employed?: No Childcare worker?: No Do you have indoor plumbing?: Yes Do you have electricity?: Yes Attestation statement:: This patient has been screened for Hepatitis A risk factors. I have reviewed the patient's past medical history: Yes Medical History: Reports:: Cancer (PROSTATE, COLON), Congestive Heart Failure, Coronary Artery Disease, Dementia, Depression, Diabetes Mellitus Type 2, Gastroesophageal Reflux Disease(GERD), Hyperlipidemia, Hypertension, Kidney Stones, Myocardial Infarction, Urinary Tract Infection Denies:: Diabetes Mellitus Type 1, Internal Pacemaker, Lung Disease, MRSA, Seizures Other Medical History: Reports: Anemia, Arthritis, Radiation Therapy. Denies: Blood Transfusion Reaction Comment: BPH, Mild cognitive impairment, episode of major depression disorder, sleep disturbance Other Surgeries: Yes: No Previous Surgery, Appendectomy, Cancer Surgery, Cardiac Surgery, Colonoscopy, Coronary Stent, Other. No: Pacemaker Amputation: No Fractures: Yes (left leg
--- NOTE | 2022-03-11 11:56 | PC.NURSE ---
PATIENT SENT TO ER PER Junito VINCENT APRN FOR FUTHER EVALUATION. REPORT GIVEN TO Pk HALL RN
--- NOTE | 2022-03-11 12:12 | ECG_ITS ---
APPROVED REPORT Exam: Resting ECG HR:78 bpm ECG Measurements Heart Rate 78 AXES SD 146 P 12 QRSd 148 QRS 8 QT 421 T -55 QTc 455 Conclusion SINUS RHYTHM LEFT BUNDLE BRANCH BLOCK [120+ ms QRS DURATION, 80+ ms Q/S IN V1/V2, 85+ ms R IN I/aVL/V5/V6] ABNORMAL ECG UNCONFIRMED REPORT Electronically signed by : Martínez Castellon MD 03/11/2022 15:57:33
--- NOTE | 2022-03-11 12:51 | CT_ITS ---
FINAL REPORT TECHNIQUE: Postcontrast axial images of the chest were performed in a CTA protocol. This study was performed with techniques to keep radiation doses as low as reasonably achievable, (ALARA). Individualized dose reduction technique using automated exposure control or adjustment of mA and/or kV according to the patient's size were employed. CLINICAL HISTORY: Shortness of breath, high risk for pe COMPARISON: 02/19/2022 FINDINGS: The heart is normal in size. There is moderate mediastinal adenopathy. Right paratracheal lymph node is seen measuring up to 2.5 cm. Pre-vascular lymph node measures up to 2.1 cm. There are moderate bilateral pleural effusions. There is no pericardial effusion.. The thoracic aorta is normal in caliber with no focal aneurysm or dissection identified. There is no filling defect to suggest pulmonary embolism. There is bibasilar consolidation with overlying atelectasis. Limited imaging of the upper abdomen demonstrates marked left hydronephrosis and cholelithiasis. IMPRESSION: No evidence for PE on this exam. Moderate pleural effusions with bibasilar consolidation and overlying atelectasis. Moderate mediastinal adenopathy. Marked left hydronephrosis. Cholelithiasis. Reviewed, Interpreted and Dictated by Bobby Etienne MD Transcribed by Cydney Latham Authenticated by Bobby Etienne MD on 03/11/2022 02:41:37 PM [facility]
[2022-03-11 12:59] LABS: Basophils # 0.1 K/mm3 (0-0.2); Basophils % 0.8 % (0.1-2.0); Eosinophils # 0.2 K/mm3 (0.0-0.4); Eosinophils % 2.4 % (0.1-12.0); Hematocrit 40.7 % (42.0-52.0); Hemoglobin 13.2 g/dL (14.1-18.0); Lymphocytes # 1.5 K/mm3 (0.7-4.5); Lymphocytes % 18.4 % (10-50); Mean Corpuscular HGB Conc 32.4 g/dL (31.8-35.4); Mean Corpuscular Hemoglobin 30.3 pg (27.0-31.2); Mean Corpuscular Volume 93.4 fl (80-94); Mean Platelet Volume 8.5 fl (7.4-10.4); Monocytes # 0.3 K/mm3 (0.1-1.0); Monocytes % 3.6 % (1.7-9.3); Neutrophils # 6.1 K/mm3 (1.8-7.8); Neutrophils % 74.7 % (37.0-80.0); Platelet Count 333 K/mm3 (142-424); Red Blood Count 4.35 M/mm3 (4.60-6.20); Red Cell Distribution Width 14.9 % (11.5-17.5); White Blood Count 8.2 K/mm3 (4.8-10.8)
[2022-03-11 13:04] LABS: Alanine Aminotransferase 16 U/L (12-78); Albumin Level 3.5 g/dl (3.5-5.0); Alkaline Phosphatase 89 U/L (38-126); Anion Gap 10.8 mEq/L (5-15); Aspartate Amino Transferase 27 U/L (17-59); Bilirubin,Total 0.7 mg/dl (0.2-1.3); Blood Urea Nitrogen 22 mg/dl (9-20); Calcium 8.4 mg/dl (8.4-10.2); Carbon Dioxide 24 mmol/L (22.0-30.0); Chloride 107 mmol/L (98-107); Creatinine Clearance Estimated 40 mL/min (50-200); Estimated Glomerular Filt Rate 42 ml/min (>60); GFR (African American) 50 ML/MIN (>60); Globulin 3.5 g/dL (1.3-3.2); Glucose 232 mg/dl (74-100); Potassium 4.8 mmoL/L (3.5-5.1); Sodium 137 mmol/L (136-145)
[2022-03-11 13:09] LABS: C-Reactive Protein 12.8 mg/L (0-4)
[2022-03-11 13:19] LABS: NT Pro Brain Natriuretic Pep. 11300 pg/mL (0-450); Troponin I 0.07 ng/ml (0.00-0.034)
[2022-03-11 13:23] LABS: T4 (Thyroxine) 11.8 ug/dl (5.53-11.0)
[2022-03-11 13:37] LABS: Thyroid Stimulating Hormone 3.35 uIU/mL (0.465-4.68)
--- NOTE | 2022-03-11 15:02 | HMH.EDGENADL ---
ED Disposition Clinical Impression: Dyspnea Qualifiers: Dyspnea type: shortness of breath Qualified Code(s): R06.02 - Shortness of breath Heart failure Qualifiers: Heart failure type: unspecified Heart failure chronicity: acute on chronic Qualified Code(s): I50.9 - Heart failure, unspecified Disposition: Still a Patient Condition on Discharge: [facility] - Critical Care Critical Care Time: No Attestation: On 03/11/22, the high probability of a clinically significant, sudden or life threatening deterioration of the following system(s) required my full and direct attention, intervention and personal management. The time I documented below is in addition to time spent performing reported procedures but includes the following listed in this critical care notation. Medical Decision Making - Medical Records Medical records reviewed: Yes: I reviewed the patient's medical records. - Cristiano Inquiry Pt receiving controlled substance: No Vital Signs: 03/11/22 11:05 03/11/22 14:00 03/11/22 14:30 Temperature 98.7 F Temperature Source Oral Pulse Rate 98 H 81 Pulse Rate [Right Brachial] 78 Respiratory Rate 19 16 16 Blood Pressure 150/93 H 152/80 H Blood Pressure [Right Arm] 141/73 H Blood Pressure Mean 109 103 Blood Pressure Mean [Right Arm] 95 Blood Pressure Source [Right Arm] Automatic Cuff Blood Pressure Position [Right Arm] Sitting 02 Sat by Pulse Oximetry 98 99 98 Oxygen Delivery Method Room Air 03/11/22 15:00 03/11/22 15:30 03/11/22 16:00 Temperature Temperature Source Pulse Rate 82 81 84 Pulse Rate [Right Brachial] Respiratory Rate 18 18 18 Blood Pressure 154/96 H 166/102 H 162/85 H Blood Pressure [Right Arm] Blood Pressure Mean 115 125 112 Blood Pressure Mean [Right Arm] Blood Pressure Source [Right Arm] Blood Pressure Position [Right Arm] 02 Sat by Pulse Oximetry 99 99 99 Oxygen Delivery Method 03/11/22 16:30 03/11/22 17:00 03/11/22 20:04 Temperature 98.7 F Temperature Source Pulse Rate 82 95 H 80 Pulse Rate [Right Brachial] Respiratory Rate 18 16 16 Blood Pressure 155/83 H 166/86 H 164/78 H Blood Pressure [Right Arm] Blood Pressure Mean 107 112 Blood Pressure Mean [Right Arm] Blood Pressure Source [Right Arm] Blood Pressure Position [Right Arm] 02 Sat by Pulse Oximetry 99 96 Oxygen Delivery Method - Lab Data Lab results reviewed: Yes: I reviewed the patient's lab results. Lab Results 03/11/22 12:27: WBC 8.2, RBC 4.35 L, Hgb 13.2 L, Hct 40.7 L, MCV 93.4, MCH 30.3, MCHC 32.4, RDW 14.9, Plt Count 333, MPV 8.5, Neut % (Auto) 74.7, Lymph % (Auto) 18.4, [place] % (Auto) 3.6, Eos % (Auto) 2.4, Baso % (Auto) 0.8, Neut # (Auto) 6.1, Lymph # (Auto) 1.5, [place] # (Auto) 0.3, Eos # (Auto) 0.2, Baso # (Auto) 0.1 03/11/22 12:27: Sodium 137, Potassium 4.8, Chloride 107, Carbon Dioxide 24, Anion Gap 10.8, BUN 22 H, Creatinine 1.60 H, Estimated Creat Clear 40, Estimated GFR 42 L, Est GFR ( Amer) 50 L, Glucose 232 H, Calcium 8.4, Total Bilirubin 0.7, AST 27, ALT 16, Alkaline Phosphatase 89, Troponin I 0.07 H, C-Reactive Protein 12.8 H, NT-Pro-B Natriuret Pep 76907 H, Total Protein 7.0, Albumin 3.5, Globulin 3.5 H, Albumin/Globulin Ratio 1.0 L, TSH 3.35, Thyroxine (T4) 11.8 H 03/11/22 15:28: SARS-CoV-2 (PCR) Not detected, Influenza A Untype (PCR) Not detected, Influenza Type B (PCR) Not detected 03/11/22 16:00: Troponin I 0.09 H 03/11/22 19:00: Troponin I 0.09 H 03/11/22 19:21: Lactate 1.6 Result diagrams: 03/11/22 12:27 03/11/22 12:27 Orders (Tests/Meds): ED MEDICATIONS Generic Name Dose Route Start Last Admin Trade Name Freq PRN Reason Stop Dose Admin Acetaminophen 650 mg 03/11/22 20:03 Acetaminophen 325mg Tab PO 04/10/22 20:02 Q4HP PRN Fever or Mild Pain Aspirin 81 mg 03/12/22 09:00 Aspirin Ec 81mg Tablet PO 04/11/22 08:59 DAILY CARLOS Donepezil HCl 10 mg 03/11/22 21:00 Donepezil 10mg Tab PO
[2022-03-11 15:39] LABS: Coronavirus 19, PCR Not Detected (NotDetected); Influenza A, PCR Not Detected (NotDetected); Influenza B, PCR Not Detected (NotDetected)
--- NOTE | 2022-03-11 16:25 | PC.NURSE ---
2ND TROPONIN DRAWN. UPDATED PT ON POC. NO NEW NEEDS.
--- NOTE | 2022-03-11 16:41 | PC.NURSE ---
PT AND GIVEN DRINKS. ADVISED THEM MD WOULD BE IN SOON POSSIBLE
[2022-03-11 16:46] LABS: Troponin I 0.09 ng/ml (0.00-0.034)
--- NOTE | 2022-03-11 17:38 | PC.NURSE ---
while changing pt wet bedding, was on phone with her daughter and suddenly became angry with us, demanding that he be sent to his polls or surveys interviewer at [facility]. advised she went in to speak with pt and .
--- NOTE | 2022-03-11 18:05 | PC.NURSE ---
2385 BED ASSIGNMENT REQUESTED ROOM 208, ALL STAFF NOTIFIED
[2022-03-11 19:42] LABS: Troponin I 0.09 ng/ml (0.00-0.034)
--- NOTE | 2022-03-11 19:57 | PC.NURSE ---
patient up to floor via stretcher @ this time
[2022-03-11 20:03] LABS: Lactic Acid 1.6 mmol/L (0.7-2.1)
--- NOTE | 2022-03-11 20:03 | XR_ITS ---
PROCEDURE INFORMATION: Exam: XR Chest Exam date and time: 03/11/2022 8:29 PM Age: 81 years old Clinical indication: Condition or disease; Other: Fluid overload; Additional info: Volume overload TECHNIQUE: Imaging protocol: XR of the chest. Views: 1 view. COMPARISON: CR XR CHEST 2V 03/11/2022 10:47 AM FINDINGS: Lungs: See Pleural spaces finding. Pleural spaces: There is increase in the left pleural effusion. Patchy regions of opacification are now demonstrated at both lung bases. There is near complete lack of aeration of the left lower lobe. Mild redistribution of the pulmonary vasculature is present. Heart/Mediastinum: Unremarkable. No cardiomegaly. Bones/joints: Unremarkable. IMPRESSION: 1. Increased left pleural effusion. Could not exclude small right pleural effusion. 2. Bilateral lower lobe infiltrates. Findings significantly progressed compared with the study earlier on this date. Findings compatible with history of fluid overload. Clinically correlate to exclude congestive failure.
[2022-03-12] VITALS: BP 160/73; PULSE 88; RESP 17; TEMP 37; O2SAT 95
[2022-03-12 05:40] VITALS: BMI 26.1
[2022-03-12 06:20] LABS: Chloride 109 mmol/L (98-107); Sodium 137 mmol/L (136-145)
[2022-03-12 06:23] LABS: Blood Urea Nitrogen 20 mg/dl (9-20); Calcium 7.8 mg/dl (8.4-10.2); Carbon Dioxide 24 mmol/L (22.0-30.0); Creatinine Clearance Estimated 36 mL/min (50-200); Estimated Glomerular Filt Rate 39 ml/min (>60); GFR (African American) 47 ML/MIN (>60); Glucose 125 mg/dl (74-100)
[2022-03-12 06:26] LABS: Basophils # 0.1 K/mm3 (0-0.2); Basophils % 1.1 % (0.1-2.0); Eosinophils # 0.3 K/mm3 (0.0-0.4); Eosinophils % 3.8 % (0.1-12.0); Hematocrit 37.4 % (42.0-52.0); Hemoglobin 12.1 g/dL (14.1-18.0); Lymphocytes # 2.3 K/mm3 (0.7-4.5); Lymphocytes % 27.9 % (10-50); Mean Corpuscular HGB Conc 32.4 g/dL (31.8-35.4); Mean Corpuscular Hemoglobin 29.7 pg (27.0-31.2); Mean Corpuscular Volume 91.6 fl (80-94); Monocytes # 0.4 K/mm3 (0.1-1.0); Monocytes % 5.2 % (1.7-9.3); Neutrophils # 5.2 K/mm3 (1.8-7.8); Platelet Count 303 K/mm3 (142-424); Red Blood Count 4.08 M/mm3 (4.60-6.20); White Blood Count 8.4 K/mm3 (4.8-10.8)
--- NOTE | 2022-03-12 06:35 | PC.NURSE ---
Pt a&o x3, pleasant and cooperative. Pt does not voice needs/concerns to staff but will answer simple questions when asked. Pt needs to be encouraged to drink/turn. in room. Call light within reach.
--- NOTE | 2022-03-12 07:15 | HMH.PHAVTE ---
[facility] Pharmacy VTE Monitoring - Patient Demographics Admission date: 03/12/22 Report Date: 03/12/22 Time: 07:16 Allergies/Adverse Reactions: Patient Allergies pregabalin [From Lyrica] Allergy (Verified 03/08/22 13:45) hydromorphone [From Dilaudid] Adverse Reaction (Verified 03/08/22 13:45) Height: 1.7 m Weight: 75.523 kg Patient Problems: Current Active Problems Dyspnea (Acute) Heart failure (Acute) - VTE Risk Labs: VTE Related Lab Results Hgb 12.1 g/dL (14.1-18.0) L 03/12/22 05:55 Hct 37.4 % (42.0-52.0) L 03/12/22 05:55 Plt Count 303 K/mm3 (142-424) 03/12/22 05:55 BUN 20 mg/dl (9-20) 03/12/22 05:55 Creatinine 1.70 mg/dl (0.66-1.25) H 03/12/22 05:55 Estimated Creat Clear 36 mL/min (50-200) 03/12/22 05:55 Clinical Trial Participant: No - Prophylaxis VTE Prophylaxis Ordered?: Yes Types of VTE Prophylaxis: TEDS Knee High
--- NOTE | 2022-03-12 07:21 | HMH.HP ---
*Admission Date: 03/12/22 *Chief complaint: short of breath *History of present illness: Mr. Wright is a pleasant 81-year-old male with dementia, CKD, history of colon cancer status post partial colectomy who presented to the ER yesterday due to worsening dyspnea at rest and with exertion. On arrival, patient's blood pressure is slightly elevated but had no oxygen requirement. Initial work-up concerning for CHF exacerbation with elevated BNP. Chest imaging showing bilateral effusions. Patient has no complaints however family reports symptom changes for him. Patient was admitted for further management and work-up of his dyspnea. He has remained stable overnight with no oxygen requirement. Sitting upright in bedside chair eating breakfast this morning on exam. Daughter and at bedside. States he has been breathing more heavily and has less exercise tolerance since last admission for UTI. Has had daily cough but it is nonproductive. No fever, nausea, vomiting. Stools at baseline. [facility] History I have reviewed the patient's past medical history: Yes Medical History: Reports:: Cancer (PROSTATE, COLON), Congestive Heart Failure, Coronary Artery Disease, Dementia, Depression, Diabetes Mellitus Type 2, Gastroesophageal Reflux Disease(GERD), Hyperlipidemia, Hypertension, Kidney Stones, Myocardial Infarction, Urinary Tract Infection Denies:: Diabetes Mellitus Type 1, Internal Pacemaker, Lung Disease, MRSA, Seizures *Have you ever received a pneumonia vaccine?: No *Have you received a flu vaccine this season?: Yes Other Medical History: Reports: Anemia, Arthritis, Radiation Therapy. Denies: Blood Transfusion Reaction Other Surgeries: Yes: No Previous Surgery, Appendectomy, Cancer Surgery, Cardiac Surgery, Colonoscopy, Coronary Stent, Other. No: Pacemaker Amputation: No Fractures: Yes (left leg) - *Social History Last grade of school completed: 9th or 10th Smoking Status: Never smoker Tobacco Type: cigarettes Alcohol Intake: never Alcohol Intake Frequency:: other Substance Use Type: denies use *Occupational Status:: retired, disabled Housing: house Household Members: spouse *Travel in the last 8 weeks: None - Psychiatric History Pschychiatric History:: Reports:: Depression Family Hx:: Coronary Artery Disease, Diabetes, Heart Attack Review of Systems - Review of Systems Review of systems:: pertinent systems reviewed and negative unless documented below (14 point review of systems performed, pertinent positives and negatives as per HPI) - *Neurologic Reports other (R sided weakness, baseline. Aphasia. No new neurologic sx) Meds Home Medications Medication Instructions Recorded Confirmed Type aspirin 81 mg tablet,delayed 81 mg PO DAILY 12/04/17 03/12/22 History release finasteride 5 mg tablet 5 mg PO DAILY 01/26/18 03/11/22 History Donepezil HCl [Aricept 10mg 10 mg PO HS 02/20/20 03/11/22 History tablet] allopurinol 100 mg tablet 100 mg PO DAILY tab 06/27/21 03/11/22 History insulin degludec 100 unit/mL (3 7 unit SQ DAILY 06/27/21 03/11/22 History mL) subcutaneous pen omeprazole 40 mg capsule,delayed 40 mg PO DAILY cap 01/01/22 03/11/22 History release Losartan Potassium [Cozaar 100mg 100 mg PO DAILY 03/11/22 03/11/22 History Tablets] Vit C/E/Zn/Coppr/Lutein/Zeaxan 1 each PO BID 03/11/22 03/11/22 History [Preservision Areds 2 Chew Tab] Fluticasone Propionate [Flonase 1 spray NOSTRIL-B BID 03/12/22 03/12/22 History 50mcg nasal spray 16gm] Allergies Allergy/AdvReac Type Severity Reaction Status Date / Time pregabalin [From Lyrica] Allergy Verified 03/08/22 13:45 hydromorphone [From Dilaudid] AdvReac Verified 03/08/22 13:45 Exam Vital signs and Labs for Last 24 Hours: Temp Pulse Resp BP Pulse Ox 98.6 F 88 17 160/73 H 95 03/12/22 00:00 03/12/22 00:00 03/12/22 00:00 03/12/22 00:00 03/12/22 00:00 Laboratory Results - last 24 hr 03/11/22 12:27: WBC 8.2, RBC 4.3
[2022-03-12 07:54] VITALS: BMI 26.1
[2022-03-12 08:00] VITALS: BP 156/64; PULSE 80; PULSE 88; RESP 24; TEMP 36.6; O2SAT 94
--- NOTE | 2022-03-12 09:25 | HMH.PHAINT ---
Home medication list was verified using the patient's PBM history, recent med-rec from visit with one of our providers, and information the patient provided.
--- NOTE | 2022-03-12 09:42 | PC.NURSE ---
Dr. Rod notified
[2022-03-12 12:00] VITALS: PULSE 80
--- NOTE | 2022-03-12 13:16 | HMH.GSCON ---
*Admission Date: 03/12/22 *Reason for consult:: Pleural effusion *History of present illness: This is an 81-year-old gentleman seen in consultation Dr. Yeager for possible thoracentesis. He was recently diagnosed with bilateral pleural effusion. Most recent x-ray shows increased left-sided effusion. Review of Systems - Review of Systems Review of systems:: unable to obtain - *Neurologic Reports other (R sided weakness, baseline. Aphasia. No new neurologic sx) [facility] History Medical History: Reports:: Cancer (PROSTATE, COLON), Congestive Heart Failure, Coronary Artery Disease, Dementia, Depression, Diabetes Mellitus Type 2, Gastroesophageal Reflux Disease(GERD), Hyperlipidemia, Hypertension, Kidney Stones, Myocardial Infarction, Urinary Tract Infection Denies:: Diabetes Mellitus Type 1, Internal Pacemaker, Lung Disease, MRSA, Seizures *Have you ever received a pneumonia vaccine?: No *Have you received a flu vaccine this season?: Yes Other Medical History: Reports: Anemia, Arthritis, Radiation Therapy. Denies: Blood Transfusion Reaction Other Surgeries: Yes: No Previous Surgery, Appendectomy, Cancer Surgery, Cardiac Surgery, Colonoscopy, Coronary Stent, Other. No: Pacemaker Amputation: No Fractures: Yes (left leg) - *Social History Last grade of school completed: 9th or 10th Smoking Status: Never smoker Tobacco Type: cigarettes Alcohol Intake: never Alcohol Intake Frequency:: other Substance Use Type: denies use *Occupational Status:: retired, disabled Housing: house Household Members: spouse *Travel in the last 8 weeks: None - Psychiatric History Pschychiatric History:: Reports:: Depression Family Hx:: Coronary Artery Disease, Diabetes, Heart Attack Meds Home Medications Medication Instructions Recorded Confirmed Type aspirin 81 mg tablet,delayed 81 mg PO DAILY 12/04/17 03/12/22 History release finasteride 5 mg tablet 5 mg PO DAILY 01/26/18 03/11/22 History Donepezil HCl [Aricept 10mg 10 mg PO HS 02/20/20 03/11/22 History tablet] allopurinol 100 mg tablet 100 mg PO DAILY tab 06/27/21 03/11/22 History insulin degludec 100 unit/mL (3 7 unit SQ DAILY 06/27/21 03/11/22 History mL) subcutaneous pen omeprazole 40 mg capsule,delayed 40 mg PO DAILY cap 01/01/22 03/11/22 History release Losartan Potassium [Cozaar 100mg 100 mg PO DAILY 03/11/22 03/11/22 History Tablets] Vit C/E/Zn/Coppr/Lutein/Zeaxan 1 each PO BID 03/11/22 03/11/22 History [Preservision Areds 2 Chew Tab] Fluticasone Propionate [Flonase 1 spray NOSTRIL-B BID 03/12/22 03/12/22 History 50mcg nasal spray 16gm] Allergies Allergy/AdvReac Type Severity Reaction Status Date / Time pregabalin [From Lyrica] Allergy Verified 03/08/22 13:45 hydromorphone [From Dilaudid] AdvReac Verified 03/08/22 13:45 Exam Vital signs and Labs for Last 24 Hours: Temp Pulse Resp BP Pulse Ox 97.8 F 88 24 156/64 H 94 L 03/12/22 08:00 03/12/22 08:00 03/12/22 08:00 03/12/22 08:00 03/12/22 08:00 Laboratory Results - last 24 hr 03/11/22 12:27: Troponin I 0.07 H, NT-Pro-B Natriuret Pep 84177 H, TSH 3.35, Thyroxine (T4) 11.8 H 03/11/22 15:28: SARS-CoV-2 (PCR) Not detected, Influenza A Untype (PCR) Not detected, Influenza Type B (PCR) Not detected 03/11/22 16:00: Troponin I 0.09 H 03/11/22 19:00: Troponin I 0.09 H 03/11/22 19:21: Lactate 1.6 03/12/22 05:55: WBC 8.4, RBC 4.08 L, Hgb 12.1 L, Hct 37.4 L, MCV 91.6, MCH 29.7, MCHC 32.4, RDW 15.0, Plt Count 303, MPV 8.0, Neut % (Auto) 62.0, Lymph % (Auto) 27.9, [place] % (Auto) 5.2, Eos % (Auto) 3.8, Baso % (Auto) 1.1, Neut # (Auto) 5.2, Lymph # (Auto) 2.3, [place] # (Auto) 0.4, Eos # (Auto) 0.3, Baso # (Auto) 0.1 03/12/22 05:55: Sodium 137, Potassium 4.0, Chloride 109 H, Carbon Dioxide 24, Anion Gap 8.0, BUN 20, Creatinine 1.70 H, Estimated Creat Clear 36, Estimated GFR 39 L, Est GFR ( Amer) 47 L, Glucose 125 H D, Calcium 7.8 L I & O for Last 24 hours: Intake & Output 03/10/22
--- NOTE | 2022-03-12 13:18 | XR_ITS ---
FINAL REPORT CLINICAL HISTORY: s/p left thoracentesis; possible pneumothorax COMPARISON: March 11, 2022 FINDINGS: SINGLE VIEW CHEST. There is mild cardiomegaly. The mediastinum is unremarkable. The lungs are underinflated. There are chronic changes in the lung bases. There are small bilateral pleural effusions which have decreased in size. There is no definite pneumothorax. IMPRESSION: No definite pneumothorax. Small bilateral pleural effusions which have decreased in size. Reviewed, Interpreted and Dictated by Bobby Etienne MD Transcribed by Jacquelyn Calero Authenticated by Bobby Etienne MD on 03/12/2022 02:04:21 PM [facility]
--- NOTE | 2022-03-12 13:53 | HMH.OPNOTE ---
Date of procedure: 03/12/22 Pre-op Diagnosis:: Left pleural effusion Post-op Diagnosis:: Same Procedure performed:: Left thoracentesis (limited) Surgeon:: Yannick Rod MD Anesthesia: local Estimated blood loss (mL): 5 Operative findings:: Sanguinous/clotted fluid at site of insertion Minimal fluid obtained Operative note:: After informed consent was obtained the patient was maintained in a seated position. Auscultation was utilized to aixa the site for insertion. The left back was prepped and draped in a sterile fashion. After infiltration local anesthetic a small stab incision was made at the predetermined site. The thoracentesis catheter was carefully advanced. A small amount of sanguinous/clotted fluid was aspirated. Maneuvering in all directions did not facilitate access of a large pocket. The decision was made to forego additional efforts. The fluid that was obtained was sent for cytology. Chest x-ray pending. Condition: stable Disposition: no change Specimens:: Fluid for cytology Complications:: No immediate. Chest x-ray pending.
[2022-03-12 16:00] VITALS: BP 148/61; PULSE 80; RESP 17; TEMP 36.8; O2SAT 98
[2022-03-12 16:51] LABS: POC Glucose,Bedside 246 (70-110)
[2022-03-12 20:00] VITALS: O2SAT 98
[2022-03-12 20:55] LABS: POC Glucose,Bedside 113 (70-110)
--- NOTE | 2022-03-12 22:21 | CA_ITS ---
APPROVED REPORT EXAM: Comprehensive 2D, Doppler, and color-flow Echocardiogram Field Service Technician: Venessa Cole CRT Ht: 5 ft 6 in Wt: 166lbs BSA: 1.85 BP: 164/78 mmHg Indications: Shortness of Breath, CVA/TIA, Diabetes, Fatigue, Hyperlipidemia, Hypertension/HDD, prostate ca, prostate ca, radiation therapy, old mi 2D Dimensions LVOT 1.81 cm (M/F) 1.5-2.5 LA Volume 55.90 mL LA Volume Index 30.20 mL/m2 (M/F) 16-34 M-Mode Dimensions RVDd 2.15 cm (0.9-2.6) LA Diam 4.18 cm (1.9-4.0) LVDd 4.86 cm (3.5-5.7) Ao Diam 3.91 cm (2.0-3.7) LVDs 3.99 cm (3.5-5.7) IVSd 1.62 cm (0.6-1.1) PWd 1.25 cm (0.6-1.1) EF (Teich) 37.10% FS 17.90% EDV (Teich) 110.70 mL TAPSE 1.87 (<1.7) ESV (Teich) 69.60 mL LV Diastology E Decel Time 113.00 (160-240 msec) E/A Ratio 1.72 MED E' 1.70 (< 7 cm/sec) MED A' 4.10 cm/s E'/MED E' Ratio 63.71 (>14) LAT E' 8.50 (<10 cm/sec) LAT A' 4.80 cm/s E/LAT E' Ratio 12.74 (>14) Aortic Valve AO Peak GR. 4.90 mmHg Mitral Valve MV E Max Jey. 108.00 (40-130 cm/s) MV A Velocity 63.00 (40-130 cm/s) E/A Ratio 1.72 MV Decel. Time 113.00 (160-240 ms) MV PHT 33.00 ms Pulmonary Valve PV Peak Velocity 197.00 (50-150 cm/s) Tricuspid Valve TR P. Velocity 229.00 cm/s RAP Estimate 10.00 mmHg RVSP 31.00 mmHg Left Ventricle Left atrium is mildly enlarged, left ventricle is mildly dilated, severe reduced left ventricular systolic function, estimated ejection fraction 25%, there is marked hypokinesis involving mid to distal septum, anterior and anterior apical noyola. Diastolic parameters are inconclusive. Right Ventricle Right atrium and right ventricle are normal size and contractility. Aortic Valve Aortic valve is thickened and calcified without Doppler evidence of aortic stenosis or aortic insufficiency. Mitral Valve Mitral valve has mitral annular calcification, leaflets are minimally thickened, there is mild to moderate mitral regurgitation. Tricuspid Valve Tricuspid valve is grossly normal, there is mild tricuspid regurgitation, tricuspid regurgitation jet velocity is inadequate for calculation of the right ventricular systolic pressure. Pulmonic Valve Pulmonic valve is poorly visualized. Great Vessels Aortic root is normal size. Inferior vena cava is normal size with normal inspiratory collapse. Pericardium No significant pericardial effusion noted. Conclusion 1. Dilated left ventricle, severe reduced left ventricular systolic function, visually estimated ejection fraction 25% with multiple segmental wall motion abnormalities described above, diastolic parameters are inconclusive. 2. Thickened and calcified aortic valve without aortic stenosis or aortic insufficiency. 3. Mild to moderate mitral and mild tricuspid regurgitation. 4. No significant pericardial effusion 5. Inferior vena cava is poorly visualized. Electronically signed by : Ace Hall MD 03/12/2022 19:57:41
[2022-03-12 23:04] VITALS: PULSE 92
[2022-03-13] VITALS: BP 113/60; PULSE 102; PULSE 88; RESP 16; TEMP 37.1; O2SAT 96
[2022-03-13 00:45] VITALS: O2SAT 85
[2022-03-13 00:49] VITALS: O2SAT 92
[2022-03-13 04:00] VITALS: BP 131/72; PULSE 100; PULSE 104; RESP 18; TEMP 37.2; O2SAT 91
--- NOTE | 2022-03-13 04:57 | PC.NURSE ---
Pt alert to person, place, situation. 02 sat dropped to 85% while pt was in deep sleep t/o night. When pt awoke, o2 went to 92%. 2 L nc was placed on pt while he was sleeping. Pt is currently awake on RA, tolerating well with sats >90%. No complaints voiced to staff. Daughter in room. Call light within reach.
[2022-03-13 05:02] LABS: POC Glucose,Bedside 131 (70-110)
[2022-03-13 06:13] LABS: Basophils # 0.1 K/mm3 (0-0.2); Basophils % 1.1 % (0.1-2.0); Eosinophils # 0.3 K/mm3 (0.0-0.4); Eosinophils % 2.5 % (0.1-12.0); Hematocrit 37.9 % (42.0-52.0); Hemoglobin 12.4 g/dL (14.1-18.0); Lymphocytes # 1.8 K/mm3 (0.7-4.5); Lymphocytes % 16.8 % (10-50); Mean Corpuscular HGB Conc 32.7 g/dL (31.8-35.4); Mean Corpuscular Hemoglobin 29.7 pg (27.0-31.2); Monocytes # 0.5 K/mm3 (0.1-1.0); Monocytes % 4.3 % (1.7-9.3); Neutrophils # 8.2 K/mm3 (1.8-7.8); Neutrophils % 75.4 % (37.0-80.0); Platelet Count 288 K/mm3 (142-424); Red Blood Count 4.17 M/mm3 (4.60-6.20); Red Cell Distribution Width 14.9 % (11.5-17.5); White Blood Count 10.9 K/mm3 (4.8-10.8)
[2022-03-13 06:14] LABS: Chloride 108 mmol/L (98-107); Sodium 137 mmol/L (136-145)
[2022-03-13 06:15] LABS: Potassium 4.1 mmoL/L (3.5-5.1)
[2022-03-13 06:17] VITALS: BMI 26.1
[2022-03-13 06:18] LABS: Anion Gap 10.1 mEq/L (5-15); Blood Urea Nitrogen 20 mg/dl (9-20); Calcium 7.9 mg/dl (8.4-10.2); Carbon Dioxide 23 mmol/L (22.0-30.0); Creatinine Clearance Estimated 34 mL/min (50-200); Estimated Glomerular Filt Rate 36 ml/min (>60); GFR (African American) 44 ML/MIN (>60); Glucose 130 mg/dl (74-100)
--- NOTE | 2022-03-13 06:30 | XR_ITS ---
PROCEDURE INFORMATION: Exam: XR Chest Exam date and time: 03/13/2022 4:29 AM Age: 81 years old Clinical indication: Screening exam; Other screening; Prior surgery; Additional info: Monitor for pneumo/thoracentesis complications TECHNIQUE: Imaging protocol: XR of the chest. Views: 1 view. COMPARISON: CR XR CHEST PORTABLE 03/12/2022 1:29 PM FINDINGS: Lungs: Prominence of the pulmonary vasculature is seen. Pleural spaces: Bilateral right greater than left pleural effusions are noted. Heart/Mediastinum: The heart is prominent. Bones/joints: Unremarkable. IMPRESSION: Findings of volume overload unchanged from prior.
--- NOTE | 2022-03-13 07:57 | P.PN_ITS ---
Subjective Narrative: The patient is currently resting. The patient's family has decided to forego further diagnostic and/or therapeutic interventions. The ultrasound-guided thoracentesis ordered for this morning has been canceled. Progress Note: A&P (1) Bilateral pleural effusion Status: Acute Assessment and plan: Bedside thoracentesis attempted yesterday with removal of very small amount of sanguinous fluid. Ultrasound-guided thoracentesis ordered; however, this procedure has been canceled secondary to the patient's family's wishes. (2) Dyspnea Status: Acute (3) Heart failure Status: Acute (4) Cholelithiasis Problem details: Seemingly asymptomatic gallstones. Status: Chronic (5) Type 2 diabetes mellitus with complication, with long-term current use of insulin Status: Chronic (6) Dementia Status: Chronic Exam Vital signs and Labs for Last 24 Hours: Temp Pulse Resp BP Pulse Ox 98.9 F 104 H 18 131/72 91 L 03/13/22 04:00 03/13/22 04:00 03/13/22 04:00 03/13/22 04:00 03/13/22 04:00 Laboratory Results - last 24 hr 03/12/22 16:41: POC Glucose 246 H 03/12/22 20:45: POC Glucose 113 H 03/13/22 04:54: POC Glucose 131 H 03/13/22 05:39: WBC 10.9 H D, RBC 4.17 L, Hgb 12.4 L, Hct 37.9 L, MCV 91.0, MCH 29.7, MCHC 32.7, RDW 14.9, Plt Count 288, MPV 8.0, Neut % (Auto) 75.4, Lymph % (Auto) 16.8, [place] % (Auto) 4.3, Eos % (Auto) 2.5, Baso % (Auto) 1.1, Neut # (Auto) 8.2 H, Lymph # (Auto) 1.8, [place] # (Auto) 0.5, Eos # (Auto) 0.3, Baso # (Auto) 0.1 03/13/22 05:39: Sodium 137, Potassium 4.1, Chloride 108 H, Carbon Dioxide 23, Anion Gap 10.1, BUN 20, Creatinine 1.80 H, Estimated Creat Clear 34, Estimated GFR 36 L, Est GFR ( Amer) 44 L, Glucose 130 H, Calcium 7.9 L I & O for Last 24 hours: Intake & Output 03/10/22 03/11/22 03/12/22 03/13/22 11:59 11:59 11:59 11:59 Intake Total 720 / 720 Output Total 0 / 0 200 / 200 Balance 0 / 0 520 / 520 Weight 173 lb 166 lb 7.889 oz 166 lb 7.889 oz - Constitutional Comments: Currently resting - *Routine Respiratory Exam Absent: respiratory distress
[2022-03-13 08:00] VITALS: BP 148/94; PULSE 90; PULSE 95; RESP 16; TEMP 37.3; O2SAT 94
--- NOTE | 2022-03-13 08:11 | HMH.DCSUM ---
General - General Admission date:: 03/11/22 Discharge date: 03/13/22 HPI HPI: Mr. Wright is a pleasant 81-year-old male with dementia, CKD, history of colon cancer status post partial colectomy who presented to the ER yesterday due to worsening dyspnea at rest and with exertion. On arrival, patient's blood pressure is slightly elevated but had no oxygen requirement. Initial work-up concerning for CHF exacerbation with elevated BNP. Chest imaging showing bilateral effusions. Patient has no complaints however family reports symptom changes for him. Patient was admitted for further management and work-up of his dyspnea. He has remained stable overnight with no oxygen requirement. Sitting upright in bedside chair eating breakfast this morning on exam. Daughter and at bedside. States he has been breathing more heavily and has less exercise tolerance since last admission for UTI. Has had daily cough but it is nonproductive. No fever, nausea, vomiting. Stools at baseline. Hospital Course Hospital Course: Patient was admitted. Please see daily progress notes for hospital course. Patient was found to have pleural effusion. Thoracentesis attempt revealed clotted blood and this was abandoned. Repeat chest x-ray showed no pneumothorax. Overall patient did well after this. Symptoms well controlled of dyspnea and pain. Family elected to pursue no further intervention given high risk of problems, possible malignancy in the chest, etc. plan will be to discharge home today. Patient and family have an excellent home set up with DME equipment, waiver program help and lots of help from family and private sitters. Objective Vital signs: Temp Pulse Resp BP Pulse Ox 98.9 F 104 H 18 131/72 91 L 03/13/22 04:00 03/13/22 04:00 03/13/22 04:00 03/13/22 04:00 03/13/22 04:00 mild distress, chronically ill appearing - *Routine HEENT Exam Head: Present: normocephalic Eye: Present: EOMI, PERRL ENT: Present: mucous membranes moist - *Routine Neck Exam Present: supple - *Routine Respiratory Exam Present: decreased breath sounds - *Routine Cardiovascular Exam Present: RRR - *Routine Abdominal Exam Present: soft, normoactive bowel sounds. Absent: tenderness - *Routine Extremities Exam Absent: cyanosis, clubbing, edema - *Routine Skin Exam Present: warm. Absent: rash - *Routine Neurological Exam Present: alert Significant dementia. Pleasant and oriented x1 - Detailed Eye Exam Eyelids: Bilateral normal inspection Results Labs on day of discharge: Labs from last 24 hours 03/13/22 03/13/22 03/13/22 05:39 05:39 04:54 WBC 10.9 H D RBC 4.17 L Hgb 12.4 L Hct 37.9 L MCV 91.0 MCH 29.7 MCHC 32.7 RDW 14.9 Plt Count 288 MPV 8.0 Neut % (Auto) 75.4 Lymph % (Auto) 16.8 [place] % (Auto) 4.3 Eos % (Auto) 2.5 Baso % (Auto) 1.1 Neut # (Auto) 8.2 H Lymph # (Auto) 1.8 [place] # (Auto) 0.5 Eos # (Auto) 0.3 Baso # (Auto) 0.1 Sodium 137 Potassium 4.1 Chloride 108 H Carbon Dioxide 23 Anion Gap 10.1 BUN 20 Creatinine 1.80 H Estimated Creat Clear 34 Estimated GFR 36 L Est GFR ( Amer) 44 L Glucose 130 H POC Glucose 131 H Calcium 7.9 L 03/12/22 03/12/22 20:45 16:41 WBC RBC Hgb Hct MCV MCH MCHC RDW Plt Count MPV Neut % (Auto) Lymph % (Auto) [place] % (Auto) Eos % (Auto) Baso % (Auto) Neut # (Auto) Lymph # (Auto) [place] # (Auto) Eos # (Auto) Baso # (Auto) Sodium Potassium Chloride Carbon Dioxide Anion Gap BUN Creatinine Estimated Creat Clear Estimated GFR Est GFR ( Amer) Glucose POC Glucose 113 H 246 H Calcium DS: Diagnosis - Discharge Diagnosis (1) Bilateral pleural effusion Status: Chronic (2) Dyspnea Status: Chronic (3) Heart failure Status: Chronic (4) Cholelithiasi
--- NOTE | 2022-03-13 08:25 | PC.NURSE ---
dr elias stated to not place a follow up appointment. family was instructed to follow up as needed in regards to care at home.
--- NOTE | 2022-03-13 11:46 | SW/DCPLANNER ---
Updated patient information and has been faxed to [facility] to resume home health services. Patient will discharge home later today.
--- NOTE | 2022-03-14 13:23 | CARE MANAGER ---
Contacted patient's regarding follow up from the hospital. Patient did not go home on new medications and will follow up with Dr. Yeager as needed. They deny any questions or concerns. KASSY Erickson
== END 2022-03-13 11:08 | disposition home health service (06) ==
LOC: UTC 12:05 → ER 12:06 → 2ND 20:15
PROVIDERS: Admitting Provider Family Medicine; Emergency Provider Emergency Medicine; PCP Internal Medicine Adolescent Medicine; Visit Provider Internal Medicine Adolescent Medicine
DX: I50.9 Heart failure, unspecified (principal); R06.02 Shortness of breath; Z20.822 Contact with and (suspected) exposure to COVID-19; J90 Pleural effusion, not elsewhere classified; N18.9 Chronic kidney disease, unspecified; E11.22 Type 2 diabetes mellitus with diabetic chronic kidney disease; I13.0 Hypertensive heart and chronic kidney disease with heart failure and stage 1 through stage 4 chronic kidney disease, or unspecified chronic kidney disease; Z95.5 Presence of coronary angioplasty implant and graft; I25.10 Atherosclerotic heart disease of native coronary artery without angina pectoris; K80.20 Calculus of gallbladder without cholecystitis without obstruction; K21.9 Gastro-esophageal reflux disease without esophagitis; Z79.4 Long term (current) use of insulin
CPT/HCPCS: 32554; G0378; 36415; 71045; 71046; 71275; 80048; 80053; 82962; 83605; 83880; 84436; 84443; 84484; 85025; 86140; 88112; 88305; 93005; 93306; 94761; 96374; 99285; C9803; Q9967; U0003; U0005